=== PATIENT | female | born 1935 | race Caucasian/White ===

== ENCOUNTER → 2016-11-30 | Outpatient (CLI) | payer MEDICARE, OTHER ==
[2016-11-30 10:07] LABS: ALANINE AMINOTRANSFERASE 24 U/L (9-52); ALBUMIN 4.2 g/dL (3.5-5.0); ALKALINE PHOSPHATASE 102 U/L (38-126); ANION GAP 12 (5-19); ASPARTATE AMINO TRANSFERASE 20 U/L (14-36); BILIRUBIN,DIRECT 0.4 mg/dL (0.0-0.4); BILIRUBIN,TOTAL 0.9 mg/dL (0.2-1.3); BLOOD UREA NITROGEN 13 mg/dL (7-20); CALCIUM 9.8 mg/dL (8.4-10.2); CARBON DIOXIDE 31 mmol/L (22-30); CHLORIDE 94 mmol/L (98-107); CHOLESTEROL 214.42 mg/dL (0-200); CREATININE RESULT 0.86 mg/dL (0.52-1.25); Direct HDL 63 mg/dL (>40); GLUCOSE 87 mg/dL (75-110); POTASSIUM 4.2 mmol/L (3.6-5.0); SODIUM 136.5 mmol/L (137-145); TOTAL PROTEIN 7.2 g/dL (6.3-8.2); TRIGLYCERIDES 178 mg/dL (<150)
[2016-11-30 10:18] LABS: DIRECT LDL 90 mg/dL (<100)
[2016-11-30 11:07] LABS: FOLATE > 20.00 ng/mL (>2.76); VLDL CHOLESTEROL 35.6 mg/dL (10-31)
== END ==
LOC: OD 08:28
PROVIDERS: ATTEND Internal Medicine Geriatric Medicine
DX: I10 Essential (primary) hypertension (principal); R41.3 Other amnesia
CPT/HCPCS: 36415; 80053; 80061; 82607; 82746; 84443; 86592

== ENCOUNTER 2017-01-30 15:12 | Observation (INO) | payer MEDICARE, OTHER ==
[2017-01-30 16:33] LABS: ABSOLUTE BASOPHILS # (AUTO) 0.1 10^3/uL (0.0-0.2); ABSOLUTE EOSINOPHILS # (AUTO) 0.1 10^3/uL (0.0-0.6); ABSOLUTE LYMPHOCYTES (AUTO) 1.3 10^3/uL (0.5-4.7); ABSOLUTE MONOCYTES (AUTO) 0.6 10^3/uL (0.1-1.4); ABSOLUTE NEUT (AUTO) 3.4 10^3/uL (1.7-8.2); BASOPHILS % (AUTO) 1.1 % (0-2); EOSINOPHILS % (AUTO) 2.2 % (0-6); HEMATOCRIT 39.7 % (36.0-47.0); HEMOGLOBIN 13.4 g/dL (12.0-15.5); HGB HCT DIFFERENCE 0.5; LYMPHOCYTES % (AUTO) 23.6 % (13-45); MEAN CORPUSCULAR HEMOGLOBIN 27.7 pg (27.0-33.4); MEAN CORPUSCULAR HGB CONC 33.7 g/dL (32.0-36.0); MEAN CORPUSCULAR VOLUME 82 fl (80-97); RED BLOOD COUNT 4.83 10^6/uL (3.72-5.28); RED CELL DISTRIBUTION WIDTH 14.3 % (11.5-14.0); SEGMENTED NEUTROPHILS % (AUTO) 62.1 % (42-78); WHITE BLOOD COUNT 5.5 10^3/uL (4.0-10.5)
[2017-01-30 16:43] LABS: ALANINE AMINOTRANSFERASE 19 U/L (9-52); ALBUMIN 4.3 g/dL (3.5-5.0); ALKALINE PHOSPHATASE 99 U/L (38-126); ANION GAP 12 (5-19); ASPARTATE AMINO TRANSFERASE 18 U/L (14-36); BILIRUBIN,DIRECT 0.4 mg/dL (0.0-0.4); BILIRUBIN,TOTAL 0.7 mg/dL (0.2-1.3); BLOOD UREA NITROGEN 9 mg/dL (7-20); CALCIUM 9.6 mg/dL (8.4-10.2); CARBON DIOXIDE 30 mmol/L (22-30); CHLORIDE 90 mmol/L (98-107); CREATININE RESULT 0.91 mg/dL (0.52-1.25); GLUCOSE 88 mg/dL (75-110); POTASSIUM 3.7 mmol/L (3.6-5.0); SODIUM 132.1 mmol/L (137-145); TOTAL PROTEIN 7.5 g/dL (6.3-8.2)
[2017-01-30] MEDS ORDERED: ONDANSETRON HCL INJ/PF 4 MG/2 ML SDV IV PRN (16:45)
[2017-01-30] MEDS ORDERED: NORMAL SALINE 1000 ML 1,000 ML IV PRN ×2 (16:45→18:39)
[2017-01-30] MEDS ORDERED: ENOXAPARIN SODIUM INJ 40 MG/0.4 ML DISP.SYRIN SUBCUT ONE (17:00)
--- NOTE | 2017-01-30 17:18 | RADIOLOGY REPORT (SQ) ---
EXAM DESCRIPTION: CHEST PA/LAT COMPLETED DATE/TIME: 01/30/2017 4:59 pm REASON FOR STUDY: nausea and vomiting COMPARISON: Chest films 01/20/2014, 02/22/2015, 10/27/2015 EXAM PARAMETERS: NUMBER OF VIEWS: two views TECHNIQUE: Digital Frontal and Lateral radiographic views of the chest acquired. RADIATION DOSE: NA LIMITATIONS: none FINDINGS: LUNGS AND PLEURA: No opacities, masses or pneumothorax. No pleural effusion. MEDIASTINUM AND HILAR STRUCTURES: No masses or contour abnormalities. HEART AND VASCULAR STRUCTURES: Heart normal size. No evidence for failure. BONES: No acute findings. HARDWARE: Clips right upper quadrant post cholecystectomy. OTHER: No other significant finding. IMPRESSION: NO SIGNIFICANT RADIOGRAPHIC FINDING IN THE CHEST. TECHNICAL DOCUMENTATION: JOB ID: [id number] [employer]- All Rights Reserved
--- NOTE | 2017-01-30 17:19 | RADIOLOGY REPORT (SQ) ---
EXAM DESCRIPTION: KUB/ABDOMEN (SINGLE VIEW) COMPLETED DATE/TIME: 01/30/2017 4:59 pm REASON FOR STUDY: nausea and vomiting R11.10 VOMITING, UNSPECIFIED N39.0 URINARY TRACT INFECTION, SITE NOT SPECIFIED COMPARISON: 04/02/2015 NUMBER OF VIEWS: One view. TECHNIQUE: Supine radiographic image of the abdomen acquired. LIMITATIONS: None. FINDINGS: BOWEL GAS PATTERN: Normal bowel gas pattern. No dilated loops. Large amount of stool in t he ascending and transverse colon. CALCIFICATIONS: Calcified pelvic phleboliths. Midline 2.5 cm pelvic calcification likely a calcified fibroid. SOFT TISSUES: No gross mass or suggestion of organomegaly. HARDWARE: Clips right upper quadrant post cholecystectomy BONES: No acute fracture. No worrisome bone lesions. OTHER: No other significant finding. IMPRESSION: Large amount of stool in the ascending and transverse colon. TECHNICAL DOCUMENTATION: JOB ID: [id number] [employer]- All Rights Reserved
[2017-01-30] MEDS ORDERED: LACTULOSE SYRUP 20 GM/30 ML UDCUP PO ONE (18:38)
[2017-01-30] MEDS ORDERED: DOCUSATE SODIUM 100 MG CAPSULE PO ONE (18:39)
--- NOTE | 2017-01-30 18:57 | PDOC H&P ---
History of Present Illness Admission Date/PCP: 01/30/17 15:12 LISA OSKUSH Patient complains of: Nausea, vomiting, general feeling of unwell History of Present Illness: HUNG STOCKTON is a 81 year old female who presented to my office earlier today with listed complaints. Patient reported onset of nausea and vomiting since last night. Associated increase belching. No abdominal pain or diarrhea. Patient actually reported constipation with bowel movement about twice per week. She denied any chest pain, shortness of breath, dysuria, frequency, hematuria, or flank pain. No fever or chills. Patient reported increasing eye itching, right more than left with some amount of crusted mucous discharge. She denied any eye pain. Past Medical History Cardiac Medical History: Reports: Coronary Artery Disease - HIGH CHOLESTEROL, Hypertension, Heart Murmur Denies: Myocardial Infarction Pulmonary Medical History: Reports: Asthma, Bronchitis, Chronic Obstructive Pulmonary Disease (COPD), Pneumonia Denies: Tuberculosis Neurological Medical History: Denies: Seizures Endocrine Medical History: Reports: Hypothyroidism Musculoskeltal Medical History: Reports: Arthritis Hematology: Reports: Anemia Past Surgical History Past Surgical History: Reports: Appendectomy, Cholecystectomy, Hysterectomy, Tubal Ligation Denies: Pacemaker Social History Smoking Status: Never Smoker Frequency of Alcohol Use: None Hx Recreational Drug Use: No Drugs: None Hx Prescription Drug Abuse: No - Advance Directive Resuscitation Status: Full Code Family History Family History: Reviewed & Not Pertinent Parental Family History Reviewed: Yes Children Family History Reviewed: Yes Sibling(s) Family History Reviewed.: Yes Medication/Allergy Home Medications: Cyclosporine [Restasis Droperette] 1 drop OU Q12 01/30/17 Docusate Sodium [Colace 100 mg Capsule] 100 mg PO QHS 01/30/17 Folic Acid/Vitamin B Comp W-C [Folbee Plus Tablet] 1 tab PO DAILY 01/30/17 Furosemide [Lasix] 40 mg PO DAILY 01/30/17 Hydralazine HCl [Apresoline 50 mg Tablet] 50 mg PO Q12 01/30/17 Latanoprost [Xalatan 0.005% Oph Soln 2.5 ml] 1 drop OU QHS 01/30/17 Levothyroxine Sodium [Synthroid 0.075 mg Tablet] 75 mcg PO DAILY 01/30/17 Losartan Potassium [Cozaar 100 mg Tablet] 100 mg PO DAILY 01/30/17 Montelukast Sodium [Singulair 10 mg Tablet] 10 mg PO QHS 01/30/17 Omeprazole 40 mg PO DAILY 01/30/17 Potassium Chloride [Klor-Con 10 Meq Tablet.sa] 10 meq PO DAILY 01/30/17 Sertraline HCl [Zoloft 50 mg Tablet] 50 mg PO QHS 01/30/17 Tiotropium [place] [Spiriva Handihaler 18 mcg/dose (30 Dose)] 1 cap IH DAILY Tolterodine Tartrate [Tolterodine Tartrate ER] 4 mg PO DAILY 01/30/17 Verapamil HCl [Verapamil ER] 240 mg PO Q12 01/30/17 Allergies/Adverse Reactions: codeine [Codeine] Allergy (Intermediate, Verified 05/15/13) celecoxib [From Celebrex] Allergy (Unknown, Verified 05/15/13) Iodinated Contrast- Oral and IV Dye [IV Dye, Iodine Containing] Allergy ( Verified 05/15/13) iodine [Iodine] Allergy (Verified 05/15/13) povidone-iodine [From Betadine] Allergy (Verified 05/15/13) Soap [From Betadine] Allergy (Verified 05/15/13) Review of Systems Constitutional: ABSENT: chills, fever(s), headache(s), weight gain, weight loss Eyes: ABSENT: visual disturbances Ears: ABSENT: hearing changes Nose, Mouth, and Throat: ABSENT: as per HPI, headache(s), mouth pain, sore throat, vertigo, other Cardiovascular: ABSENT: chest pain, dyspnea on exertion, edema, orthropnea, palpitations Respiratory: ABSENT: cough, hemoptysis Gastrointestinal: PRESENT: constipation, nausea, vomiting. ABSENT: as per HPI, abdominal pain, bloating, coffee ground emesis, diarrhea, dysphagia, heartburn, hematemesis, hematochezia, melena, other Genitourinary: ABSENT: as per HPI, difficulty urinating, dysuria, hematuria, nocturia, other Musculoskeletal: ABSENT: as per HPI, back pain, deformity, joint swelling, muscle weakness, other Integumentary: PRESENT: pruritus - around right eye. ABSENT: as per HPI, diaphoresis, erythema, lesions, rash, wounds, other Neurological: ABSENT: abnormal gait, abnormal speech, confusion, dizziness, focal weakness, syncope Psychiatric: ABSENT: as per HPI, anxiety, depression, hallucinations, homidical ideation, suicidal ideation, other Endocrine: ABSENT: as per HPI, cold intolerance, flushing, heat intolerance, polydipsia, polyphagia, polyuria, other Hematologic/Lymphatic: ABSENT: easy bleeding, easy bruising, lymphadenopathy Allergic/Immunologic: PRESENT: seasonal rhinorrhea Physical Exam Vital Signs: Temp Pulse Resp BP Pulse Ox 97.4 F 87 18 167/80 H 98 01/30/17 15:35 01/30/17 15:35 01/30/17 15:35 01/30/17 15:35 01/30/17 15:35 Intake & Output 01/29/17 01/30/17 01/31/17 06:59 06:59 06:59 Weight 65.3 kg General appearance: PRESENT: no acute distress, well-developed, well-nourished Head exam: PRESENT: atraumatic, normocephalic Eye exam: PRESENT: conjunctiva pink, EOMI, PERRLA. ABSENT: scleral icterus Ear exam: PRESENT: normal external ear exam Mouth exam: PRESENT: moist, tongue midline Teeth exam: ABSENT: dental caries, dental tenderness, edentulous, poor dentation , other Throat exam: ABSENT: post pharyngeal erythema, tonsillar erythema, tonsillar exudate, tonsillogmegaly, other Neck exam: PRESENT: full ROM. ABSENT: carotid bruit, JVD, lymphadenopathy, thyromegaly Respiratory exam: PRESENT: clear to auscultation kalyan. ABSENT: chest wall tenderness, crackles, prolonged expiratory phas, rhonchi, wheezes Cardiovascular exam: PRESENT: RRR. ABSENT: diastolic murmur, rubs, systolic murmur Pulses: PRESENT: normal dorsalis pedis pul, +2 pedal pulses bilateral Vascular exam: PRESENT: normal capillary refill GI/Abdominal exam: PRESENT: normal bowel sounds, soft. ABSENT: distended, guarding, mass, organolmegaly, rebound, tenderness Rectal exam: PRESENT: deferred Extremities exam: ABSENT: pedal edema Musculoskeletal exam: PRESENT: deformity - related to multiple joints involvement with arthritis Neurological exam: PRESENT: alert, awake, oriented to person, oriented to place , oriented to time, oriented to situation, CN II-XII grossly intact. ABSENT: motor sensory deficit Psychiatric exam: PRESENT: appropriate affect, normal mood. ABSENT: homicidal ideation, suicidal ideation Skin exam: PRESENT: dry, intact, warm. ABSENT: cyanosis, rash Results Laboratory Results: 01/30/17 16:20 01/30/17 16:20 01/30/17 01/30/17 16:20 16:20 WBC 5.5 RBC 4.83 Hgb 13.4 Hct 39.7 MCV 82 MCH 27.7 MCHC 33.7 RDW 14.3 H Plt Count 272 Seg Neutrophils % 62.1 Lymphocytes % 23.6 Monocytes % 11.0 Eosinophils % 2.2 Basophils % 1.1 Absolute Neutrophils 3.4 Absolute Lymphocytes 1.3 Absolute Monocytes 0.6 Absolute Eosinophils 0.1 Absolute Basophils 0.1 Sodium 132.1 L Potassium 3.7 Chloride 90 L Carbon Dioxide 30 Anion Gap 12 BUN 9 Creatinine 0.91 Est GFR ( Amer) > 60 Est GFR (Non-Af Amer) 59 L Glucose 88 Calcium 9.6 Total Bilirubin 0.7 AST 18 ALT 19 Alkaline Phosphatase 99 Total Protein 7.5 Albumin 4.3 Impressions: Chest X-Ray 01/30/17 00:00 IMPRESSION: NO SIGNIFICANT RADIOGRAPHIC FINDING IN THE CHEST. KUB X-Ray 01/30/17 00:00 IMPRESSION: Large amount of stool in the ascending and transverse colon. Assessment & Plan - Diagnosis (1) Nausea & vomiting Is this a current diagnosis for this admission?: YesPlan: See admitting physician orders. (2) Hyponatremia Is this a current diagnosis for this admission?: YesPlan: See admitting physician orders. (3) Constipation Qualifiers: Constipation type: chronic idiopathic constipation Qualified Code(s) : K59.04 - Chronic idiopathic constipation Is this a current diagnosis for this admission?: YesPlan: See admitting physician orders. (4) Hypothyroidism Qualifiers: Hypothyroidism type: unspecified Qualified Code(s): E03.9 - Hypothyroidism, unspecified Is this a current diagnosis for this admission?: YesPlan: See admitting physician orders. (5) HTN (hypertension) Qualifiers: Hypertension type: essential hypertension Qualified Code(s): I10 - Essential (primary) hypertension Is this a current diagnosis for this admission?: YesPlan: See admitting physician orders. (6) COPD (chronic obstructive pulmonary disease) Qualifiers: COPD type: unspecified COPD Qualified Code(s): J44.9 - Chronic obstructive pulmonary disease, unspecified Is this a current diagnosis for this admission?: YesPlan: See admitting physician orders. (7) Osteoarthritis involving multiple joints on both sides of body Is this a current diagnosis for this admission?: YesPlan: See admitting physician orders. (8) Anemia Qualifiers: Anemia type: unspecified type Qualified Code(s): D64.9 - Anemia, unspecified Is this a current diagnosis for this admission?: YesPlan: See admitting physician orders. - Time Time Spent: Greater than 70 Minutes Medications reviewed and adjusted accordingly: Yes Anticipated discharge: Home Within: within 48 hours - Inpatient Certification Medical Necessity: Need Close Monitoring Due to Risk of Patient Decompensation, Need For IV Fluids, Risk of Complication if Not Cared For in Hospital Post Hospital Care: D/C [employer] Documentation - Plan Summary Plan Summary: See admitting physician orders.
[2017-01-30] MEDS: OLOPATADINE HCL 0.1% OPH SOLN 5 ML OU SCH (21:26)
[2017-01-30] MEDS: CYCLOSPORINE 0.05% OPH EMULSIO 0.4 ML DROPERETTE OU SCH (21:28)
[2017-01-30] MEDS: HYDRALAZINE HCL 50 MG TABLET PO SCH (21:30)
[2017-01-30] MEDS: VERAPAMIL HCL 240 MG TABLET.SA PO SCH (21:31)
[2017-01-30] MEDS: SERTRALINE HCL 50 MG TABLET PO SCH (21:31)
[2017-01-30] MEDS: MONTELUKAST SODIUM 10 MG TABLET PO SCH (21:31)
[2017-01-30] MEDS: LATANOPROST 0.005% OPH SOLN 2.5 ML OU SCH (21:34)
[2017-01-31 02:19] LABS: APPEARANCE,URINE CLEAR; BILIRUBIN,URINE NEGATIVE (NEGATIVE); GLUCOSE, URINE NEGATIVE (NEGATIVE); KETONES,URINE NEGATIVE (NEGATIVE); LEUKOCYTE ESTERASE,URINE MODERATE (NEGATIVE); NITRITE,URINE NEGATIVE (NEGATIVE); PROTEIN,URINE NEGATIVE (NEGATIVE); URINE SPECIFIC GRAVITY 1.003; UROBILINOGEN,URINE NEGATIVE mg/dL (<2.0)
[2017-01-31 05:51] LABS: ANION GAP 9 (5-19); BLOOD UREA NITROGEN 8 mg/dL (7-20); CALCIUM 9.1 mg/dL (8.4-10.2); CARBON DIOXIDE 27 mmol/L (22-30); CHLORIDE 96 mmol/L (98-107); CREATININE RESULT 0.87 mg/dL (0.52-1.25); GLUCOSE 82 mg/dL (75-110); POTASSIUM 3.5 mmol/L (3.6-5.0); SODIUM 131.8 mmol/L (137-145)
--- NOTE | 2017-01-31 09:00 | PDOC PROGRESS REPORT ---
Subjective Progress Note for:: 01/31/17 Subjective:: No bowel movement so far. Patient denied any significant nausea or vomiting since admission. No abdominal pain. No chest pain or difficulty with breathing. No dysuria. No fever or chills. Physical Exam Vital Signs: Temp Pulse Resp BP Pulse Ox 97.8 F 77 16 135/63 H 96 01/31/17 04:00 01/31/17 04:00 01/31/17 04:00 01/31/17 04:00 01/31/17 04:00 Intake & Output 01/30/17 01/31/17 02/01/17 06:59 06:59 06:59 Intake Total 420 Output Total 450 Balance -30 Weight 67.7 kg General appearance: PRESENT: no acute distress, well-developed, well-nourished Head exam: PRESENT: atraumatic, normocephalic Eye exam: PRESENT: conjunctiva pink, EOMI, PERRLA. ABSENT: scleral icterus Mouth exam: PRESENT: moist, tongue midline Respiratory exam: PRESENT: clear to auscultation kalyan Cardiovascular exam: PRESENT: RRR. ABSENT: diastolic murmur, rubs, systolic murmur GI/Abdominal exam: PRESENT: normal bowel sounds, soft. ABSENT: distended, guarding, mass, organolmegaly, rebound, tenderness Extremities exam: ABSENT: pedal edema Musculoskeletal exam: PRESENT: deformity - due to multiple joint involvement with arthritis. Neurological exam: PRESENT: alert, awake, oriented to person, oriented to place , oriented to time, oriented to situation, CN II-XII grossly intact. ABSENT: motor sensory deficit Psychiatric exam: PRESENT: appropriate affect, normal mood. ABSENT: homicidal ideation, suicidal ideation Skin exam: PRESENT: dry, intact, warm. ABSENT: cyanosis, rash Results Laboratory Results: 01/30/17 16:20 01/31/17 04:38 01/30/17 01/30/17 01/30/17 16:20 16:20 16:20 WBC 5.5 RBC 4.83 Hgb 13.4 Hct 39.7 MCV 82 MCH 27.7 MCHC 33.7 RDW 14.3 H Plt Count 272 Seg Neutrophils % 62.1 Lymphocytes % 23.6 Monocytes % 11.0 Eosinophils % 2.2 Basophils % 1.1 Absolute Neutrophils 3.4 Absolute Lymphocytes 1.3 Absolute Monocytes 0.6 Absolute Eosinophils 0.1 Absolute Basophils 0.1 Sodium 132.1 L Potassium 3.7 Chloride 90 L Carbon Dioxide 30 Anion Gap 12 BUN 9 Creatinine 0.91 Est GFR ( Amer) > 60 Est GFR (Non-Af Amer) 59 L Glucose 88 Serum Osmolality 267 L Calcium 9.6 Total Bilirubin 0.7 AST 18 ALT 19 Alkaline Phosphatase 99 Total Protein 7.5 Albumin 4.3 Urine Color Urine Appearance Urine pH Ur Specific [place] Urine Protein Urine Glucose (UA) Urine Ketones Urine Blood Urine Nitrite Ur Leukocyte Esterase Urine WBC (Auto) Urine RBC (Auto) Urine Osmolality 01/31/17 01/31/17 01/31/17 01:55 01:55 04:38 WBC RBC Hgb Hct MCV MCH MCHC RDW Plt Count Seg Neutrophils % Lymphocytes % Monocytes % Eosinophils % Basophils % Absolute Neutrophils Absolute Lymphocytes Absolute Monocytes Absolute Eosinophils Absolute Basophils Sodium 131.8 L Potassium 3.5 L Chloride 96 L Carbon Dioxide 27 Anion Gap 9 BUN 8 Creatinine 0.87 Est GFR ( Amer) > 60 Est GFR (Non-Af Amer) > 60 Glucose 82 Serum Osmolality Calcium 9.1 Total Bilirubin AST ALT Alkaline Phosphatase Total Protein Albumin Urine Color STRAW Urine Appearance CLEAR Urine pH 8.0 Ur Specific [place] 1.003 Urine Protein NEGATIVE Urine Glucose (UA) NEGATIVE Urine Ketones NEGATIVE Urine Blood NEGATIVE Urine Nitrite NEGATIVE Ur Leukocyte Esterase MODERATE H Urine WBC (Auto) 3 Urine RBC (Auto) 1 Urine Osmolality 163 L Impressions: Chest X-Ray 01/30/17 00:00 IMPRESSION: NO SIGNIFICANT RADIOGRAPHIC FINDING IN THE CHEST. KUB X-Ray 01/30/17 00:00 IMPRESSION: Large amount of stool in the ascending and transverse colon. Assessment & Plan - Diagnosis (1) Nausea & vomiting Is this a current diagnosis for this admission?: Yes (2) Hyponatremia Is this a current diagnosis for this admission?: YesPlan: Probably related to diuretic usage. She demonstrate hypokalemia which will be replaced and monitor response. Obtain serum magnesium level. Continue IV normal saline infusion. Repeat BMP this evening for need of further electrolyte correction. (3) Constipation Qualifiers: Constipation type: chronic idiopathic constipation Qualified Code(s) : K59.04 - Chronic idiopathic constipation Is this a current diagnosis for this admission?: YesPlan: Repeat lactulose 20 gm po q4hrs x 2 doses (4) Hypothyroidism Qualifiers: Hypothyroidism type: unspecified Qualified Code(s): E03.9 - Hypothyroidism, unspecified Is this a current diagnosis for this admission?: Yes (5) HTN (hypertension) Qualifiers: Hypertension type: essential hypertension Qualified Code(s): I10 - Essential (primary) hypertension Is this a current diagnosis for this admission?: Yes (6) COPD (chronic obstructive pulmonary disease) Qualifiers: COPD type: unspecified COPD Qualified Code(s): J44.9 - Chronic obstructive pulmonary disease, unspecified Is this a current diagnosis for this admission?: Yes (7) 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
[2017-01-31] MEDS: LOSARTAN POTASSIUM 50 MG TABLET PO SCH (09:07)
[2017-01-31] MEDS: TOLTERODINE TARTRATE 1 MG TABLET PO SCH (09:08)
[2017-01-31] MEDS: DOCUSATE SODIUM 100 MG CAPSULE PO SCH (09:08)
[2017-01-31] MEDS: POTASSIUM CHLORIDE 10 MEQ TABLET.SA PO SCH ×4 (09:09→17:22)
[2017-01-31] MEDS: HYDRALAZINE HCL 50 MG TABLET PO SCH ×2 (09:09→22:35)
[2017-01-31] MEDS: VERAPAMIL HCL 240 MG TABLET.SA PO SCH ×2 (09:09→22:34)
[2017-01-31] MEDS: CYANOCOBALAMIN/FA/PYRIDOXINE TABLET PO SCH (09:10)
[2017-01-31] MEDS: CYCLOSPORINE 0.05% OPH EMULSIO 0.4 ML DROPERETTE OU SCH ×2 (09:10→22:34)
[2017-01-31] MEDS: OLOPATADINE HCL 0.1% OPH SOLN 5 ML OU SCH ×2 (09:10→17:25)
[2017-01-31] MEDS: LANSOPRAZOLE 30 MG TAB.RAP.DR PO SCH (09:11)
[2017-01-31] MEDS: LACTULOSE SYRUP 20 GM/30 ML UDCUP PO SCH ×2 (09:11→14:24)
[2017-01-31] MEDS: LEVOTHYROXINE SODIUM 0.075 MG TABLET PO SCH (09:11)
[2017-01-31] MEDS: TIOTROPIUM BROMIDE DPI 5 CAP/KIT (18 MCG/CAP) IH SCH (09:11)
[2017-01-31] MEDS: ENOXAPARIN SODIUM INJ 40 MG/0.4 ML DISP.SYRIN SUBCUT SCH (09:12)
[2017-01-31] MEDS ORDERED: (PENDING PHARMACY ID) (Tolterodine Tartrate [Tolterodine Tartrate Er] 4 MG) PO SCH (10:00)
[2017-01-31] MEDS ORDERED: FOLIC ACID PO SCH (10:00)
[2017-01-31] MEDS ORDERED: FUROSEMIDE 40 MG TABLET PO SCH (10:00)
[2017-01-31] MEDS ORDERED: VITAMIN B COMP W C PO SCH (10:00)
[2017-01-31] MEDS ORDERED: MAGNESIUM SULFATE/D5W 100 ML IV ONE (18:04)
[2017-01-31 18:12] LABS: ANION GAP 12 (5-19); BLOOD UREA NITROGEN 7 mg/dL (7-20); CALCIUM 9.5 mg/dL (8.4-10.2); CARBON DIOXIDE 25 mmol/L (22-30); CHLORIDE 99 mmol/L (98-107); CREATININE RESULT 0.73 mg/dL (0.52-1.25); GLUCOSE 95 mg/dL (75-110); POTASSIUM 4.3 mmol/L (3.6-5.0); SODIUM 135.7 mmol/L (137-145)
[2017-01-31] MEDS: LATANOPROST 0.005% OPH SOLN 2.5 ML OU SCH (22:34)
[2017-01-31] MEDS: MONTELUKAST SODIUM 10 MG TABLET PO SCH (22:35)
[2017-01-31] MEDS: SERTRALINE HCL 50 MG TABLET PO SCH (22:35)
[2017-02-01 05:29] LABS: ANION GAP 10 (5-19); BLOOD UREA NITROGEN 6 mg/dL (7-20); CALCIUM 9.1 mg/dL (8.4-10.2); CARBON DIOXIDE 22 mmol/L (22-30); CHLORIDE 103 mmol/L (98-107); CREATININE RESULT 0.65 mg/dL (0.52-1.25); GLUCOSE 86 mg/dL (75-110); MAGNESIUM 1.9 mg/dL (1.6-2.3); POTASSIUM 4.8 mmol/L (3.6-5.0); SODIUM 134.5 mmol/L (137-145)
--- NOTE | 2017-02-01 08:46 | PDOC DISCHARGE SUMMARY ---
General - Admit/Disc Date/PCP Admission Date/Primary Care Provider: 01/30/17 18:40 LISA LUTZ Discharge Date: 02/01/17 - Discharge Diagnosis (1) Nausea & vomiting Is this a current diagnosis for this admission?: Yes (2) Hyponatremia Is this a current diagnosis for this admission?: Yes (3) Constipation Is this a current diagnosis for this admission?: Yes (4) Hypothyroidism Is this a current diagnosis for this admission?: Yes (5) HTN (hypertension) Is this a current diagnosis for this admission?: Yes (6) COPD (chronic obstructive pulmonary disease) Is this a current diagnosis for this admission?: Yes (7) Osteoarthritis involving multiple joints on both sides of body Is this a current diagnosis for this admission?: Yes (8) Anemia Is this a current diagnosis for this admission?: Yes - Additional Information Resuscitation Status: Full Code Home Medications: Cyclosporine [Restasis Droperette] 1 drop OU Q12 01/30/17 Folic Acid/Vitamin B Comp W-C [Folbee Plus Tablet] 1 tab PO DAILY 01/30/17 Hydralazine HCl [Apresoline 50 mg Tablet] 50 mg PO Q12 01/30/17 Latanoprost [Xalatan 0.005% Oph Soln 2.5 ml] 1 drop OU QHS 01/30/17 Levothyroxine Sodium [Synthroid 0.075 mg Tablet] 75 mcg PO DAILY 01/30/17 Losartan Potassium [Cozaar 100 mg Tablet] 100 mg PO DAILY 01/30/17 Montelukast Sodium [Singulair 10 mg Tablet] 10 mg PO QHS 01/30/17 Omeprazole 40 mg PO DAILY 01/30/17 Sertraline HCl [Zoloft 50 mg Tablet] 50 mg PO QHS 01/30/17 Tiotropium [place] [Spiriva Handihaler 18 mcg/dose (30 Dose)] 1 cap IH DAILY Tolterodine Tartrate [Tolterodine Tartrate ER] 4 mg PO DAILY 01/30/17 Verapamil HCl [Verapamil ER] 240 mg PO Q12 01/30/17 Docusate Sodium [Colace 100 mg Capsule] 200 mg PO QHS #60 capsule 02/01/17 Olopatadine HCl [Patanol 0.1% Oph Soln 5 ml] 1 drop OU BID #1 bottle 02/01/17 History of Present Illness History of Present Illness: HUNG STOCKTON is a 81 year old female who presented to my office earlier today with listed complaints. Patient reported onset of nausea and vomiting since last night. Associated increase belching. No abdominal pain or diarrhea. Patient actually reported constipation with bowel movement about twice per week. She denied any chest pain, shortness of breath, dysuria, frequency, hematuria, or flank pain. No fever or chills. Patient reported increasing eye itching, right more than left with some amount of crusted mucous discharge. She denied any eye pain. Hospital Course Hospital Course: Patient is doing well and tolerating oral feeding. No nausea, vomiting, or abdominal pain. She had satisfactory bowel movement. Her hyponatremia, most likely due to diuretic usage has improved. Her hypokalemia has improved. She is agreeable to discharge home today. She will follow up in the office as instructed upon discharge. Physical Exam Vital Signs: Temp Pulse Resp BP Pulse Ox 97.4 F 84 16 127/51 H 98 01/31/17 23:50 01/31/17 23:50 01/31/17 23:50 01/31/17 23:50 01/31/17 23:50 Intake & Output 01/31/17 02/01/17 02/02/17 06:59 06:59 06:59 Intake Total 420 600 Output Total 450 500 Balance -30 100 Weight 67.7 kg 67.4 kg Physical Exam: General appearance: PRESENT: no acute distress, well-developed, well-nourished Head exam: PRESENT: atraumatic, normocephalic Eye exam: PRESENT: conjunctiva pink, EOMI, PERRLA. ABSENT: scleral icterus Mouth exam: PRESENT: moist, tongue midline Respiratory exam: PRESENT: clear to auscultation kalyan Cardiovascular exam: PRESENT: RRR. ABSENT: diastolic murmur, rubs, systolic murmur GI/Abdominal exam: PRESENT: normal bowel sounds, soft. ABSENT: distended, guarding, mass, organomegaly, rebound, tenderness Extremities exam: ABSENT: pedal edema Musculoskeletal exam: PRESENT: deformity - due to multiple joint involvement with arthritis. Neurological exam: PRESENT: alert, awake, oriented to person, oriented to place , oriented to time, oriented to situation, CN II-XII grossly intact. ABSENT: motor sensory deficit Psychiatric exam: PRESENT: appropriate affect, normal mood. ABSENT: homicidal ideation, suicidal ideation Skin exam: PRESENT: dry, intact, warm. ABSENT: cyanosis, rash Results Laboratory Results: 01/30/17 16:20 02/01/17 04:43 01/31/17 01/31/17 02/01/17 04:38 17:44 04:43 Sodium 135.7 L 134.5 L Potassium 4.3 4.8 Chloride 99 103 Carbon Dioxide 25 22 Anion Gap 12 10 BUN 7 6 L Creatinine 0.73 0.65 Est GFR ( Amer) > 60 > 60 Est GFR (Non-Af Amer) > 60 > 60 Glucose 95 86 Calcium 9.5 9.1 Magnesium 1.6 1.9 Impressions: Chest X-Ray 01/30/17 00:00 IMPRESSION: NO SIGNIFICANT RADIOGRAPHIC FINDING IN THE CHEST. Status: Image reviewed by me - Her repeat KUB did revealed comparatively improved fecal burden. Qualifiers PATEINT BEING DISCHARGED WITH ANY OF THE FOLLOWING DIAGNOSIS?: No Plan Discharge Plan: D/C home today. Follow up in the office as instructed upon discharge.
--- NOTE | 2017-02-01 09:40 | RADIOLOGY REPORT (SQ) ---
EXAM DESCRIPTION: KUB/ABDOMEN (SINGLE VIEW) COMPLETED DATE/TIME: 02/01/2017 8:23 am REASON FOR STUDY: Constipation R11.10 VOMITING, UNSPECIFIED N39.0 URINARY TRACT INFECTION, SITE NO T SPECIFIED COMPARISON: None. NUMBER OF VIEWS: One view. TECHNIQUE: Supine radiographic image of the abdomen acquired. LIMITATIONS: None. FINDINGS: BOWEL GAS PATTERN: Moderate to large colonic stool burden. Nonspecific bowel gas pattern. CALCIFICATIONS: Calcification noted in the midline and pelvis could represent calcified fibroid. Pel jordi phleboliths noted. SOFT TISSUES: No gross mass or suggestion of organomegaly. HARDWARE: Prior cholecystectomy. BONES: Multilevel degenerative changes of the lumbar spine including degenerative disc disease and sp ondylosis. Levoconvex scoliosis of the spine. No acute osseous abnormality. No worrisome bony lesi ons. OTHER: No other significant finding. IMPRESSION: Moderate to large colonic stool burden. Nonspecific bowel gas pattern. Calcifications midline pelvis likely representing calcified uterine fibroid. TECHNICAL DOCUMENTATION: JOB ID: [id number] [employer]- All Rights Reserved
[2017-02-01] MEDS: CYANOCOBALAMIN/FA/PYRIDOXINE TABLET PO SCH (10:06)
[2017-02-01] MEDS: VERAPAMIL HCL 240 MG TABLET.SA PO SCH (10:06)
[2017-02-01] MEDS: LEVOTHYROXINE SODIUM 0.075 MG TABLET PO SCH (10:06)
[2017-02-01] MEDS: TOLTERODINE TARTRATE 1 MG TABLET PO SCH (10:06)
[2017-02-01] MEDS: TIOTROPIUM BROMIDE DPI 5 CAP/KIT (18 MCG/CAP) IH SCH (10:07)
[2017-02-01] MEDS: POTASSIUM CHLORIDE 10 MEQ TABLET.SA PO SCH (10:07)
[2017-02-01] MEDS: OLOPATADINE HCL 0.1% OPH SOLN 5 ML OU SCH (10:07)
[2017-02-01] MEDS: DOCUSATE SODIUM 100 MG CAPSULE PO SCH (10:07)
[2017-02-01] MEDS: LANSOPRAZOLE 30 MG TAB.RAP.DR PO SCH (10:07)
[2017-02-01] MEDS: CYCLOSPORINE 0.05% OPH EMULSIO 0.4 ML DROPERETTE OU SCH (10:08)
[2017-02-01] MEDS: LOSARTAN POTASSIUM 50 MG TABLET PO SCH (10:08)
[2017-02-01] MEDS: HYDRALAZINE HCL 50 MG TABLET PO SCH (10:08)
[2017-02-01] MEDS: ENOXAPARIN SODIUM INJ 40 MG/0.4 ML DISP.SYRIN SUBCUT SCH (10:18)
[2017-02-01 11:56] VITALS: BP 158/70
== END 2017-02-01 12:48 | disposition home or self-care (01) ==
LOC: EH 15:12 → UNDOADMOB 15:12 → 4N 15:12
PROVIDERS: ADMIT Internal Medicine Geriatric Medicine; ATTEND Internal Medicine Geriatric Medicine
DX: R11.2 Nausea with vomiting, unspecified (principal); E87.1 Hypo-osmolality and hyponatremia; K59.04 Chronic idiopathic constipation; E03.9 Hypothyroidism, unspecified; I10 Essential (primary) hypertension; J44.9 Chronic obstructive pulmonary disease, unspecified; M15.9 Polyosteoarthritis, unspecified; D64.9 Anemia, unspecified; I25.10 Atherosclerotic heart disease of native coronary artery without angina pectoris; L29.8 Other pruritus; J34.89 Other specified disorders of nose and nasal sinuses; G35 Multiple sclerosis; I83.93 Asymptomatic varicose veins of bilateral lower extremities; H57.9 Unspecified disorder of eye and adnexa; Z79.899 Other long term (current) drug therapy; Z90.49 Acquired absence of other specified parts of digestive tract; Z90.710 Acquired absence of both cervix and uterus; Z98.51 Tubal ligation status; Z80.9 Family history of malignant neoplasm, unspecified
CPT/HCPCS: 36415 ×3; 87086; 83735 ×2; 83930; 83935; 84300; 85025; 80048 ×2; 80053; 81001; 71020; 74000 ×2; G0378 ×3; G0379; A9270 ×27; J3490 ×2; J1650; J3475; J7030 ×2

== ENCOUNTER 2019-06-25 18:05 | Inpatient (IN) | payer MEDICARE, OTHER ==
[2019-06-25 18:41] LABS: ABSOLUTE BASOPHILS # (AUTO) 0.1 10^3/uL (0.0-0.2); ABSOLUTE EOSINOPHILS # (AUTO) 0.5 10^3/uL (0.0-0.6); ABSOLUTE LYMPHOCYTES (AUTO) 2.7 10^3/uL (0.5-4.7); ABSOLUTE NEUT (AUTO) 3.6 10^3/uL (1.7-8.2); BASOPHILS % (AUTO) 0.8 % (0-2); EOSINOPHILS % (AUTO) 6.5 % (0-6); HEMATOCRIT 37.7 % (36.0-47.0); HEMOGLOBIN 12.6 g/dL (12.0-15.5); MEAN CORPUSCULAR HEMOGLOBIN 28.1 pg (27.0-33.4); MEAN CORPUSCULAR HGB CONC 33.6 g/dL (32.0-36.0); MEAN CORPUSCULAR VOLUME 84 fl (80-97); MONOCYTES % (AUTO) 13.1 % (3-13); PLATELET COUNT 342 10^3/uL (150-450); RED BLOOD COUNT 4.51 10^6/uL (3.72-5.28); RED CELL DISTRIBUTION WIDTH 13.8 % (11.5-14.0); SEGMENTED NEUTROPHILS % (AUTO) 45.6 % (42-78); TOTAL CELLS COUNTED % (AUTO) 100 %; WHITE BLOOD COUNT 7.9 10^3/uL (4.0-10.5)
--- NOTE | 2019-06-25 18:48 | RADIOLOGY REPORT (SQ) ---
EXAM DESCRIPTION: CHEST SINGLE VIEW COMPLETED DATE/TIME: 06/25/2019 6:22 pm REASON FOR STUDY: bed 19 db COMPARISON: 01/30/2017 TECHNIQUE: Single frontal radiographic view of the chest acquired. NUMBER OF VIEWS: One view. LIMITATIONS: None. FINDINGS: LUNGS AND PLEURA: No pneumothorax. No consolidation or pleural effusion. MEDIASTINUM AND HILAR STRUCTURES: Stable. HEART AND VASCULAR STRUCTURES: Stable. BONES: No acute findings. HARDWARE: None in the chest. OTHER: No other significant finding. IMPRESSION: NO ACUTE FINDINGS. TECHNICAL DOCUMENTATION: JOB ID: [id number] [employer]- All Rights Reserved Reading location - IP/workstation name: [email or web address]
[2019-06-25 19:05] LABS: ALBUMIN 4.1 g/dL (3.5-5.0); ALKALINE PHOSPHATASE 90 U/L (38-126); ANION GAP 16 (5-19); ASPARTATE AMINO TRANSFERASE 25 U/L (14-36); BILIRUBIN,DIRECT 0.3 mg/dL (0.0-0.4); BILIRUBIN,TOTAL 0.8 mg/dL (0.2-1.3); BLOOD UREA NITROGEN 11 mg/dL (7-20); CALCIUM 9.5 mg/dL (8.4-10.2); CARBON DIOXIDE 23 mmol/L (22-30); CHLORIDE 97 mmol/L (98-107); CREATINE KINASE 113 U/L (30-135); GLUCOSE 110 mg/dL (75-110); POTASSIUM 3.7 mmol/L (3.6-5.0); TOTAL PROTEIN 6.8 g/dL (6.3-8.2)
[2019-06-25 19:19] LABS: CREATINE KINASE MB 1.08 ng/mL (<4.55)
[2019-06-25 19:23] LABS: TROPONIN I < 0.012 ng/mL
[2019-06-25] MEDS ORDERED: NORMAL SALINE 1000 ML 1,000 ML IV ONE (20:15)
--- NOTE | 2019-06-25 20:26 | EKG REPORT ---
SEVERITY:- ABNORMAL ECG - SINUS RHYTHM CONSIDER ANTEROSEPTAL INFARCT NONSPECIFIC T ABNORMALITIES, LATERAL LEADS : Confirmed by: Froylan Carlson MD 25-Jun-2019 20:25:52
[2019-06-25] MEDS ORDERED: IPRATROPIUM/ALBUTEROL 0.5-2.5 MG/3 ML AMPUL NEB ONE (20:47)
[2019-06-25] MEDS ORDERED: DOXYCYCLINE HYCLATE 100 MG TABLET PO ONE (21:42)
--- NOTE | 2019-06-25 21:43 | ER Document Report ---
Entered by ROSALIA BERG SCRIBE 06/25/191957 Acting as scribe for:EDWIGE CALDERON DO ED Respiratory Problem - General Chief Complaint: Shortness Of Breath Stated Complaint: SHORTNESS OF BREATH Time Seen by Provider: 06/25/19 18:21 Primary Care Provider: LISA LUTZ MD [Primary Care Provider] - Follow up as needed Mode of Arrival: Ambulatory Information source: Patient Notes: This 83-year-old female patient presents to the emergency department today with complaints of shortness of breath. Patient was given Solu-Medrol and magnesium by EMS prior to arrival here which she states seemed to help a lot. Patient is a former smoker, stating that she stopped smoking several years ago. Patient denies fevers. TRAVEL OUTSIDE OF THE [place] IN LAST 30 DAYS: No - Related Data Allergies/Adverse Reactions: codeine [Codeine] Allergy (Intermediate, Verified 05/15/13 00:26) celecoxib [From Celebrex] Allergy (Unknown, Verified 05/15/13 00:26) Iodinated Contrast Media [IV Dye, Iodine Containing] Allergy (Verified 05/15/13 00:26) iodine [Iodine] Allergy (Verified 05/15/13 00:26) povidone-iodine [From Betadine] Allergy (Verified 05/15/13:26) Soap [From Betadine] Allergy (Verified 05/15/13 00:26) Past Medical History - General Information source: Patient - Social History Smoking Status: Former Smoker Cigarette use (# per day): No Chew tobacco use (# tins/day): No Smoking Education Provided: No Frequency of alcohol use: None Drug Abuse: None Lives with: Family Family History: Reviewed & Not Pertinent Patient has suicidal ideation: No Patient has homicidal ideation: No - Past Medical History Cardiac Medical History: Reports: Hx Coronary Artery Disease - HIGH CHOLESTEROL, Hx Hypertension, Hx Heart Murmur Pulmonary Medical History: Reports: Hx Asthma, Hx Bronchitis, Hx COPD, Hx Pneumonia Endocrine Medical History: Reports: Hx Hypothyroidism Renal/ Medical History: Reports: Hx Kidney Stones, Hx Ovarian Cysts Musculoskeletal Medical History: Reports Hx Arthritis Traumatic Medical History: Reports: Hx Fractures - foot, tailbone, ribs Past Surgical History: Reports: Hx Appendectomy, Hx Cholecystectomy, Hx Hystere ctomy, Hx Tubal Ligation - Immunizations Hx Diphtheria, Pertussis, Tetanus Vaccination: No Hx Pneumococcal Vaccination: 05/06/11 Review of Systems - Review of Systems Constitutional: No symptoms reported EENT: No symptoms reported Cardiovascular: No symptoms reported Respiratory: See HPI, Short of breath Gastrointestinal: No symptoms reported Genitourinary: No symptoms reported Female Genitourinary: No symptoms reported Musculoskeletal: No symptoms reported Skin: No symptoms reported Hematologic/Lymphatic: No symptoms reported Neurological/Psychological: No symptoms reported -: Yes All other systems reviewed and negative Physical Exam - Vital signs Vitals: Pulse Ox 100 06/25/19 18:06 - Notes Notes: Physical Exam: General: Alert, appears short of breath. HEENT: Normocephalic. Atraumatic. PERRL. Extraocular movements intact. Oropharynx clear. Neck: Supple. Non-tender. Respiratory: Mild respiratory distress. Nasal cannula in place, wheezing bilaterally. Cardiovascular: Regular rate and rhythm. Abdominal: Normal Inspection. Non-tender. No distension. Normal Bowel Sounds. Back: No gross abnormalities. Extremities: Moves all four extremities. Upper extremities: Normal inspection. Normal ROM. Lower extremities: Normal inspection. No edema. Normal ROM. Neurological: Normal cognition. AAOx4. Normal speech. Psychological: Normal affect. Normal Mood. Skin: Warm. Dry. Normal color. Course - Re-evaluation Re-evalutation: 06/25/19 21:00 Patient is an 83-year-old female with a history of COPD who comes in with difficulty breathing. No productive cough or fever. Patient was using nebulizer treatments at home. Received Solu-Medrol magnesium from EMS. Patient still with some difficulty breathing and slight wheezing. Discussed with her primary care doctor who will admit her patient is agreeable to this plan. She has a new oxygen requirement today and will need to stay due to hypoxia. No evidence for pneumonia. Stable at the time of admission. Patient is agreeable to this plan. - Vital Signs Vital signs: Temp Pulse Resp BP Pulse Ox 99.2 F 19 125/64 99 06/25/19 18:37 06/25/19 20:01 06/25/19 20:01 06/25/19 20:01 - Laboratory Result Diagrams: 06/25/19 18:28 06/25/19 18:28 Laboratory results interpreted by me: 06/25/19 06/25/19 18:28 18:28 [place] % (Auto) 13.1 H Eos % (Auto) 6.5 H Sodium 135.5 L Chloride 97 L Discharge - Discharge Clinical Impression: COPD exacerbation, Respiratory distress Condition: Stable Disposition: ADMITTED INPATIENT Admitting Provider: Nanda Unit Admitted: Telemetry Referrals: LISA LUTZ MD [Primary Care Provider] - Follow up as needed I personally performed the services described in the documentation, reviewed and edited the documentation which was dictated to the scribe in my presence, and it accurately records my words and actions.
[2019-06-25 22:09] LABS: APPEARANCE,URINE CLEAR; BILIRUBIN,URINE NEGATIVE (NEGATIVE); COLOR,URINE STRAW; GLUCOSE, URINE NEGATIVE (NEGATIVE); KETONES,URINE NEGATIVE (NEGATIVE); LEUKOCYTE ESTERASE,URINE NEGATIVE (NEGATIVE); NITRITE,URINE NEGATIVE (NEGATIVE); PROTEIN,URINE NEGATIVE (NEGATIVE); URINE SPECIFIC GRAVITY 1.004; UROBILINOGEN,URINE NEGATIVE mg/dL (<2.0)
[2019-06-26] MEDS: METHYLPREDNISOLONE INJ 125 MG/2 ML SDV IV SCH ×3 (07:37→22:18)
[2019-06-26] MEDS: IPRATROPIUM/ALBUTEROL 0.5-2.5 MG/3 ML AMPUL NEB SCH ×4 (08:22→20:55)
[2019-06-26] MEDS: ENOXAPARIN SODIUM INJ 40 MG/0.4 ML DISP.SYRIN SUBCUT SCH (10:36)
[2019-06-26] MEDS: PANTOPRAZOLE SODIUM 40 MG TABLET.DR PO SCH (15:35)
[2019-06-26] MEDS ORDERED: TRAMADOL HCL 50 MG TABLET PO PRN (19:49)
[2019-06-26] MEDS ORDERED: FUROSEMIDE INJ/PF 40 MG/4 ML SDV IV ONE (19:49)
--- NOTE | 2019-06-26 21:01 | PDOC H&P ---
History of Present Illness Admission Date/PCP: 06/25/19 21:48 LISA NELDA Patient complains of: Difficulty with breathing History of Present Illness: HUNG STOCKTON is a 83 year old female patient known to my practice who presented to the ED with complain about worsening difficulty with breathing that start couple of hours prior to her arrival. She reported recent onset of coughing that worsen during the night. She admitted to nasal and sinus congestion for which she was recently treated for. She denied any associated ongoing fever or chills. She admitted to chest tightness but no definite chest pain. She reported significant sputum production with her coughing, mostly cloudy white in color but greenish in the morning. She activated the EMS service due to persistent of difficulty with breathing despite usage of her nebulizer therapy at home. En rou te to the ED EMS personnel did administer IV Solu Medrol ads well as IV Magnesium with some improvement. In the ED despite repeated nebulizer therapy and IV Solu Medrol she continue to demonstrate audible rhonchi and oxygen desaturation with effort. she was advised hospitalization for further evaluation and management. Her morbidities are listed below. She is a former cigarette smoker but quit several years ago. Past Medical History Cardiac Medical History: Reports: Coronary Artery Disease - HIGH CHOLESTEROL, Hypertension, Heart Murmur Denies: Myocardial Infarction Pulmonary Medical History: Reports: Asthma, Bronchitis, Chronic Obstructive Pulmonary Disease (COPD), Pneumonia Denies: Tuberculosis Neurological Medical History: Denies: Seizures Endocrine Medical History: Reports: Hypothyroidism GI Medical History: Reports: Gastroesophageal Reflux Disease Musculoskeltal Medical History: Reports: Arthritis, Other - Senile osteoporosis Psychiatric Medical History: Reports: Dementia, Depression Hematology: Reports: Anemia Past Surgical History Past Surgical History: Reports: Appendectomy, Cholecystectomy, Hysterectomy, Tubal Ligation Denies: Pacemaker Social History Lives with: Family Smoking Status: Former Smoker Number of Years Smokin Frequency of Alcohol Use: None Hx Recreational Drug Use: No Drugs: None Hx Prescription Drug Abuse: No - Advance Directive Resuscitation Status: Full Code Family History Family History: Reviewed & Not Pertinent Parental Family History Reviewed: Yes Children Family History Reviewed: Yes Sibling(s) Family History Reviewed.: Yes Medication/Allergy Home Medications: Benzonatate [Tessalon Perles 100 mg Capsule] 100 mg PO Q8 06/26/19 Furosemide [Lasix 40 mg Tablet] 40 mg PO DAILY 06/26/19 Hydralazine HCl 100 mg PO Q12 06/26/19 Ibandronate Sodium [Boniva] 150 mg PO .QMONTHLY 06/26/19 Ipratropium/Albuterol Sulfate [Combivent Respimat 4 gm Mdi] 1 puff IH Q6HP PRN 06/26/19 Latanoprost [Xalatan 0.005% Oph Soln 2.5 ml] 1 drop OU QHS 06/26/19 Levothyroxine Sodium [Synthroid 0.075 mg Tablet] 0.075 mg PO Q6AM 06/26/19 Losartan Potassium [Cozaar 100 mg Tablet] 100 mg PO DAILY 06/26/19 Montelukast Sodium [Singulair 10 mg Tablet] 10 mg PO QHS 06/26/19 Ranitidine HCl [Zantac] 300 mg PO DAILY 06/26/19 Verapamil HCl [Verapamil ER] 240 mg PO Q12 06/26/19 Allergies/Adverse Reactions: codeine [Codeine] Allergy (Intermediate, Verified 05/15/13:) celecoxib [From Celebrex] Allergy (Unknown, Verified 05/15/13:26) Iodinated Contrast Media [IV Dye, Iodine Containing] Allergy (Verified 05/15/13:) iodine [Iodine] Allergy (Verified 05/15/13:) povidone-iodine [From Betadine] Allergy (Verified 05/15/13:) Soap [From Betadine] Allergy (Verified 05/15/13:26) Review of Systems Constitutional: ABSENT: chills, fever(s), headache(s), weight gain, weight loss Eyes: PRESENT: visual disturbances Ears: PRESENT: hearing changes Nose, Mouth, and Throat: ABSENT: as per HPI, headache(s), mouth pain, sore throat, vertigo, other Cardiovascular: PRESENT: dyspnea on exertion Respiratory: PRESENT: cough, dyspnea, sputum Gastrointestinal: ABSENT: abdominal pain, constipation, diarrhea, hematemesis, hematochezia, nausea, vomiting Genitourinary: ABSENT: dysuria, hematuria Musculoskeletal: ABSENT: joint swelling Integumentary: ABSENT: rash, wounds Neurological: ABSENT: abnormal gait, abnormal speech, confusion, dizziness, focal weakness, syncope Psychiatric: ABSENT: anxiety, depression, homidical ideation, suicidal ideation Endocrine: ABSENT: cold intolerance, heat intolerance, polydipsia, polyuria Hematologic/Lymphatic: ABSENT: easy bleeding, easy bruising, lymphadenopathy Allergic/Immunologic: PRESENT: other - nasal, sinus and chest congestion. ABSENT: seasonal rhinorrhea Physical Exam Vital Signs: Temp Pulse Resp BP Pulse Ox 98.0 F 101 H 16 155/75 H 95 06/26/19 07:19 06/26/19 07:19 06/26/19 07:19 06/26/19 07:19 06/26/19 07:19 Intake & Output 06/25/19 06/26/19 06/27/19 06:59 06:59 06:59 Intake Total 1000 Balance 1000 Weight 64 kg General appearance: PRESENT: mild distress - remain on supplemental oxygen via nasal cannula Head exam: PRESENT: atraumatic, normocephalic Eye exam: PRESENT: conjunctiva pink, EOMI, PERRLA. ABSENT: scleral icterus Ear exam: PRESENT: normal external ear exam Mouth exam: PRESENT: moist Respiratory exam: PRESENT: decreased breath sounds, prolonged expiratory phas, rhonchi, wheezes Cardiovascular exam: PRESENT: RRR. ABSENT: diastolic murmur, rubs, systolic murmur Vascular exam: PRESENT: normal capillary refill. ABSENT: pallor GI/Abdominal exam: PRESENT: normal bowel sounds, soft. ABSENT: distended, guarding, mass, organolmegaly, rebound, tenderness Rectal exam: PRESENT: deferred Musculoskeletal exam: PRESENT: ambulatory Neurological exam: PRESENT: alert, awake, oriented to person, oriented to place, oriented to time, oriented to situation, CN II-XII grossly intact. ABSENT: mot or sensory deficit Psychiatric exam: PRESENT: appropriate affect, normal mood. ABSENT: homicidal ideation, suicidal ideation Skin exam: PRESENT: dry, warm Results Laboratory Results: 06/25/19 18:28 06/25/19 18:28 06/25/19 06/25/19 06/25/19 18:28 18:28 21:35 WBC 7.9 RBC 4.51 Hgb 12.6 Hct 37.7 MCV 84 MCH 28.1 MCHC 33.6 RDW 13.8 Plt Count 342 Seg Neutrophils % 45.6 Sodium 135.5 L Potassium 3.7 Chloride 97 L Carbon Dioxide 23 Anion Gap 16 BUN 11 Creatinine 0.88 Est GFR ( Amer) > 60 Glucose 110 Calcium 9.5 Total Bilirubin 0.8 AST 25 Alkaline Phosphatase 90 Total Protein 6.8 Albumin 4.1 Urine Color STRAW Urine Appearance CLEAR Urine pH 8.0 Ur Specific [place] 1.004 Urine Protein NEGATIVE Urine Glucose (UA) NEGATIVE Urine Ketones NEGATIVE Urine Blood NEGATIVE Urine Nitrite NEGATIVE Ur Leukocyte Esterase NEGATIVE Urine WBC (Auto) 1 Urine RBC (Auto) 1 06/25/19 06/25/19 18:28 18:28 Creatine Kinase 113 CK-MB (CK-2) 1.08 Troponin I < 0.012 Impressions: Chest X-Ray 06/25/19 18:11 IMPRESSION: NO ACUTE FINDINGS. Assessment & Plan - Diagnosis (1) Chronic obstructive pulmonary disease with hypoxia Is this a current diagnosis for this admission?: Yes Plan: See admitting attending physician orders for details about care plan. (2) URTI (infection of the upper respiratory tract) Qualifiers: URI type: unspecified URI Qualified Code(s): J06.9 - Acute upper respiratory infection, unspecified Is this a current diagnosis for this admission?: Yes Plan: See admitting attending physician orders for details about care plan. (3) HTN (hypertension) Qualifiers: Hypertension type: essential hypertension Qualified Code(s): I10 - Essential (primary) hypertension Is this a current diagnosis for this admission?: Yes Plan: See admitting attending physician orders for details about care plan. (5) Hypothyroidism Qualifiers: Hypothyroidism type: unspecified Qualified Code(s): E03.9 - Hypothyroidism, unspecified Is this a current diagnosis for this admission?: Yes Plan: See admitting attending physician orders for details about care plan. (6) GERD (gastroesophageal reflux disease) Qualifiers: Esophagitis presence: esophagitis presence not specified Qualified Code(s): K21.9 - Gastro-esophageal reflux disease without esophagitis Is this a current diagnosis for this admission?: Yes Plan: See admitting attending physician orders for details about care plan. (7) Osteoarthritis involving multiple joints on both sides of body Is this a current diagnosis for this admission?: Yes Plan: See admitting attending physician orders for details about care plan. (8) Depression Qualifiers: Depression Type: unspecified Qualified Code(s): F32.9 - Major depressive disorder, single episode, unspecified Is this a current diagnosis for this admission?: Yes Plan: See admitting attending physician orders for details about care plan. (9) Senile osteoporosis Is this a current diagnosis for this admission?: Yes Plan: See admitting attending physician orders for details about care plan. - Time Time Spent: 50 to 70 Minutes Medications reviewed and adjusted accordingly: Yes Anticipated discharge: Home with Homehealth Within: Other - Inpatient Certification Based on my medical assessment, after consideration of the patient's comorbidities, presenting symptoms, or acuity I expect that the services needed warrant INPATIENT care.: Yes I certify that my determination is in accordance with my understanding of Medicare's requirements for reasonable and necessary INPATIENT services [42 CFR 412.3e].: Yes Medical Necessity: Significant Comorbidiites Make Outpatient Treatment Too Risky, Need Close Monitoring Due to Risk of Patient Decompensation, Need For IV Fluids, Need For Continuous Telemetry Monitoring, Need for Nebulizer Therapy and Monitoring of Response, Need for IV Antibiotics, Risk of Complication if Not Cared For in Hospital, Risk of Diagnosis Which Will Require Inpatient Eval/Care/Monitoring 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
[2019-06-26] MEDS ORDERED: (PENDING PHARMACY ID) (Hydralazine Hcl [Hydralazine Hcl] 100 MG) PO SCH (22:00)
[2019-06-26] MEDS: MONTELUKAST SODIUM 10 MG TABLET PO SCH (22:18)
[2019-06-26] MEDS: HYDRALAZINE HCL 50 MG TABLET PO SCH (22:18)
[2019-06-26] MEDS: BENZONATATE 100 MG CAPSULE PO SCH (22:18)
[2019-06-26] MEDS: VERAPAMIL HCL 240 MG TABLET.SA PO SCH (22:19)
[2019-06-26] MEDS: DOXYCYCLINE HYCLATE 100 MG in DEXTROSE 5%-WATER 250 ML IV SCH (22:21)
[2019-06-27] MEDS: IPRATROPIUM/ALBUTEROL 0.5-2.5 MG/3 ML AMPUL NEB SCH ×6 (00:07→20:21)
[2019-06-27] MEDS: LATANOPROST 0.005% OPH SOLN 2.5 ML OU SCH ×2 (03:18→22:15)
[2019-06-27] MEDS: PANTOPRAZOLE SODIUM 40 MG TABLET.DR PO SCH (05:55)
[2019-06-27] MEDS: BENZONATATE 100 MG CAPSULE PO SCH ×3 (05:55→22:15)
[2019-06-27] MEDS: LEVOTHYROXINE SODIUM 0.075 MG TABLET PO SCH (05:55)
[2019-06-27] MEDS: METHYLPREDNISOLONE INJ 125 MG/2 ML SDV IV SCH ×3 (05:55→22:14)
[2019-06-27 06:02] LABS: HEMATOCRIT 37.5 % (36.0-47.0); HEMOGLOBIN 12.9 g/dL (12.0-15.5); MEAN CORPUSCULAR HEMOGLOBIN 28.5 pg (27.0-33.4); MEAN CORPUSCULAR HGB CONC 34.4 g/dL (32.0-36.0); MEAN CORPUSCULAR VOLUME 83 fl (80-97); PLATELET COUNT 306 10^3/uL (150-450); RED BLOOD COUNT 4.52 10^6/uL (3.72-5.28); RED CELL DISTRIBUTION WIDTH 13.8 % (11.5-14.0); WHITE BLOOD COUNT 12.8 10^3/uL (4.0-10.5)
[2019-06-27 06:18] LABS: ANION GAP 12 (5-19); BLOOD UREA NITROGEN 20 mg/dL (7-20); CALCIUM 9.8 mg/dL (8.4-10.2); CARBON DIOXIDE 25 mmol/L (22-30); CHLORIDE 97 mmol/L (98-107); GLUCOSE 155 mg/dL (75-110); POTASSIUM 3.4 mmol/L (3.6-5.0)
[2019-06-27 06:25] LABS: ABSOLUTE LYMPHOCYTES# (MANUAL) 0.5 10^3/uL (0.5-4.7); ABSOLUTE MONOCYTES # (MANUAL) 0.3 10^3/uL (0.1-1.4); BAND NEUTROPHILS % (MANUAL) 1 % (3-5); BASOPHILS % (MANUAL) 0 % (0-2); EOSINOPHILS % (MANUAL) 0 % (0-6); LYMPHOCYTES % (MANUAL) 4 % (13-45); MONOCYTES % (MANUAL) 2 % (3-13); SEGMENTED NEUTROPHILS % (MAN) 93 % (42-78); TOTAL CELLS COUNTED 100
[2019-06-27 06:27] LABS: BURR CELLS SLIGHT; OVALOCYTES SLIGHT; PLATELET COMMENT ADEQUATE; POIKILOCYTOSIS SLIGHT; TOXIC GRANULATION 1+
[2019-06-27] MEDS: LOSARTAN POTASSIUM 50 MG TABLET PO SCH (11:10)
[2019-06-27] MEDS: FUROSEMIDE 40 MG TABLET PO SCH (11:11)
[2019-06-27] MEDS: HYDRALAZINE HCL 50 MG TABLET PO SCH ×2 (11:11→22:12)
[2019-06-27] MEDS: VERAPAMIL HCL 240 MG TABLET.SA PO SCH ×2 (11:11→22:14)
[2019-06-27] MEDS: DOXYCYCLINE HYCLATE 100 MG in DEXTROSE 5%-WATER 250 ML IV SCH ×2 (11:12→22:15)
[2019-06-27] MEDS: ENOXAPARIN SODIUM INJ 40 MG/0.4 ML DISP.SYRIN SUBCUT SCH (11:13)
--- NOTE | 2019-06-27 19:28 | PDOC PROGRESS REPORT ---
Subjective Progress Note for:: 06/27/19 Subjective:: Patient continue to experience SOB with desaturation, particularly with exertion. No chest pain, palpitation, or leg swelling. No nausea, vomiting, or abdominal pain. Reason For Visit: EXACERBATED COPD WITH HYPOXE Physical Exam Vital Signs: Temp Pulse Resp BP Pulse Ox 98.3 F 85 17 121/49 L 95 06/27/19 16:00 06/27/19 16:00 06/27/19 16:00 06/27/19 16:00 06/27/19 16:00 Intake & Output 06/26/19 06/27/19 06/28/19 06:59 06:59 06:59 Intake Total 1000 1330 1970 Output Total 600 Balance 5069 464 1047 Weight 64 kg 64.7 kg General appearance: PRESENT: mild distress - remain on supplemental oxygen via nasal cannula. Head exam: PRESENT: atraumatic, normocephalic Eye exam: PRESENT: conjunctiva pink. ABSENT: scleral icterus Ear exam: PRESENT: normal external ear exam Mouth exam: PRESENT: moist Respiratory exam: PRESENT: decreased breath sounds, rhonchi - expiratory phase. Cardiovascular exam: PRESENT: RRR, +S1, +S2. ABSENT: diastolic murmur, rubs, systolic murmur Vascular exam: ABSENT: pallor GI/Abdominal exam: PRESENT: normal bowel sounds, soft. ABSENT: distended, guarding, mass, organolmegaly, rebound, tenderness Extremities exam: ABSENT: pedal edema Neurological exam: PRESENT: alert, awake, oriented to person, oriented to place, oriented to time Psychiatric exam: PRESENT: appropriate affect, normal mood. ABSENT: homicidal ideation, suicidal ideation Skin exam: PRESENT: dry, warm Results Laboratory Results: 06/27/19 05:23 06/27/19 05:23 06/27/19 06/27/19 05:23 05:23 WBC 12.8 H RBC 4.52 Hgb 12.9 Hct 37.5 MCV 83 MCH 28.5 MCHC 34.4 RDW 13.8 Plt Count 306 Seg Neutrophils % Not Reportable Sodium 134.1 L Potassium 3.4 L Chloride 97 L Carbon Dioxide 25 Anion Gap 12 BUN 20 Creatinine 1.02 Est GFR ( Amer) > 60 Glucose 155 H Calcium 9.8 06/25/19 06/25/19 18:28 18:28 Creatine Kinase 113 CK-MB (CK-2) 1.08 Troponin I < 0.012 Impressions: Chest X-Ray 06/25/19 18:11 IMPRESSION: NO ACUTE FINDINGS. Assessment & Plan - Diagnosis (1) Chronic obstructive pulmonary disease with hypoxia Is this a current diagnosis for this admission?: Yes (2) URTI (infection of the upper respiratory tract) Qualifiers: URI type: unspecified URI Qualified Code(s): J06.9 - Acute upper respiratory infection, unspecified Is this a current diagnosis for this admission?: Yes (3) HTN (hypertension) Qualifiers: Hypertension type: essential hypertension Qualified Code(s): I10 - Essential (primary) hypertension Is this a current diagnosis for this admission?: Yes (5) Hypothyroidism Qualifiers: Hypothyroidism type: unspecified Qualified Code(s): E03.9 - Hypothyroidism, unspecified Is this a current diagnosis for this admission?: Yes (6) GERD (gastroesophageal reflux disease) Qualifiers: Esophagitis presence: esophagitis presence not specified Qualified Code(s): K21.9 - Gastro-esophageal reflux disease without esophagitis Is this a current diagnosis for this admission?: Yes (7) Osteoarthritis involving multiple joints on both sides of body Is this a current diagnosis for this admission?: Yes (8) Depression Qualifiers: Depression Type: unspecified Qualified Code(s): F32.9 - Major depressive di sorder, single episode, unspecified Is this a current diagnosis for this admission?: Yes (9) Senile osteoporosis Is this a current diagnosis for this admission?: Yes (10) Hypokalemia Is this a current diagnosis for this admission?: Yes Plan: Start on potassium chloride 40 mEq p.o q 4 hours x 2 doses. Obtain serum Mag level. Continue other current medication management. - Time Time Spent with patient: 25-34 minutes Level of Care: IMCU Medications reviewed and adjusted accordingly: Yes Anticipated discharge: Home with Homehealth Within: Other - Inpatient Certification Based on my medical assessment, after consideration of the patient's comorbidities, presenting symptoms, or acuity I expect that the services needed warrant INPATIENT care.: Yes I certify that my determination is in accordance with my understanding of Medicare's requirements for reasonable and necessary INPATIENT services [42 CFR 412.3e].: Yes Medical Necessity: Significant Comorbidiites Make Outpatient Treatment Too Risky, Need Close Monitoring Due to Risk of Patient Decompensation, Need For Continuous Telemetry Monitoring, Need for Nebulizer Therapy and Monitoring of Response, Need for IV Antibiotics, Risk of Complication if Not Cared For in Hospital, Risk of Diagnosis Which Will Require Inpatient Eval/Care/Monitoring 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
[2019-06-27] MEDS ORDERED: ALPRAZOLAM 0.25 MG TABLET PO PRN (19:30)
[2019-06-27] MEDS: POTASSIUM CHLORIDE 20 MEQ PACKET PO SCH ×2 (19:47→22:14)
[2019-06-27] MEDS: MONTELUKAST SODIUM 10 MG TABLET PO SCH (22:14)
[2019-06-28] MEDS: IPRATROPIUM/ALBUTEROL 0.5-2.5 MG/3 ML AMPUL NEB SCH ×6 (00:02→19:47)
[2019-06-28 05:50] LABS: HEMATOCRIT 37.1 % (36.0-47.0); HEMOGLOBIN 12.8 g/dL (12.0-15.5); MEAN CORPUSCULAR HEMOGLOBIN 28.6 pg (27.0-33.4); MEAN CORPUSCULAR HGB CONC 34.6 g/dL (32.0-36.0); MEAN CORPUSCULAR VOLUME 83 fl (80-97); PLATELET COUNT 320 10^3/uL (150-450); RED BLOOD COUNT 4.49 10^6/uL (3.72-5.28); RED CELL DISTRIBUTION WIDTH 13.9 % (11.5-14.0); WHITE BLOOD COUNT 11.4 10^3/uL (4.0-10.5)
[2019-06-28] MEDS: BENZONATATE 100 MG CAPSULE PO SCH ×3 (06:01→21:31)
[2019-06-28] MEDS: METHYLPREDNISOLONE INJ 125 MG/2 ML SDV IV SCH ×3 (06:01→21:30)
[2019-06-28] MEDS: PANTOPRAZOLE SODIUM 40 MG TABLET.DR PO SCH (06:01)
[2019-06-28] MEDS: LEVOTHYROXINE SODIUM 0.075 MG TABLET PO SCH (06:01)
[2019-06-28 06:15] LABS: ABSOLUTE LYMPHOCYTES# (MANUAL) 0.7 10^3/uL (0.5-4.7); ABSOLUTE MONOCYTES # (MANUAL) 0.3 10^3/uL (0.1-1.4); BASOPHILS % (MANUAL) 0 % (0-2); EOSINOPHILS % (MANUAL) 0 % (0-6); LYMPHOCYTES % (MANUAL) 6 % (13-45); MONOCYTES % (MANUAL) 3 % (3-13); SEGMENTED NEUTROPHILS % (MAN) 91 % (42-78); TOTAL CELLS COUNTED 100
[2019-06-28 06:16] LABS: PLATELET COMMENT ADEQUATE; RBC MORPHOLOGY COMMENT NORMO-CYTIC/CHROMIC
[2019-06-28] MEDS: LOSARTAN POTASSIUM 50 MG TABLET PO SCH (09:38)
[2019-06-28] MEDS: HYDRALAZINE HCL 50 MG TABLET PO SCH ×2 (09:38→21:39)
[2019-06-28] MEDS: VERAPAMIL HCL 240 MG TABLET.SA PO SCH ×2 (09:38→21:31)
[2019-06-28] MEDS: FUROSEMIDE 40 MG TABLET PO SCH (09:38)
[2019-06-28] MEDS: ENOXAPARIN SODIUM INJ 40 MG/0.4 ML DISP.SYRIN SUBCUT SCH (09:39)
[2019-06-28] MEDS: DOXYCYCLINE HYCLATE 100 MG in DEXTROSE 5%-WATER 250 ML IV SCH ×2 (09:40→21:30)
--- NOTE | 2019-06-28 11:19 | PDOC PROGRESS REPORT ---
Subjective Progress Note for:: 06/28/19 Subjective:: Patient continue experience non productive cough, exertional dyspnea, and desaturation. No chest pain, palpitation, or leg swelling. Patient reported that she cough more when she lay in bed and she has been in bedside recliner most of the time. No nausea, vomiting, or abdominal pain. Reason For Visit: EXACERBATED COPD WITH HYPOXE Physical Exam Vital Signs: Temp Pulse Resp BP Pulse Ox 97.8 F 86 14 125/57 L 94 06/28/19 07:39 06/28/19 07:59 06/28/19 07:59 06/28/19 07:39 06/28/19 07:59 Intake & Output 06/27/19 06/28/19 06/29/19 06:59 06:59 06:59 Intake Total 1330 3060 Output Total 600 Balance 730 3060 Weight 64.7 kg 64.5 kg Physical Exam: General appearance: PRESENT: mild distress - remain on supplemental oxygen via nasal cannula. Head exam: PRESENT: atraumatic, normocephalic Eye exam: PRESENT: conjunctiva pink. ABSENT: pallor, scleral icterus Ear exam: PRESENT: normal external ear exam Mouth exam: PRESENT: moist Respiratory exam: PRESENT: decreased breath sounds, rhonchi - expiratory phase. Cardiovascular exam: PRESENT: RRR, +S1, +S2. ABSENT: diastolic murmur, rubs, systolic murmur GI/Abdominal exam: PRESENT: normal bowel sounds, soft. ABSENT: distended, guarding, mass, organomegaly, rebound, tenderness Extremities exam: ABSENT: pedal edema Neurological exam: PRESENT: alert, awake, oriented to person, oriented to place, oriented to time Psychiatric exam: PRESENT: appropriate affect, normal mood. ABSENT: homicidal ideation, suicidal ideation Skin exam: PRESENT: dry, warm Results Laboratory Results: 06/28/19 05:04 06/27/19 05:23 06/27/19 06/28/19 05:23 05:04 WBC 11.4 H RBC 4.49 Hgb 12.8 Hct 37.1 MCV 83 MCH 28.6 MCHC 34.6 RDW 13.9 Plt Count 320 Seg Neutrophils % Not Reportable Magnesium 2.1 06/25/19 06/25/19 18:28 18:28 Creatine Kinase 113 CK-MB (CK-2) 1.08 Troponin I < 0.012 Impressions: Chest X-Ray 06/25/19 18:11 IMPRESSION: NO ACUTE FINDINGS. Assessment & Plan - Diagnosis (1) Chronic obstructive pulmonary disease with hypoxia Is this a current diagnosis for this admission?: Yes (2) URTI (infection of the upper respiratory tract) Qualifiers: URI type: unspecified URI Qualified Code(s): J06.9 - Acute upper respiratory infection, unspecified Is this a current diagnosis for this admission?: Yes (3) HTN (hypertension) Qualifiers: Hypertension type: essential hypertension Qualified Code(s): I10 - Essential (primary) hypertension Is this a current diagnosis for this admission?: Yes (5) Hypothyroidism Qualifiers: Hypothyroidism type: unspecified Qualified Code(s): E03.9 - Hypothyroidism, unspecified Is this a current diagnosis for this admission?: Yes (6) GERD (gastroesophageal reflux disease) Qualifiers: Esophagitis presence: esophagitis presence not specified Qualified Code(s): K21.9 - Gastro-esophageal reflux disease without esophagitis Is this a current diagnosis for this admission?: Yes (7) Osteoarthritis involving multiple joints on both sides of body Is this a current diagnosis for this admission?: Yes (8) Depression Qualifiers: Depression Type: unspecified Qualified Code(s): F32.9 - Major depressive disorder, single episode, unspecified Is this a current diagnosis for this admission?: Yes (9) Senile osteoporosis Is this a current diagnosis for this admission?: Yes (10) Hypokalemia Is this a current diagnosis for this admission?: Yes - Time Time Spent with patient: 25-34 minutes Level of Care: IMCU Medications reviewed and adjusted accordingly: Yes Anticipated discharge: Home with Homehealth Within: Other - Inpatient Certification Based on my medical assessment, after consideration of the patient's comorbidities, presenting symptoms, or acuity I expect that the services needed warrant INPATIENT care.: Yes I certify that my determination is in accordance with my understanding of Medicare's requirements for reasonable and necessary INPATIENT services [42 CFR 412.3e].: Yes Medical Necessity: Significant Comorbidiites Make Outpatient Treatment Too Risky, Need Close Monitoring Due to Risk of Patient Decompensation, Need For Continuous Telemetry Monitoring, Need for Nebulizer Therapy and Monitoring of Response, Need for IV Antibiotics, Risk of Complication if Not Cared For in Hospital, Risk of Diagnosis Which Will Require Inpatient Eval/Care/Monitoring 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 Obtain stat echocardiogram for function and structural evaluation in view of her persistent symptoms and history of childhood rheumatic fever with unclear mitral valve disease.
[2019-06-28] MEDS: POTASSIUM CHLORIDE 20 MEQ PACKET PO SCH ×2 (12:41→15:19)
[2019-06-28] MEDS ORDERED: METHYLPREDNISOLONE INJ 40 MG/1 ML SDV IV SCH (14:00)
--- NOTE | 2019-06-28 15:43 | XCELERA REPORT ---
[address] [address] Transthoracic Echocardiogram Report Name: HUNG STOCKTON Age: 83 yrs Gender: Female : 1935 Patient Status: Inpatient Patient Location: [facility]^A Study Date: 06/28/2019 12:14 PM Height: 61 in Weight: 142 lb BSA: 1.6 m2 Procedure: A two-dimensional transthoracic echocardiogram with color flow and Doppler was performed. The study was technically difficult with many images being suboptimal in quality. Reason For Study: Dyspnea, hx rheumatic fever and mitral valve dx History: Other: Dyspnea, hx rheumatic fever and mitral valve dx. Ordering Physician: YAZ^^^MD Performed By: Stanford Acosta Interpretation Summary The left ventricle is normal in size. There is normal left ventricular wall thickness. LV EF is 65% Left ventricular systolic function is normal. Doppler measurements suggest impaired left ventricular relaxation, which is associated with grade I/IV or mild diastolic dysfunction The left ventricular wall motion is normal. There is no thrombus. Probably no ASD , VSD . or PFO seen. The right ventricle is normal in size and function. The right ventricle is not well visualized secondary to technical limitations The right atrium is normal. The left atrial size is normal. There is mild mitral annular calcification. There is no evidence of mitral valve prolapse. There is no vegetation seen on the mitral valve. There is no mitral valve stenosis. There is a moderate amount of mitral regurgitation There is no aortic valvular vegetation. There is aortic sclerosis without aortic stenosis. There is a mild to moderate amount of aortic regurgitation There is no tricuspid stenosis. There is a mild amount of tricuspid regurgitation There is mild pulmonary hypertension by echo RVSP is 36 to 41 mm of Hg , with RA mean of 5 to 10. There is no pulmonic valvular stenosis. There is no pulmonic valvular regurgitation. The aortic root is normal size. The inferior vena cava appeared normal and decreased > 50% with respiration (RAP 5-10 mmHg) There is no pericardial effusion. MMode/2D Measurements & Calculations RVDd: 3.5 cm LVIDd: 5.5 cm FS: 36.8 % Ao root diam: 3.5 cm IVSd: 0.81 cm LVIDs: 3.5 cm EDV(Teich): LVPWd: 0.79 cm 149.0 ml Ao root area: ESV(Teich): 9.8 cm2 50.6 ml LA dimension: EF(Teich): 66.1 % 3.7 cm LVLd ap4: 8.2 cm SV(MOD-sp4): EDV(MOD-sp4): 60.0 ml 110.0 ml LVLs ap4: 7.2 cm ESV(MOD-sp4): 50.0 ml EF(MOD-sp4): 54.5 % Doppler Measurements & Calculations MV E max yasmine: MV P1/2t max yasmine: Ao V2 max: AI max yasmine: 80.9 cm/sec 85.9 cm/sec 151.3 cm/sec 344.8 cm/sec MV A max yasmine: MV P1/2t: 65.7 msec Ao max PG: AI max P.5 mmHg 94.8 cm/sec MVA(P1/2t): 3.3 cm2 9.2 mmHg AI dec slope: MV E/A: 0.85 MV dec slope: 227.3 cm/sec2 AI P1/2t: 444.2 msec 382.9 cm/sec2 MV dec time: 0.24 sec LV V1 max PG: PA V2 max: TR max yasmine: AV P1/2t-pr_phl: 4.7 mmHg 96.3 cm/sec 279.6 cm/sec 444.2 msec LV V1 max: PA max P.7 mmHg TR max P.6 cm/sec 31.3 mmHg MV P1/2t-pr_phl: 65.7 msec Left Ventricle The left ventricle is normal in size. There is normal left ventricular wall thickness. LV EF is 65%. Left ventricular systolic function is normal. Doppler measurements suggest impaired left ventricular relaxation, which is associated with grade I/IV or mild diastolic dysfunction. The left ventricular wall motion is normal. There is no thrombus. Probably no ASD , VSD . or PFO seen. Right Ventricle The right ventricle is normal in size and function. The right ventricle is not well visualized secondary to technical limitations. Atria The right atrium is normal. The left atrial size is normal. Mitral Valve There is mild mitral annular calcification. There is no evidence of mitral valve prolapse. There is no vegetation seen on the mitral valve. There is no mitral valve stenosis. There is a moderate amount of mitral regurgitation. Aortic Valve There is no aortic valvular vegetation. There is aortic sclerosis without aortic stenosis. There is a mild to moderate amount of aortic regurgitation. Tricuspid Valve There is no tricuspid stenosis. There is a mild amount of tricuspid regurgitation. There is mild pulmonary hypertension by echo. RVSP is 36 to 41 mm of Hg , with RA mean of 5 to 10. Pulmonic Valve There is no pulmonic valvular stenosis. There is no pulmonic valvular regurgitation. Great Vessels The aortic root is normal size. The inferior vena cava appeared normal and decreased > 50% with respiration (RAP 5-10 mmHg). Effusions There is no pericardial effusion. : YAZ^^^Polly Baez
[2019-06-28] MEDS: MONTELUKAST SODIUM 10 MG TABLET PO SCH (21:30)
[2019-06-28] MEDS: LATANOPROST 0.005% OPH SOLN 2.5 ML OU SCH (21:31)
[2019-06-29] MEDS: IPRATROPIUM/ALBUTEROL 0.5-2.5 MG/3 ML AMPUL NEB SCH ×7 (00:07→23:59)
[2019-06-29] MEDS: METHYLPREDNISOLONE INJ 125 MG/2 ML SDV IV SCH ×3 (06:31→22:55)
[2019-06-29] MEDS: BENZONATATE 100 MG CAPSULE PO SCH ×3 (06:31→22:55)
[2019-06-29] MEDS: PANTOPRAZOLE SODIUM 40 MG TABLET.DR PO SCH (06:31)
[2019-06-29] MEDS: LEVOTHYROXINE SODIUM 0.075 MG TABLET PO SCH (06:31)
[2019-06-29] MEDS: HYDRALAZINE HCL 50 MG TABLET PO SCH ×2 (09:30→22:55)
[2019-06-29] MEDS: DOXYCYCLINE HYCLATE 100 MG in DEXTROSE 5%-WATER 250 ML IV SCH ×2 (09:30→22:54)
[2019-06-29] MEDS: VERAPAMIL HCL 240 MG TABLET.SA PO SCH ×2 (09:30→22:55)
[2019-06-29] MEDS: POTASSIUM CHLORIDE 10 MEQ TABLET.ER PO SCH (09:30)
[2019-06-29] MEDS: FUROSEMIDE 40 MG TABLET PO SCH (09:31)
[2019-06-29] MEDS: LOSARTAN POTASSIUM 50 MG TABLET PO SCH (09:31)
[2019-06-29] MEDS: ENOXAPARIN SODIUM INJ 40 MG/0.4 ML DISP.SYRIN SUBCUT SCH (09:32)
--- NOTE | 2019-06-29 14:00 | PDOC PROGRESS REPORT ---
Subjective Progress Note for:: 06/29/19 Subjective:: Patient continue experience exertional dyspnea and desaturation with minimal effort, such as walking to her room toilet. No chest pain, palpitation, or leg swelling. Patient reported continue difficulty with laying down on her bed. No nausea, vomiting, or abdominal pain. Reason For Visit: EXACERBATED COPD WITH HYPOXE Physical Exam Vital Signs: Temp Pulse Resp BP Pulse Ox 98.4 F 92 16 124/47 L 95 06/29/19 11:37 06/29/19 12:21 06/29/19 12:21 06/29/19 11:37 06/29/19 12:21 Intake & Output 06/28/19 06/29/19 06/30/19 06:59 06:59 06:59 Intake Total 3060 1220 250 Output Total 1700 Balance 3060 -480 250 Weight 64.5 kg Physical Exam: General appearance: PRESENT: mild distress - remain on supplemental oxygen via nasal cannula. Head exam: PRESENT: atraumatic, normocephalic Eye exam: PRESENT: conjunctiva pink. ABSENT: pallor, scleral icterus Ear exam: PRESENT: normal external ear exam Mouth exam: PRESENT: moist Respiratory exam: PRESENT: decreased breath sounds, minimal end-expiratory phase rhonchi. Cardiovascular exam: PRESENT: RRR, +S1, +S2. ABSENT: diastolic murmur, rubs, systolic murmur GI/Abdominal exam: PRESENT: normal bowel sounds, soft. ABSENT: distended, guarding, mass, organomegaly, rebound, tenderness Extremities exam: ABSENT: pedal edema Neurological exam: PRESENT: alert, awake, oriented to person, oriented to place, oriented to time Psychiatric exam: PRESENT: appropriate affect, normal mood. ABSENT: homicidal ideation, suicidal ideation Skin exam: PRESENT: dry, warm Results Laboratory Results: 06/28/19 05:04 06/27/19 05:23 06/25/19 06/25/19 18:28 18:28 Creatine Kinase 113 CK-MB (CK-2) 1.08 Troponin I < 0.012 Impressions: Chest X-Ray 06/25/19 18:11 IMPRESSION: NO ACUTE FINDINGS. Assessment & Plan - Diagnosis (1) Chronic obstructive pulmonary disease with hypoxia Is this a current diagnosis for this admission?: Yes (2) URTI (infection of the upper respiratory tract) Qualifiers: URI type: unspecified URI Qualified Code(s): J06.9 - Acute upper respiratory infection, unspecified Is this a current diagnosis for this admission?: Yes (3) HTN (hypertension) Qualifiers: Hypertension type: essential hypertension Qualified Code(s): I10 - Essential (primary) hypertension Is this a current diagnosis for this admission?: Yes (5) Hypothyroidism Qualifiers: Hypothyroidism type: unspecified Qualified Code(s): E03.9 - Hypothyroidism, unspecified Is this a current diagnosis for this admission?: Yes (6) GERD (gastroesophageal reflux disease) Qualifiers: Esophagitis presence: esophagitis presence not specified Qualified Code(s): K21.9 - Gastro-esophageal reflux disease without esophagitis Is this a current diagnosis for this admission?: Yes (7) Osteoarthritis involving multiple joints on both sides of body Is this a current diagnosis for this admission?: Yes (8) Depression Qualifiers: Depression Type: unspecified Qualified Code(s): F32.9 - Major depressive disorder, single episode, unspecified Is this a current diagnosis for this admission?: Yes (9) Senile osteoporosis Is this a current diagnosis for this admission?: Yes (10) Hypokalemia Is this a current diagnosis for this admission?: Yes (11) Valvular heart disease Is this a current diagnosis for this admission?: Yes Plan: Her echocardiogram completed on 06/28/2019 did revealed moderate mitral and aortic valves regurgitation. Her LVEF was satisfactory at 65% with grade I/IV mild diastolic dysfunction. I will request cardiology consultation with Dr. Edwards. - Time Time Spent with patient: 35 or more minutes Level of Care: IMCU Medications reviewed and adjusted accordingly: Yes Anticipated discharge: Home with Homehealth Within: Other - Inpatient Certification Based on my medical assessment, after consideration of the patient's comorbidities, presenting symptoms, or acuity I expect that the services needed warrant INPATIENT care.: Yes I certify that my determination is in accordance with my understanding of Medicare's requirements for reasonable and necessary INPATIENT services [42 CFR 412.3e].: Yes Medical Necessity: Significant Comorbidiites Make Outpatient Treatment Too Risky, Need Close Monitoring Due to Risk of Patient Decompensation, Need For Continuous Telemetry Monitoring, Need for Nebulizer Therapy and Monitoring of Response, Risk of Complication if Not Cared For in Hospital, Risk of Diagnosis Which Will Require Inpatient Eval/Care/Monitoring 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 She may benefit from beta sadi but in view of her COPD exacerbation I will seek flat sorting machine clerk input. Obtain BMP.
[2019-06-29 15:06] LABS: ANION GAP 14 (5-19); BLOOD UREA NITROGEN 25 mg/dL (7-20); CALCIUM 9.4 mg/dL (8.4-10.2); CARBON DIOXIDE 23 mmol/L (22-30); CHLORIDE 87 mmol/L (98-107); GLUCOSE 167 mg/dL (75-110); POTASSIUM 4.7 mmol/L (3.6-5.0)
[2019-06-29] MEDS ORDERED: NORMAL SALINE 1000 ML 1,000 ML IV PRN (15:34)
[2019-06-29] MEDS: MONTELUKAST SODIUM 10 MG TABLET PO SCH (22:55)
[2019-06-29] MEDS: LATANOPROST 0.005% OPH SOLN 2.5 ML OU SCH (22:58)
[2019-06-30] MEDS: ALBUTEROL SULFATE HFA (90 MCG/PUFF) 200 PUFF/8.5 GM MDI IH PRN ×2 (02:10→06:08)
[2019-06-30] MEDS: IPRATROPIUM/ALBUTEROL 0.5-2.5 MG/3 ML AMPUL NEB SCH ×5 (04:02→20:31)
[2019-06-30] MEDS: LEVOTHYROXINE SODIUM 0.075 MG TABLET PO SCH (06:07)
[2019-06-30] MEDS: METHYLPREDNISOLONE INJ 125 MG/2 ML SDV IV SCH ×2 (06:07→14:43)
[2019-06-30] MEDS: BENZONATATE 100 MG CAPSULE PO SCH ×3 (06:07→22:09)
[2019-06-30] MEDS: PANTOPRAZOLE SODIUM 40 MG TABLET.DR PO SCH (06:07)
[2019-06-30] MEDS: VERAPAMIL HCL 240 MG TABLET.SA PO SCH ×2 (10:05→22:09)
[2019-06-30] MEDS: FUROSEMIDE 40 MG TABLET PO SCH (10:06)
[2019-06-30] MEDS: DOXYCYCLINE HYCLATE 100 MG in DEXTROSE 5%-WATER 250 ML IV SCH (10:06)
[2019-06-30] MEDS: LOSARTAN POTASSIUM 50 MG TABLET PO SCH (10:06)
[2019-06-30] MEDS: POTASSIUM CHLORIDE 10 MEQ TABLET.ER PO SCH (10:06)
[2019-06-30] MEDS: HYDRALAZINE HCL 50 MG TABLET PO SCH ×2 (10:06→22:09)
[2019-06-30] MEDS: ENOXAPARIN SODIUM INJ 40 MG/0.4 ML DISP.SYRIN SUBCUT SCH (10:07)
[2019-06-30] MEDS ORDERED: NORMAL SALINE 1000 ML 1,000 ML IV PRN (11:25)
--- NOTE | 2019-06-30 18:26 | PDOC PROGRESS REPORT ---
Subjective Progress Note for:: 06/30/19 Subjective:: Patient continue to experience intermittent episodes of coughing. There is continue episodes of exertional difficulty with breathing. No chest pain, palpitation, or leg swelling. No nausea, vomiting, or abdominal pain. Reason For Visit: EXACERBATED COPD WITH HYPOXE Physical Exam Vital Signs: Temp Pulse Resp BP Pulse Ox 98.1 F 88 16 114/43 L 93 06/30/19 11:32 06/30/19 16:31 06/30/19 16:31 06/30/19 15:48 06/30/19 16:31 Intake & Output 06/29/19 06/30/19 07/01/19 06:59 06:59 06:59 Intake Total 1220 1040 1730 Output Total 1700 Balance -480 1040 1730 Physical Exam: General appearance: PRESENT: mild distress - remain on supplemental oxygen via nasal cannula. Head exam: PRESENT: atraumatic, normocephalic Eye exam: PRESENT: conjunctiva pink. ABSENT: pallor, scleral icterus Ear exam: PRESENT: normal external ear exam Mouth exam: PRESENT: moist Respiratory exam: PRESENT: decreased breath sounds, minimal end-expiratory phase rhonchi. Cardiovascular exam: PRESENT: RRR, +S1, +S2. ABSENT: diastolic murmur, rubs, systolic murmur GI/Abdominal exam: PRESENT: normal bowel sounds, soft. ABSENT: distended, guarding, mass, organomegaly, rebound, tenderness Extremities exam: ABSENT: pedal edema Neurological exam: PRESENT: alert, awake, oriented to person, oriented to place, oriented to time Psychiatric exam: PRESENT: appropriate affect, normal mood. ABSENT: homicidal ideation, suicidal ideation Skin exam: PRESENT: dry, warm Results Laboratory Results: 06/28/19 05:04 06/29/19 14:24 06/25/19 06/25/19 18:28 18:28 Creatine Kinase 113 CK-MB (CK-2) 1.08 Troponin I < 0.012 Impressions: Chest X-Ray 06/25/19 18:11 IMPRESSION: NO ACUTE FINDINGS. Assessment & Plan - Diagnosis (1) Chronic obstructive pulmonary disease with hypoxia Is this a current diagnosis for this admission?: Yes (2) URTI (infection of the upper respiratory tract) Qualifiers: URI type: unspecified URI Qualified Code(s): J06.9 - Acute upper respiratory infection, unspecified Is this a current diagnosis for this admission?: Yes (3) HTN (hypertension) Qualifiers: Hypertension type: essential hypertension Qualified Code(s): I10 - Essential (primary) hypertension Is this a current diagnosis for this admission?: Yes (5) Hypothyroidism Qualifiers: Hypothyroidism type: unspecified Qualified Code(s): E03.9 - Hypothyroidism, unspecified Is this a current diagnosis for this admission?: Yes (6) GERD (gastroesophageal reflux disease) Qualifiers: Esophagitis presence: esophagitis presence not specified Qualified Code(s): K21.9 - Gastro-esophageal reflux disease without esophagitis Is this a current diagnosis for this admission?: Yes (7) Osteoarthritis involving multiple joints on both sides of body Is this a current diagnosis for this admission?: Yes (8) Depression Qualifiers: Depression Type: unspecified Qualified Code(s): F32.9 - Major depressive disorder, single episode, unspecified Is this a current diagnosis for this admission?: Yes (9) Senile osteoporosis Is this a current diagnosis for this admission?: Yes (10) Hypokalemia Is this a current diagnosis for this admission?: Yes (11) Valvular heart disease Is this a current diagnosis for this admission?: Yes - Time Time Spent with patient: 25-34 minutes Level of Care: IMCU Medications reviewed and adjusted accordingly: Yes Anticipated discharge: Home Within: Other - Inpatient Certification Based on my medical assessment, after consideration of the patient's comorbidities, presenting symptoms, or acuity I expect that the services needed warrant INPATIENT care.: Yes I certify that my determination is in accordance with my understanding of Medicare's requirements for reasonable and necessary INPATIENT services [42 CFR 412.3e].: Yes Medical Necessity: Significant Comorbidiites Make Outpatient Treatment Too Risky, Need Close Monitoring Due to Risk of Patient Decompensation, Need For IV Fluids, Need For Continuous Telemetry Monitoring, Need for Nebulizer Therapy and Monitoring of Response, Need for IV Antibiotics, Risk of Complication if Not Cared For in Hospital, Risk of Diagnosis Which Will Require Inpatient Eval/Care/Monitoring - Plan Summary Plan Summary: Decrease IV Solu Medrol to 40 mg q 8 hours. Transition to oral Doxycycline thera py. Hold Lasix. Increase IV fluid rate to 100 mL/hour. Continue all other current medication management.
--- NOTE | 2019-06-30 21:39 | PDOC CONSULTATION ---
Consultation-Blank Consultation: CARDIOLOGY CONSULTATION by Dr. Polly Willis on 06/30/2019. Patient seen at 3 PM. 60 minutes spent on this patient more than 50% of time spent in direct patient care. REASON FOR CONSULTATION: Patient with history of rheumatic heart disease with significant valvular regurgitation. Patient also with shortness of breath, and possibly identified cardiac contribution to the patient's existing lung problems causing shortness of breath CONSULT REQUESTING PHYSICIAN: Dr. Vee. HISTORY PRESENT ILLNESS: Patient is a 83-year-old female with known history of significant COPD, hypertension coronary artery disease admitted with acute exacerbation of COPD also and also with cough productive of greenish sputum. She also has orthopnea but no PND or leg edema. She has a history of significant COPD and also her so history of asthma. She has chronic orthopnea which is increased the last few days. She denies any palpitations. She has generalized chest tightness along with wheezing but no clear-cut anginal symptoms. She has a remote history of coronary artery disease but no anginal symptoms in a long time. The patient's echocardiogram shows mild pulmonary hypertension, normal left ventricle ejection fraction, moderate mitral regurgitation, mild to moderate aortic regurgitation. And mild tricuspid regurgitation. The patient has no leg edema. There is no history of arrhythmias or congestive heart failure. There is no syncope. There is no history of TIA CVA symptoms. She has a history of rheumatic heart disease. Past Medical History Cardiac Medical History: Reports: Coronary Artery Disease - HIGH CHOLESTEROL, Hypertension, Heart Murmur Denies: Myocardial Infarction Pulmonary Medical History: Reports: Asthma, Bronchitis, Chronic Obstructive Pulmonary Disease (COPD), Pneumonia Denies: Tuberculosis Neurological Medical History: Denies: Seizures Endocrine Medical History: Reports: Hypothyroidism GI Medical History: Reports: Gastroesophageal Reflux Disease Musculoskeltal Medical History: Reports: Arthritis, Other - Senile osteoporosis Psychiatric Medical History: Reports: Dementia, Depression Hematology: Reports: Anemia Past Surgical History Past Surgical History: Reports: Appendectomy, Cholecystectomy, Hysterectomy, Tubal Ligation Denies: Pacemaker Social History Lives with: Family Smoking Status: Former Smoker Number of Years Smokin Frequency of Alcohol Use: None Hx Recreational Drug Use: No Drugs: None Hx Prescription Drug Abuse: No - Advance Directive Resuscitation Status: Full Code. The patient's daughter is her surrogate healthcare decision maker. Family History Family History: Positive for hypertension. There is no history of coronary artery disease or diabetes mellitus. Medication/Allergy Home Medications: Benzonatate [Tessalon Perles 100 mg Capsule] 100 mg PO Q8 06/26/19 Furosemide [Lasix 40 mg Tablet] 40 mg PO DAILY 06/26/19 Hydralazine HCl 100 mg PO Q12 06/26/19 Ibandronate Sodium [Boniva] 150 mg PO .QMONTHLY 06/26/19 Ipratropium/Albuterol Sulfate [Combivent Respimat 4 gm Mdi] 1 puff IH Q6HP PRN 06/26/19 Latanoprost [Xalatan 0.005% Oph Soln 2.5 ml] 1 drop OU QHS 06/26/19 Levothyroxine Sodium [Synthroid 0.075 mg Tablet] 0.075 mg PO Q6AM 06/26/19 Losartan Potassium [Cozaar 100 mg Tablet] 100 mg PO DAILY 06/26/19 Montelukast Sodium [Singulair 10 mg Tablet] 10 mg PO QHS 06/26/19 Ranitidine HCl [Zantac] 300 mg PO DAILY 06/26/19 Verapamil HCl [Verapamil ER] 240 mg PO Q12 06/26/19 Allergies/Adverse Reactions: codeine [Codeine] Allergy (Intermediate, Verified 05/15/13:26) celecoxib [From Celebrex] Allergy (Unknown, Verified 05/15/13:26) Iodinated Contrast Media [IV Dye, Iodine Containing] Allergy (Verified 05/15/13:26) iodine [Iodine] Allergy (Verified 05/15/13:26) povidone-iodine [From Betadine] Allergy (Verified 05/15/13:26) Soap [From Betadine] Allergy (Verified 05/15/13:26) Review of Systems Constitutional: ABSENT: chills, fever(s), headache(s), weight gain, weight loss Eyes: PRESENT: visual disturbances Ears: PRESENT: hearing changes Nose, Mouth, and Throat: ABSENT: as per HPI, headache(s), mouth pain, sore throat, vertigo, other Cardiovascular: PRESENT: dyspnea on exertion Respiratory: PRESENT: cough, dyspnea, sputum Gastrointestinal: ABSENT: abdominal pain, constipation, diarrhea, hematemesis, hematochezia, nausea, vomiting Genitourinary: ABSENT: dysuria, hematuria Musculoskeletal: ABSENT: joint swelling Integumentary: ABSENT: rash, wounds Neurological: ABSENT: abnormal gait, abnormal speech, confusion, dizziness, focal weakness, syncope Psychiatric: ABSENT: anxiety, depression, homidical ideation, suicidal ideation Endocrine: ABSENT: cold intolerance, heat intolerance, polydipsia, polyuria Hematologic/Lymphatic: ABSENT: easy bleeding, easy bruising, lymphadenopathy Allergic/Immunologic: PRESENT: other - nasal, sinus and chest congestion. ABSENT: seasonal rhinorrhea Current Medications Generic Name Dose Route Start Last Admin Trade Name Freq PRN Reason Stop Dose Admin Albuterol 2 puff 06/26/19 08:17 06/30/19 06:08 Proair Hfa Inhalation Aerosol 8.5 Gm Mdi IH 07/26/19 08:16 2 inhaler Q4HP PRN Administration FOR WHEEZING Albuterol/Ipratropium 3 ml 06/26/19 08:00 06/30/19 20:31 Duoneb 3 Ml Ampul NEB 07/26/19 07:59 3 ml RTQ4 PRIMO Administration Alprazolam 0.25 mg 06/27/19 19:30 06/29/19 22:55 Xanax 0.25 Mg Tablet PO 07/04/19 19:29 0.25 mg HSP PRN Administration ANXIETY Benzonatate 100 mg 06/26/19 22:00 06/30/19 22:09 Tessalon Perles 100 Mg Capsule PO 07/26/19 21:59 100 mg Q8 PRIMO Administration Doxycycline Hyclate 100 mg 06/30/19 22:00 06/30/19 22:10 Vibramycin 100 Mg Tablet PO 07/07/19 21:59 100 mg Q12 PRIMO Administration Enoxaparin Sodium 40 mg 06/26/19 10:00 06/30/19 10:07 Lovenox Inj 40 Mg/0.4 Ml Disp.Syrin SUBCUT 07/26/19 09:59 40 mg DAILY PRIMO Administration Hydralazine HCl 100 mg 06/26/19 22:00 06/30/19 22:09 Apresoline 50 Mg Tablet PO 07/26/19 21:59 100 mg Q12 PRIMO Administration Sodium Chloride 1,000 mls @ 100 mls/hr 06/30/19 11:25 06/30/19 14:00 Nacl 0.9% 1000 Ml Iv Soln IV 07/29/19 15:33 100 mls/hr CONTINUOUS PRN Administration THIS MED IS NOT "PRN" Latanoprost 1 drop 06/26/19 22:00 06/29/19 22:58 Xalatan 0.005% Oph Soln 2.5 Ml OU 07/26/19 21:59 1 drop QHS PRIMO Administration Levothyroxine Sodium 0.075 mg 06/27/19 06:00 06/30/19 06:07 Synthroid 0.075 Mg Tablet PO 07/27/19 05:59 0.075 mg Q6AM PRIMO Administration Losartan Potassium 100 mg 06/27/19 10:00 06/30/19 10:06 Cozaar 50 Mg Tablet PO 07/27/19 09:59 100 mg DAILY PRIMO Administration Methylprednisolone Sodium Succinate 40 mg 06/30/19 22:00 Solu-Medrol Inj/Pf 40 Mg/1 Ml Sdv IV 07/30/19 21:59 Q8 PRIMO Montelukast Sodium 10 mg 06/26/19 22:00 06/30/19 22:09 Singulair 10 Mg Tablet PO 07/26/19 21:59 10 mg QHS PRIMO Administration Pantoprazole Sodium 40 mg 06/26/19 09:30 06/30/19 06:[address] Tablet PO 07/26/19 09:29 40 mg Q6AM PRIMO Administration Patient Own Medication 150 mg 06/26/19 20:00 Ibandronate Sodium [Boniva] PO 07/26/19 19:59 .QMONTHLY [facility] Potassium Chloride 20 meq 06/29/19 10:00 06/30/19 10:06 Klor-Con 10 Meq Capsule Er PO 07/29/19 09:59 20 meq DAILY PRIMO Administration Tramadol HCl 50 mg 06/26/19 19:49 Ultram 50 Mg Tablet PO 07/03/19 19:48 Q8HP PRN FOR PAIN Verapamil HCl 240 mg 06/26/19 22:00 06/30/19 22:09 Calan Sr 240 Mg Tablet.Sa PO 07/26/19 21:59 240 mg Q12 PRIMO Administration Discontinued Medications Generic Name Dose Route Start Last Admin Trade Name Freq PRN Reason Stop Dose Admin Albuterol/Ipratropium 3 ml 06/25/19 20:47 06/25/19 20:53 Duoneb 3 Ml Ampul NEB 06/25/19 20:48 3 ml NOW ONE Administration Doxycycline Hyclate 100 mg 06/25/19 21:42 06/25/19 23:11 Vibramycin 100 Mg Tablet PO 06/25/19 21:43 100 mg NOW ONE Administration Furosemide 40 mg 06/27/19 10:00 06/30/19 10:06 Lasix 40 Mg Tablet PO 07/27/19 09:59 40 mg DAILY PRIMO Administration Furosemide 40 mg 06/26/19 19:49 06/26/19 20:10 Lasix Inj/Pf 40 Mg/4 Ml Sdv IV 06/26/19 19:50 40 mg NOW ONE Administration Sodium Chloride 1,000 mls @ 0 mls/hr 06/25/19 20:15 06/25/19 21:21 Nacl 0.9% 1000 Ml Iv Soln IV 06/25/19 20:16 Infused BOLUS ONE Infusion Wide Open Doxycycline Hyclate 100 mg/ 250 mls @ 125 mls/hr 06/26/19 22:00 06/30/19 12:15 Dextrose IV 07/03/19 21:59 Infused Q12 PRIMO Infusion Sodium Chloride 1,000 mls @ 50 mls/hr 06/29/19 15:34 06/30/19 14:00 Nacl 0.9% 1000 Ml Iv Soln IV 07/29/19 15:33 Infused CONTINUOUS PRN Infusion THIS MED IS NOT "PRN" Methylprednisolone Sodium Succinate 125 mg 06/26/19 07:00 06/28/19 06:01 Solu-Medrol Inj/Pf 125 Mg/2 Ml Sdv IV 07/26/19 14:00 125 mg Q8 PRIMO Administration Methylprednisolone Sodium Succinate 80 mg 06/28/19 14:00 06/30/19 14:43 Solu-Medrol Inj/Pf 125 Mg/2 Ml Sdv IV 07/28/19 13:59 80 mg Q8 PRIMO Administration Potassium Chloride 40 meq 06/27/19 19:30 06/27/19 22:14 Potassium Chloride 20 Meq Packet PO 06/27/19 22:01 40 meq Q4 PRIMO Administration Potassium Chloride 40 meq 06/28/19 11:30 06/28/19 15:19 Potassium Chloride 20 Meq Packet PO 06/28/19 15:31 40 meq Q4H PRIMO Administration PHYSICAL EXAMINATION: The patient is well-built and well-nourished in no acute distress. She is sitting up in the chair she is on nasal oxygen. Selected Entries 06/30/19 15:48 Temperature Oral Source Pulse Rate 86 Respiratory 17 Rate Blood Pressure 114/43 L Blood Pressure 66 Mean BP Location Right Arm BP Position Supine O2 Sat by Pulse 98 Oximetry Oxygen Flow 2.00 Rate Oxygen Delivery Nasal Cannula Method HEAD: Atraumatic normocephalic. EYES: Pupils equal round regular reactive to light and accommodation. Extraocular movements are normal. There is no conjunctival pallor. There is no scleral icterus. EARS: Tympanic membranes are intact. External auditory canals are clear. NOSE: There is no deviated nasal septum. There is no inflammation nasal mucous membrane. MOUTH: Mucous memories of mouth are moist tongue is moist there is no ulcers. THROAT: There is no redness of the oropharynx. There is no exudates. SKIN: There is no skin rashes. There is no petechia or ecchymosis. There is no skin lesions. NECK: Is supple. There is no JVD. There is no accessory muscle respiration use. There is no lymphadenopathy. There is no goiter. Trachea central. LUNGS: There is diminished air entry prolonged expiration throughout. On percussion there is hyperresonance. There is scattered rhonchi and a few end expiratory wheezing. There is no rales of CHF. There is no dry crackles of pneumonia. On percussion there is hyperresonance. On palpation there is no chest wall tenderness. HEART: S1-S2 is heard. There is no S3 gallop. There is no S4 gall op. There is systolic murmur left sternal border and the apex there is no rub there is murmur of moderate mitral regurgitation present heard and the apex to the radiate with radiation to the left axilla. There is also murmur of aortic regurgitation present. There is no peripheral signs of aortic regurgitation. There is no S3 gallop. There is no S4 gallop. There is no rub. ABDOMEN: Is soft. There is no hepatospleno megaly. Bowel sounds are well heard. There is no tender areas masses. EXTREMITIES: Femorals are slightly diminished. There is no femoral bruits. Leg pulses are diminished. There is no pedal edema. There is no DVT or cellulitis. There is no calf tenderness. 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 PSYCHIATRIC: The patient judgment insight are intact her affect is normal. SINUS RHYTHM: SINUS RHYTHM CONSIDER ANTEROSEPTAL INFARCT versus lead placement. NONSPECIFIC T ABNORMALITIES, LATERAL LEADS ECHOCARDIOGRAM: The left ventricle of normal size. There is no wall motion of normality. LV ejection fraction is normal. There is mild to moderate aortic regurgitation present. There is no aortic stenosis. There is moderate mitral regurgitation present. There is mild tricuspid regurgitation with mild pulmonary hypertension right ventricle systolic pressure is 36 to 41 mmHg without a mean of 5-10. Labs- Entire Visit 06/25/19 06/25/19 06/25/19 18:28 18:28 18:28 WBC 7.9 RBC 4.51 Hgb 12.6 Hct 37.7 MCV 84 MCH 28.1 MCHC 33.6 RDW 13.8 Plt Count 342 Lymph % (Auto) 34.0 [place] % (Auto) 13.1 H Eos % (Auto) 6.5 H Baso % (Auto) 0.8 Absolute Neuts (auto) 3.6 Absolute Lymphs (auto) 2.7 Absolute Monos (auto) 1.0 Absolute Eos (auto) 0.5 Absolute Basos (auto) 0.1 Total Counted Seg Neutrophils % 45.6 Seg Neuts % (Manual) Band Neutrophils % Lymphocytes % (Manual) Monocytes % (Manual) Eosinophils % (Manual) Basophils % (Manual) Abs Neuts (Manual) Abs Lymphs (Manual) Abs Monocytes (Manual) Absolute Eos (Manual) Abs Basophils (Manual) Toxic Granulation Platelet Comment Poikilocytosis Ovalocytes Sri Cells RBC Morph Comment Sodium 135.5 L Potassium 3.7 Chloride 97 L Carbon Dioxide 23 Anion Gap 16 BUN 11 Creatinine 0.88 Est GFR ( Amer) > 60 Est GFR (MDRD) Non-Af > 60 Glucose 110 Lactic Acid (Sepsis) Calcium 9.5 Magnesium Total Bilirubin 0.8 Direct Bilirubin 0.3 Neonat Total Bilirubin Not Reportable Neonat Direct Bilirubin Not Reportable Neonat Indirect Bili Not Reportable AST 25 ALT 12 Alkaline Phosphatase 90 Creatine Kinase 113 CK-MB (CK-2) 1.08 Troponin I < 0.012 Total Protein 6.8 Albumin 4.1 Urine Color Urine Appearance Urine pH Ur Specific [place] Urine Protein Urine Glucose (UA) Urine Ketones Urine Blood Urine Nitrite Urine Bilirubin Urine Urobilinogen Ur Leukocyte Esterase Urine WBC (Auto) Urine RBC (Auto) Urine Bacteria (Auto) Squamous Epi Cells Auto Urine Mucus (Auto) Urine Ascorbic Acid 06/25/19 06/25/19 06/25/19 18:52 21:35 22:47 WBC RBC Hgb Hct MCV MCH MCHC RDW Plt Count Lymph % (Auto) [place] % (Auto) Eos % (Auto) Baso % (Auto) Absolute Neuts (auto) Absolute Lymphs (auto) Absolute Monos (auto) Absolute Eos (auto) Absolute Basos (auto) Total Counted Seg Neutrophils % Seg Neuts % (Manual) Band Neutrophils % Lymphocytes % (Manual) Monocytes % (Manual) Eosinophils % (Manual) Basophils % (Manual) Abs Neuts (Manual) Abs Lymphs (Manual) Abs Monocytes (Manual) Absolute Eos (Manual) Abs Basophils (Manual) Toxic Granulation Platelet Comment Poikilocytosis Ovalocytes Sri Cells RBC Morph Comment Sodium Potassium Chloride Carbon Dioxide Anion Gap BUN Creatinine Est GFR ( Amer) Est GFR (MDRD) Non-Af Glucose Lactic Acid (Sepsis) 2.1 1.8 Calcium Magnesium Total Bilirubin Direct Bilirubin Neonat Total Bilirubin Neonat Direct Bilirubin Neonat Indirect Bili AST ALT Alkaline Phosphatase Creatine Kinase CK-MB (CK-2) Troponin I Total Protein Albumin Urine Color STRAW Urine Appearance CLEAR Urine pH 8.0 Ur Specific [place] 1.004 Urine Protein NEGATIVE Urine Glucose (UA) NEGATIVE Urine Ketones NEGATIVE Urine Blood NEGATIVE Urine Nitrite NEGATIVE Urine Bilirubin NEGATIVE Urine Urobilinogen NEGATIVE Ur Leukocyte Esterase NEGATIVE Urine WBC (Auto) 1 Urine RBC (Auto) 1 Urine Bacteria (Auto) TRACE Squamous Epi Cells Auto 1 Urine Mucus (Auto) RARE Urine Ascorbic Acid NEGATIVE 06/27/19 06/27/19 06/27/19 05:23 05:23 05:23 WBC 12.8 H RBC 4.52 Hgb 12.9 Hct 37.5 MCV 83 MCH 28.5 MCHC 34.4 RDW 13.8 Plt Count 306 Lymph % (Auto) Not Reportable [place] % (Auto) Not Reportable Eos % (Auto) Not Reportable Baso % (Auto) Not Reportable Absolute Neuts (auto) Not Reportable Absolute Lymphs (auto) Not Reportable Absolute Monos (auto) Not Reportable Absolute Eos (auto) Not Reportable Absolute Basos (auto) Not Reportable Total Counted 100 Seg Neutrophils % Not Reportable Seg Neuts % (Manual) 93 H Band Neutrophils % 1 L Lymphocytes % (Manual) 4 L Monocytes % (Manual) 2 L Eosinophils % (Manual) 0 Basophils % (Manual) 0 Abs Neuts (Manual) 12.0 H Abs Lymphs (Manual) 0.5 Abs Monocytes (Manual) 0.3 Absolute Eos (Manual) 0.0 Abs Basophils (Manual) 0.0 Toxic Granulation 1+ Platelet Comment ADEQUATE Poikilocytosis SLIGHT Ovalocytes SLIGHT Sri Cells SLIGHT RBC Morph Comment Sodium 134.1 L Potassium 3.4 L Chloride 97 L Carbon Dioxide 25 Anion Gap 12 BUN 20 Creatinine 1.02 Est GFR ( Amer) > 60 Est GFR (MDRD) Non-Af 52 L Glucose 155 H Lactic Acid (Sepsis) Calcium 9.8 Magnesium 2.1 Total Bilirubin Direct Bilirubin Neonat Total Bilirubin Neonat Direct Bilirubin Neonat Indirect Bili AST ALT Alkaline Phosphatase Creatine Kinase CK-MB (CK-2) Troponin I Total Protein Albumin Urine Color Urine Appearance Urine pH Ur Specific [place] Urine Protein Urine Glucose (UA) Urine Ketones Urine Blood Urine Nitrite Urine Bilirubin Urine Urobilinogen Ur Leukocyte Esterase Urine WBC (Auto) Urine RBC (Auto) Urine Bacteria (Auto) Squamous Epi Cells Auto Urine Mucus (Auto) Urine Ascorbic Acid 06/28/19 06/29/19 05:04 14:24 WBC 11.4 H RBC 4.49 Hgb 12.8 Hct 37.1 MCV 83 MCH 28.6 MCHC 34.6 RDW 13.9 Plt Count 320 Lymph % (Auto) Not Reportable [place] % (Auto) Not Reportable Eos % (Auto) Not Reportable Baso % (Auto) Not Reportable Absolute Neuts (auto) Not Reportable Absolute Lymphs (auto) Not Reportable Absolute Monos (auto) Not Reportable Absolute Eos (auto) Not Reportable Absolute Basos (auto) Not Reportable Total Counted 100 Seg Neutrophils % Not Reportable Seg Neuts % (Manual) 91 H Band Neutrophils % Lymphocytes % (Manual) 6 L Monocytes % (Manual) 3 Eosinophils % (Manual) 0 Basophils % (Manual) 0 Abs Neuts (Manual) 10.4 H Abs Lymphs (Manual) 0.7 Abs Monocytes (Manual) 0.3 Absolute Eos (Manual) 0.0 Abs Basophils (Manual) 0.0 Toxic Granulation Platelet Comment ADEQUATE Poikilocytosis Ovalocytes Sri Cells RBC Morph Comment NORMO-CYTIC/CHROMIC Sodium 123.8 L Potassium 4.7 Chloride 87 L Carbon Dioxide 23 Anion Gap 14 BUN 25 H Creatinine 1.26 H Est GFR ( Amer) 49 L Est GFR (MDRD) Non-Af 41 L Glucose 167 H Lactic Acid (Sepsis) Calcium 9.4 Magnesium Total Bilirubin Direct Bilirubin Neonat Total Bilirubin Neonat Direct Bilirubin Neonat Indirect Bili AST ALT Alkaline Phosphatase Creatine Kinase CK-MB (CK-2) Troponin I Total Protein Albumin Urine Color Urine Appearance Urine pH Ur Specific [place] Urine Protein Urine Glucose (UA) Urine Ketones Urine Blood Urine Nitrite Urine Bilirubin Urine Urobilinogen Ur Leukocyte Esterase Urine WBC (Auto) Urine RBC (Auto) Urine Bacteria (Auto) Squamous Epi Cells Auto Urine Mucus (Auto) Urine Ascorbic Acid Chest X-Ray 06/25/19 18:11 IMPRESSION: NO ACUTE FINDINGS. IMPRESSION/RECOMMENDATION: 1. Shortness of breath with orthopnea: This is secondary to acute exacerbation of COPD. There is no definite evidence of congestive heart failure in spite of the valvular disease that the patient has. 2. Acute exacerbation of COPD. Continue current treatment. Including oxygen. 3. Multi valvular regurgitant lesions most likely secondary to rheumatic heart disease. Note the lesions are present and not causing any congestive heart failure. We will continue to treat patient medically. The patient is on verapamil and MONICA inhibitor. Would recommend increasing hydralazine to 100 mg po Q8H for further afterload reduction. 4. History of asthma. Continue bronchodilators. 5. Hypertension: Blood pressure well controlled 6. Coronary artery disease: Appears to be stable. Patient has no anginal symptoms. Recommend adding some nitrates. Medications reviewed. Medication regimen and management plan discussed with Dr. Vee. Discussed with the patient and patient's daughter. Medical decision making is of high complexity. 60 minutes spent on this patient more than 50% of time spent in direct patient care. Will follow
[2019-06-30] MEDS: MONTELUKAST SODIUM 10 MG TABLET PO SCH (22:09)
[2019-06-30] MEDS: DOXYCYCLINE HYCLATE 100 MG TABLET PO SCH (22:10)
[2019-06-30] MEDS: LATANOPROST 0.005% OPH SOLN 2.5 ML OU SCH (23:36)
[2019-06-30] MEDS: METHYLPREDNISOLONE INJ 40 MG/1 ML SDV IV SCH (23:36)
[2019-07-01] MEDS: IPRATROPIUM/ALBUTEROL 0.5-2.5 MG/3 ML AMPUL NEB SCH ×6 (00:33→20:47)
[2019-07-01] MEDS: ALBUTEROL SULFATE HFA (90 MCG/PUFF) 200 PUFF/8.5 GM MDI IH PRN (01:35)
[2019-07-01] MEDS: NITROGLYCERIN 2% OINTMENT 1 GM PACKET TP SCH ×4 (06:13→17:33)
[2019-07-01] MEDS: LEVOTHYROXINE SODIUM 0.075 MG TABLET PO SCH (06:18)
[2019-07-01] MEDS: BENZONATATE 100 MG CAPSULE PO SCH ×3 (06:18→21:27)
[2019-07-01] MEDS: METHYLPREDNISOLONE INJ 40 MG/1 ML SDV IV SCH ×2 (06:18→21:34)
[2019-07-01] MEDS: HYDRALAZINE HCL 50 MG TABLET PO SCH ×3 (06:18→21:24)
[2019-07-01] MEDS: PANTOPRAZOLE SODIUM 40 MG TABLET.DR PO SCH (06:18)
[2019-07-01] MEDS: POTASSIUM CHLORIDE 10 MEQ TABLET.ER PO SCH (09:57)
[2019-07-01] MEDS: VERAPAMIL HCL 240 MG TABLET.SA PO SCH ×2 (09:58→21:25)
[2019-07-01] MEDS: DOXYCYCLINE HYCLATE 100 MG TABLET PO SCH ×2 (09:58→21:27)
[2019-07-01] MEDS: ENOXAPARIN SODIUM INJ 40 MG/0.4 ML DISP.SYRIN SUBCUT SCH (09:58)
[2019-07-01] MEDS: LOSARTAN POTASSIUM 50 MG TABLET PO SCH (09:58)
--- NOTE | 2019-07-01 18:48 | Progress Note ---
Provider Note Provider Note: CARDIOLOGY PROGRESS NOTE by Dr. Polly Willis on 07/01/2019. SUBJECTIVE: The patient remains in sinus rhythm. She has no chest pain or discomfort. She does have chronic orthopnea. But there is no PND. The orthopnea is back to baseline. She states that shortness which is much improved. She is on nasal cannula. There is no TIA CVA symptoms. There is no atrial or ventricular arrhythmia seen. There is no leg edema. PHYSICAL EXAMINATION: The patient is well-built. She is sitting up in a chair in no acute distress she is on nasal O2. Selected Entries 07/01/19 15:13 Temperature 98.1 F Temperature Oral Source Pulse Rate 83 Respiratory 18 Rate Blood Pressure 125/43 L Blood Pressure 70 Mean BP Location Right Arm BP Position Sitting O2 Sat by Pulse 97 Oximetry Oxygen Flow 2.00 Rate Oxygen Delivery Nasal Cannula Method HEAD: Atraumatic normocephalic. EYES: Pupils equal round regular reactive to light and accommodation. Extraocular movements are normal. There is no conjunctival pallor. There is no scleral icterus. EARS: Tympanic membranes are intact. External auditory canals are clear. NOSE: There is no deviated nasal septum. There is no inflammation nasal mucous membrane. MOUTH: Mucous memories of mouth are moist tongue is moist there is no ulcers. THROAT: There is no redness of the oropharynx. There is no exudates. SKIN: There is no skin rashes. There is no petechia or ecchymosis. There is no skin lesions. NECK: Is supple. There is no JVD. There is no accessory muscle respiration use. There is no lymphadenopathy. There is no goiter. Trachea central. LUNGS: There is diminished air entry prolonged expiration throughout. On percussion there is hyperresonance. There is very rare few rhonchi in end expiration, and there is no wheezing. There is no rales of CHF. There is no dry crackles of pneumonia. On percussion there is hyperresonance. On palpation there is no chest wall tenderness. HEART: S1-S2 is heard. There is no S3 gallop. There is no S4 gallop. There is systolic murmur left sternal border and the apex there is no rub there is murmur of moderate mitral regurgitation present heard and the apex to the radiate with radiation to the left axilla. There is also murmur of aortic regurgitation present. There is no peripheral signs of aortic regurgitation. There is no S3 gallop. There is no S4 gallop. There is no rub. ABDOMEN: Is soft. There is no hepatospleno megaly. Bowel sounds are well heard. There is no tender areas masses. EXTREMITIES: Femorals are slightly diminished. There is no femoral bruits. Leg pulses are diminished. There is no pedal edema. There is no DVT or cellulitis. There is no calf tenderness. 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 PSYCHIATRIC: The patient judgment insight are intact her affect is normal. Chest X-Ray 06/25/19 18:11 IMPRESSION: NO ACUTE FINDINGS. IMPRESSION/RECOMMENDATION: 1. Shortness of breath with orthopnea: This is secondary to acute exacerbation of COPD. There is no definite evidence of congestive heart failure in spite of the valvular disease that the patient has. This is much improved. 2. Acute exacerbation of COPD. Continue current treatment. Including oxygen. Seems to be back to baseline. 3. Multi valvular regurgitant lesions most likely secondary to rheumatic heart disease. Note the lesions are present and not causing any congestive heart failure. We will continue to treat patient medically. The patient is on verapamil and MONICA inhibitor. Patient is tolerating hydralazine 100 mg po Q8H . 4. History of asthma. Continue bronchodilators. 5. Hypertension: Blood pressure well controlled. 6. Coronary artery disease: Appears to be stable. Patient has no anginal symptoms. She is tolerating nitrates. We will change her to a topical long- acting once a day topical nitrate. Occasions reviewed. Medication adjusted. Management plan and medical regimen discussed with Dr. Vee. Medical decision making is of high complexity in view of the need to adjust her medications. 40 minutes spent on this patient more than 50% of time spent in direct patient care. Cardiac status is stable. Will sign off and follow the patient as an outpatient.
[2019-07-01] MEDS ORDERED: PREDNISONE 20 MG TABLET PO ONE (19:28)
--- NOTE | 2019-07-01 19:33 | PDOC PROGRESS REPORT ---
Subjective Progress Note for:: 07/01/19 Subjective:: No chest pain, palpitation, or leg swelling. Remain on supplemental oxygen via nasal cannula at 2L/min. Intermittent coughing persist. No nausea, vomiting, or abdominal pain. Reason For Visit: EXACERBATED COPD WITH HYPOXE Physical Exam Vital Signs: Temp Pulse Resp BP Pulse Ox 98.1 F 80 16 125/43 L 96 07/01/19 15:13 07/01/19 17:09 07/01/19 17:09 07/01/19 15:13 07/01/19 17:09 Intake & Output 06/30/19 07/01/19 07/02/19 06:59 06:59 06:59 Intake Total 1040 3420 560 Balance 1040 3420 560 Weight 69.3 kg Physical Exam: General appearance: PRESENT: mild distress - remain on supplemental oxygen via nasal cannula. Head exam: PRESENT: atraumatic, normocephalic Eye exam: PRESENT: conjunctiva pink. ABSENT: pallor, scleral icterus Ear exam: PRESENT: normal external ear exam Mouth exam: PRESENT: moist Respiratory exam: PRESENT: decreased breath sounds, minimal end-expiratory phase rhonchi. Cardiovascular exam: PRESENT: RRR, +S1, +S2. ABSENT: diastolic murmur, rubs, systolic murmur GI/Abdominal exam: PRESENT: normal bowel sounds, soft. ABSENT: distended, guarding, mass, organomegaly, rebound, tenderness Extremities exam: ABSENT: pedal edema Neurological exam: PRESENT: alert, awake, oriented to person, oriented to place, oriented to time Psychiatric exam: PRESENT: appropriate affect, normal mood. ABSENT: homicidal ideation, suicidal ideation Skin exam: PRESENT: dry, warm Results Laboratory Results: 06/28/19 05:04 06/29/19 14:24 06/25/19 06/25/19 18:28 18:28 Creatine Kinase 113 CK-MB (CK-2) 1.08 Troponin I < 0.012 Impressions: Chest X-Ray 06/25/19 18:11 IMPRESSION: NO ACUTE FINDINGS. Assessment & Plan - Diagnosis (1) Chronic obstructive pulmonary disease with hypoxia Is this a current diagnosis for this admission?: Yes (2) URTI (infection of the upper respiratory tract) Qualifiers: URI type: unspecified URI Qualified Code(s): J06.9 - Acute upper respiratory infection, unspecified Is this a current diagnosis for this admission?: Yes (3) HTN (hypertension) Qualifiers: Hypertension type: essential hypertension Qualified Code(s): I10 - Essent ial (primary) hypertension Is this a current diagnosis for this admission?: Yes (5) Hypothyroidism Qualifiers: Hypothyroidism type: unspecified Qualified Code(s): E03.9 - Hypothyroidism, unspecified Is this a current diagnosis for this admission?: Yes (6) GERD (gastroesophageal reflux disease) Qualifiers: Esophagitis presence: esophagitis presence not specified Qualified Code(s): K21.9 - Gastro-esophageal reflux disease without esophagitis Is this a current diagnosis for this admission?: Yes (7) Osteoarthritis involving multiple joints on both sides of body Is this a current diagnosis for this admission?: Yes (8) Depression Qualifiers: Depression Type: unspecified Qualified Code(s): F32.9 - Major depressive disorder, single episode, unspecified Is this a current diagnosis for this admission?: Yes (9) Senile osteoporosis Is this a current diagnosis for this admission?: Yes (10) Hypokalemia Is this a current diagnosis for this admission?: Yes (11) Valvular heart disease Is this a current diagnosis for this admission?: Yes - Time Time Spent with patient: 25-34 minutes Level of Care: IMCU Medications reviewed and adjusted accordingly: Yes Anticipated discharge: Home with Homehealth Within: Other - Inpatient Certification Based on my medical assessment, after consideration of the patient's comorbidities, presenting symptoms, or acuity I expect that the services needed warrant INPATIENT care.: Yes I certify that my determination is in accordance with my understanding of Medicare's requirements for reasonable and necessary INPATIENT services [42 CFR 412.3e].: Yes Medical Necessity: Significant Comorbidiites Make Outpatient Treatment Too Risky, Need Close Monitoring Due to Risk of Patient Decompensation, Need For Continuous Telemetry Monitoring, Need for Nebulizer Therapy and Monitoring of Response, Risk of Complication if Not Cared For in Hospital, Risk of Diagnosis Which Will Require Inpatient Eval/Care/Monitoring Post Hospital 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 Start on oral Prednisone 30 mg po x 1 dose tonight and 20 mg po daily from tomorrow. Maintain on all other current medication management.
[2019-07-01] MEDS: MONTELUKAST SODIUM 10 MG TABLET PO SCH (21:27)
[2019-07-01] MEDS: LATANOPROST 0.005% OPH SOLN 2.5 ML OU SCH (21:28)
[2019-07-02] MEDS: IPRATROPIUM/ALBUTEROL 0.5-2.5 MG/3 ML AMPUL NEB SCH ×5 (00:05→17:35)
[2019-07-02] MEDS: ALBUTEROL SULFATE HFA (90 MCG/PUFF) 200 PUFF/8.5 GM MDI IH PRN ×2 (02:52→13:30)
[2019-07-02] MEDS: HYDRALAZINE HCL 50 MG TABLET PO SCH ×2 (06:14→13:29)
[2019-07-02] MEDS: BENZONATATE 100 MG CAPSULE PO SCH ×2 (06:14→13:29)
[2019-07-02] MEDS: LEVOTHYROXINE SODIUM 0.075 MG TABLET PO SCH (06:14)
[2019-07-02] MEDS: PANTOPRAZOLE SODIUM 40 MG TABLET.DR PO SCH (06:14)
[2019-07-02] MEDS: ENOXAPARIN SODIUM INJ 40 MG/0.4 ML DISP.SYRIN SUBCUT SCH (09:44)
[2019-07-02] MEDS: DOXYCYCLINE HYCLATE 100 MG TABLET PO SCH (09:45)
[2019-07-02] MEDS: VERAPAMIL HCL 240 MG TABLET.SA PO SCH (09:45)
[2019-07-02] MEDS: LOSARTAN POTASSIUM 50 MG TABLET PO SCH (09:45)
[2019-07-02] MEDS: POTASSIUM CHLORIDE 10 MEQ TABLET.ER PO SCH (09:45)
[2019-07-02] MEDS ORDERED: NITROGLYCERIN 10 MG (0.4 MG/HR) PATCH.TD24 TD SCH (10:00)
[2019-07-02 18:08] VITALS: BP 123/52
[2019-07-03] MEDS ORDERED: PREDNISONE 20 MG TABLET PO SCH (10:00)
--- NOTE | 2019-08-26 19:37 | PDOC DISCHARGE SUMMARY ---
Impression - Admit/DC Date/PCP Admission Date/Primary Care Provider: 06/25/19 21:48 LISA LUTZ Discharge Date: 07/02/19 - Discharge Diagnosis (1) Chronic obstructive pulmonary disease with hypoxia Is this a current diagnosis for this admission?: Yes (2) URTI (infection of the upper respiratory tract) Is this a current diagnosis for this admission?: Yes (3) HTN (hypertension) Is this a current diagnosis for this admission?: Yes (5) Hypothyroidism Is this a current diagnosis for this admission?: Yes (6) GERD (gastroesophageal reflux disease) Is this a current diagnosis for this admission?: Yes (7) Osteoarthritis involving multiple joints on both sides of body Is this a current diagnosis for this admission?: Yes (8) Depression Is this a current diagnosis for this admission?: Yes (9) Senile osteoporosis Is this a current diagnosis for this admission?: Yes (10) Hypokalemia Is this a current diagnosis for this admission?: Yes (11) Valvular heart disease Is this a current diagnosis for this admission?: Yes - Assessment Summary: Patient was admitted for exacerbated COPD with URTI. She was managed with IV Doxycycline, IV Solu Medrol and bronchodilators. She was eventually transition oral Doxycycline and Prednisone. She will be discharge home on oral Doxycycline and Prednisone tapering regime. She will follow up in the office as instructed upon discharge. - Additional Information Resuscitation Status: Full Code Discharge Diet: Cardiac Discharge Activity: Activity As Tolerated, Slowly Increase Activity Referrals: LISA LUTZ MD [Primary Care Provider] - 07/09/19 10:00 am Prescriptions: Prednisone 5 mg PO ASDIR PRN #22 tab.ds.pk PRN Reason: Doxycycline Hyclate [Vibramycin 100 mg Tablet] 100 mg PO Q12 #14 tablet Alprazolam [Xanax 0.25 mg Tablet] 0.25 mg PO HSP PRN #30 tablet PRN Reason: Home Medications: Benzonatate [Tessalon Perles 100 mg Capsule] 100 mg PO Q8 06/26/19 Furosemide [Lasix 40 mg Tablet] 40 mg PO DAILY 06/26/19 Hydralazine HCl 100 mg PO Q12 06/26/19 Ibandronate Sodium [Boniva] 150 mg PO .QMONTHLY 06/26/19 Ipratropium/Albuterol Sulfate [Combivent Respimat 4 gm i] 1 puff IH Q6HP PRN 06/26/19 Latanoprost [Xalatan 0.005% Oph Soln 2.5 ml] 1 drop OU QHS 06/26/19 Levothyroxine Sodium [Synthroid 0.075 mg Tablet] 0.075 mg PO Q6AM 06/26/19 Losartan Potassium [Cozaar 100 mg Tablet] 100 mg PO DAILY 06/26/19 Montelukast Sodium [Singulair 10 mg Tablet] 10 mg PO QHS 06/26/19 Ranitidine HCl [Zantac] 300 mg PO DAILY 06/26/19 Verapamil HCl [Verapamil ER] 240 mg PO Q12 06/26/19 Alprazolam [Xanax 0.25 mg Tablet] 0.25 mg PO HSP PRN #30 tablet 07/02/19 Doxycycline Hyclate [Vibramycin 100 mg Tablet] 100 mg PO Q12 #14 tablet 07/02/19 Prednisone 5 mg PO ASDIR PRN #22 tab.ds.pk 07/02/19 History of Present Illiness History of Present Illness: HUNG STOCKTON is a 83 year old female patient known to my practice who presented to the ED with complain about worsening difficulty with breathing that start couple of hours prior to her arrival. She reported recent onset of coughing that worsen during the night. She admitted to nasal and sinus congestion for which she was recently treated for. She denied any associated ongoing fever or chills. She admitted to chest tightness but no definite chest pain. She reported significant sputum production with her coughing, mostly cloudy white in color but greenish in the morning. She activated the EMS service due to persistent of difficulty with breathing despite usage of her nebulizer therapy at home. En route to the ED EMS personnel did administer IV Solu Medrol ads well as IV Magnesium with some improvement. In the ED despite repeated nebulizer therapy and IV Solu Medrol she continue to demonstrate audible rhonchi and exertional oxygen desaturation. she was advised hospitalization for further evaluation and management. Her morbidities are listed below. She is a former cigarette smoker but quit several years ago. Hospital Course Hospital Course: Patient was admitted for exacerbated COPD with URTI. She was managed with IV Doxycycline, IV Solu Medrol and bronchodilators. She was eventually transition oral Doxycycline and Prednisone. She will be discharge home on oral Doxycycline and Prednisone tapering regime. She will follow up in the office as instructed upon discharge. Physical Exam Vital Signs: Temp Pulse Resp BP Pulse Ox 97.6 F 89 16 135/61 H 96 07/02/19 11:42 07/02/19 14:00 07/02/19 11:52 07/02/19 11:42 07/02/19 11:42 Intake & Output 07/01/19 07/02/19 07/03/19 06:59 06:59 06:59 Intake Total 3420 560 Balance 3420 560 Weight 69.3 kg General appearance: PRESENT: no acute distress Head exam: PRESENT: atraumatic, normocephalic Eye exam: PRESENT: conjunctiva pink. ABSENT: pallor, scleral icterus Ear exam: PRESENT: normal external ear exam Mouth exam: PRESENT: moist Respiratory exam: PRESENT: minimal end-expiratory phase rhonchi. Cardiovascular exam: PRESENT: RRR, +S1, +S2. ABSENT: diastolic murmur, rubs, systolic murmur GI/Abdominal exam: PRESENT: normal bowel sounds, soft. ABSENT: distended, gu arding, mass, organomegaly, rebound, tenderness Extremities exam: ABSENT: pedal edema Neurological exam: PRESENT: alert, awake, oriented to person, oriented to place, oriented to time Psychiatric exam: PRESENT: appropriate affect, normal mood. ABSENT: homicidal ideation, suicidal ideation Skin exam: PRESENT: dry, warm Results Laboratory Results: WBC 11.4 10^3/uL (4.0-10.5) H 06/28/19 05:04 RBC 4.49 10^6/uL (3.72-5.28) 06/28/19 05:04 Hgb 12.8 g/dL (12.0-15.5) 06/28/19 05:04 Hct 37.1 % (36.0-47.0) 06/28/19 05:04 MCV 83 fl (80-97) 06/28/19 05:04 MCH 28.6 pg (27.0-33.4) 06/28/19 05:04 MCHC 34.6 g/dL (32.0-36.0) 06/28/19 05:04 RDW 13.9 % (11.5-14.0) 06/28/19 05:04 Plt Count 320 10^3/uL (150-450) 06/28/19 05:04 Lymph % (Auto) Not Reportable 06/28/19 05:04 [place] % (Auto) Not Reportable 06/28/19 05:04 Eos % (Auto) Not Reportable 06/28/19 05:04 Baso % (Auto) Not Reportable 06/28/19 05:04 Absolute Neuts (auto) Not Reportable 06/28/19 05:04 Absolute Lymphs (auto) Not Reportable 06/28/19 05:04 Absolute Monos (auto) Not Reportable 06/28/19 05:04 Absolute Eos (auto) Not Reportable 06/28/19 05:04 Absolute Basos (auto) Not Reportable 06/28/19 05:04 Total Counted 100 06/28/19 05:04 Seg Neutrophils % Not Reportable 06/28/19 05:04 Seg Neuts % (Manual) 91 % (42-78) H 06/28/19 05:04 Band Neutrophils % 1 % (3-5) L 06/27/19 05:23 Lymphocytes % (Manual) 6 % (13-45) L 06/28/19 05:04 Monocytes % (Manual) 3 % (3-13) 06/28/19 05:04 Eosinophils % (Manual) 0 % (0-6) 06/28/19 05:04 Basophils % (Manual) 0 % (0-2) 06/28/19 05:04 Abs Neuts (Manual) 10.4 10^3/uL (1.7-8.2) H 06/28/19 05:04 Abs Lymphs (Manual) 0.7 10^3/uL (0.5-4.7) 06/28/19 05:04 Abs Monocytes (Manual) 0.3 10^3/uL (0.1-1.4) 06/28/19 05:04 Absolute Eos (Manual) 0.0 10^3/uL (0.0-0.6) 06/28/19 05:04 Abs Basophils (Manual) 0.0 10^3/uL (0.0-0.2) 06/28/19 05:04 Toxic Granulation 1+ 06/27/19 05:23 Platelet Comment ADEQUATE 06/28/19 05:04 Poikilocytosis SLIGHT 06/27/19 05:23 Ovalocytes SLIGHT 06/27/19 05:23 [place] Cells SLIGHT 06/27/19 05:23 RBC Morph Comment NORMO-CYTIC/CHROMIC 06/28/19 05:04 Sodium 123.8 mmol/L (137-145) L 06/29/19 14:24 Potassium 4.7 mmol/L (3.6-5.0) 06/29/19 14:24 Chloride 87 mmol/L (98-107) L 06/29/19 14:24 Carbon Dioxide 23 mmol/L (22-30) 06/29/19 14:24 Anion Gap 14 (5-19) 06/29/19 14:24 BUN 25 mg/dL (7-20) H 06/29/19 14:24 Creatinine 1.26 mg/dL (0.52-1.25) H 06/29/19 14:24 Est GFR ( Amer) 49 (>60) L 06/29/19 14:24 Est GFR (MDRD) Non-Af 41 (>60) L 06/29/19 14:24 Glucose 167 mg/dL (75-110) H 06/29/19 14:24 Lactic Acid (Sepsis) 1.8 mmol/L (0.7-2.1) 06/25/19 22:47 Calcium 9.4 mg/dL (8.4-10.2) 06/29/19 14:24 Magnesium 2.1 mg/dL (1.6-2.3) 06/27/19 05:23 Total Bilirubin 0.8 mg/dL (0.2-1.3) 06/25/19 18:28 Direct Bilirubin 0.3 mg/dL (0.0-0.4) 06/25/19 18:28 Neonat Total Bilirubin Not Reportable 06/25/19 18:28 Neonat Direct Bilirubin Not Reportable 06/25/19 18:28 Neonat Indirect Bili Not Reportable 06/25/19 18:28 AST 25 U/L (14-36) 06/25/19 18:28 ALT 12 U/L (<35) 06/25/19 18:28 Alkaline Phosphatase 90 U/L (38-126) 06/25/19 18:28 Creatine Kinase 113 U/L (30-135) 06/25/19 18:28 CK-MB (CK-2) 1.08 ng/mL (<4.55) 06/25/19 18:28 Troponin I < 0.012 ng/mL 06/25/19 18:28 Total Protein 6.8 g/dL (6.3-8.2) 06/25/19 18:28 Albumin 4.1 g/dL (3.5-5.0) 06/25/19 18:28 Urine Color STRAW 06/25/19 21:35 Urine Appearance CLEAR 06/25/19 21:35 Urine pH 8.0 (5.0-9.0) 06/25/19 21:35 Ur Specific [place] 1.004 06/25/19 21:35 Urine Protein NEGATIVE mg/dL (NEGATIVE) 06/25/19 21:35 Urine Glucose (UA) NEGATIVE mg/dL (NEGATIVE) 06/25/19 21:35 Urine Ketones NEGATIVE mg/dL (NEGATIVE) 06/25/19 21:35 Urine Blood NEGATIVE (NEGATIVE) 06/25/19 21:35 Urine Nitrite NEGATIVE (NEGATIVE) 06/25/19 21:35 Urine Bilirubin NEGATIVE (NEGATIVE) 06/25/19 21:35 Urine Urobilinogen NEGATIVE mg/dL (<2.0) 06/25/19 21:35 Ur Leukocyte Esterase NEGATIVE (NEGATIVE) 06/25/19 21:35 Urine WBC (Auto) 1 /HPF 06/25/19 21:35 Urine RBC (Auto) 1 /HPF 06/25/19 21:35 Urine Bacteria (Auto) TRACE /HPF 06/25/19 21:35 Squamous Epi Cells Auto 1 /HPF 06/25/19 21:35 Urine Mucus (Auto) RARE /LPF 06/25/19 21:35 Urine Ascorbic Acid NEGATIVE (NEGATIVE) 06/25/19 21:35 06/25/19 18:28 CK-MB (CK-2) 1.08 Troponin I < 0.012 Impressions: Chest X-Ray 06/25/19 18:11 IMPRESSION: NO ACUTE FINDINGS. Plan Health Concerns: High risk of readmission. Plan of Treatment: Maintain on maintenance medication and close follow up plan. Goals: Reduce readmission risk level. Time Spent: Greater than 30 Minutes - I had extensive discussion about her post acute care treatment and follow up plan Stroke Is this a Stroke Patient?: No Acute Heart Failure - Is this a Heart Failure Patient?: No
== END 2019-07-02 18:30 | disposition home health service (06) | DRG 192 ==
LOC: ER 18:05 → EH 21:48 → 3N 06-26 01:08 → 3S 06-29 17:40
PROVIDERS: ADMIT Internal Medicine Geriatric Medicine; ATTEND Internal Medicine Geriatric Medicine
DX: J44.1 Chronic obstructive pulmonary disease with (acute) exacerbation (principal); I10 Essential (primary) hypertension; I25.10 Atherosclerotic heart disease of native coronary artery without angina pectoris; E03.9 Hypothyroidism, unspecified; K21.9 Gastro-esophageal reflux disease without esophagitis; M81.0 Age-related osteoporosis without current pathological fracture; F32.9 Major depressive disorder, single episode, unspecified; F03.90 Unspecified dementia, unspecified severity, without behavioral disturbance, psychotic disturbance, mood disturbance, and anxiety; I08.0 Rheumatic disorders of both mitral and aortic valves; M15.3 Secondary multiple arthritis; E87.6 Hypokalemia; J06.9 Acute upper respiratory infection, unspecified; Z87.891 Personal history of nicotine dependence; Z79.899 Other long term (current) drug therapy; Z79.890 Hormone replacement therapy; Z88.8 Allergy status to other drugs, medicaments and biological substances; Z91.041 Radiographic dye allergy status; Z82.49 Family history of ischemic heart disease and other diseases of the circulatory system
CPT/HCPCS: 36415; 71045; 80048; 80053; 81001; 82550; 82553; 83605; 83735; 84484; 85025; 93005; 93010; 93306; 94640; 96360; 99285; J1650; J1940; J2920; J2930; J3490; J7030; J7060; J7512; J7620

== ENCOUNTER 2020-06-22 11:25 | Emergency (ER) | payer MEDICARE, OTHER ==
--- NOTE | 2020-06-22 12:03 | ER Document Report ---
ED Medical Screen (RME) - General Stated Complaint: DIFFICULTY BREATHING Time Seen by Provider: 06/22/20 11:53 Primary Care Provider: LISA LUTZ MD [Primary Care Provider] - Follow up as needed TRAVEL OUTSIDE OF THE [place] IN LAST 30 DAYS: No - HPI Notes: 06/22/20 12:08 84-year-old female with a history of asthma and COPD presents to the emergency room today for feeling like she is having shortness of breath that started around 10:00 this morning. Patient is supposed to be wearing oxygen but does not. Denies any chest pain. Patient is 99% on room air. She is unsure if she is having a anxiety attack or she is just feeling short of breath. Denies any recent flights, long periods of immobilization, surgery, not undergoing any treatment for cancer. Her daughter picked her up at 10:00 and noticed that she was having some shortness of breath. I have greeted and performed a rapid initial assessment of this patient. A comprehensive ED assessment and evaluation of the patient, analysis of test results and completion of the medical decision making process will be conducted by additional ED providers. PHYSICAL EXAMINATION: GENERAL: Well-appearing, well-nourished and in no acute distress. HEAD: Atraumatic, normocephalic. EYES: Pupils equal round extraocular movements intact, conjunctiva are normal. NECK: Normal range of motion CV: s1, s2 regular LUNGS: No respiratory distress - Related Data Allergies/Adverse Reactions: codeine [Codeine] Allergy (Intermediate, Verified 05/15/13:) celecoxib [From Celebrex] Allergy (Unknown, Verified 05/15/13) Iodinated Contrast Media [IV Dye, Iodine Containing] Allergy (Verified 05/15/13) iodine [Iodine] Allergy (Verified 05/15/13:) povidone-iodine [From Betadine] Allergy (Verified 05/15/13) Soap [From Betadine] Allergy (Verified 05/15/13) Past Medical History - Past Medical History Cardiac Medical History: Reports: Hx Coronary Artery Disease - HIGH CHOLESTEROL, Hx Hypertension, Hx Heart Murmur Denies: Hx Heart Attack Pulmonary Medical History: Reports: Hx Asthma, Hx Bronchitis, Hx COPD, Hx Pneumonia Denies: Hx Tuberculosis Neurological Medical History: Denies: Hx Cerebrovascular Accident, Hx Seizures Endocrine Medical History: Reports: Hx Hypothyroidism Renal/ Medical History: Reports: Hx Kidney Stones, Hx Ovarian Cysts GI Medical History: Reports: Hx Gastroesophageal Reflux Disease Musculoskeltal Medical History: Reports Hx Arthritis Psychiatric Medical History: Reports: Hx Dementia, Hx Depression Traumatic Medical History: Reports: Hx Fractures - foot, tailbone, ribs Past Surgical History: Reports: Hx Appendectomy, Hx Cholecystectomy, Hx Hysterectomy, Hx Tubal Ligation. Denies: Hx Pacemaker - Immunizations Hx Diphtheria, Pertussis, Tetanus Vaccination: No Physical Exam - Vital signs Vitals: Temp Pulse Resp BP Pulse Ox 98.4 F 108 H 22 H 117/97 H 100 06/22/20 12:06 06/22/20 12:06 06/22/20 12:06 06/22/20 12:06 06/22/20 12:06 Course - Vital Signs Vital signs: Temp Pulse Resp BP Pulse Ox 98.4 F 108 H 22 H 117/97 H 100 06/22/20 12:06 06/22/20 12:06 06/22/20 12:06 06/22/20 12:06 06/22/20 12:06 Doctor's Discharge - Discharge Referrals: LISA LUTZ MD [Primary Care Provider] - Follow up as needed
[2020-06-22 13:14] LABS: ABSOLUTE BASOPHILS # (AUTO) 0.1 10^3/uL (0.0-0.2); ABSOLUTE EOSINOPHILS # (AUTO) 0.1 10^3/uL (0.0-0.6); ABSOLUTE LYMPHOCYTES (AUTO) 1.6 10^3/uL (0.5-4.7); ABSOLUTE MONOCYTES (AUTO) 0.7 10^3/uL (0.1-1.4); ABSOLUTE NEUT (AUTO) 5.5 10^3/uL (1.7-8.2); EOSINOPHILS % (AUTO) 1.7 % (0-6); HEMATOCRIT 41.3 % (36.0-47.0); LYMPHOCYTES % (AUTO) 19.8 % (13-45); MEAN CORPUSCULAR HEMOGLOBIN 27.8 pg (27.0-33.4); MEAN CORPUSCULAR HGB CONC 33.9 g/dL (32.0-36.0); MEAN CORPUSCULAR VOLUME 82 fl (80-97); MONOCYTES % (AUTO) 9.1 % (3-13); PLATELET COUNT 317 10^3/uL (150-450); RED BLOOD COUNT 5.04 10^6/uL (3.72-5.28); RED CELL DISTRIBUTION WIDTH 14.5 % (11.5-14.0); SEGMENTED NEUTROPHILS % (AUTO) 68.4 % (42-78); TOTAL CELLS COUNTED % (AUTO) 100 %; WHITE BLOOD COUNT 8.1 10^3/uL (4.0-10.5)
[2020-06-22 13:20] LABS: APPEARANCE,URINE CLEAR; BILIRUBIN,URINE NEGATIVE (NEGATIVE); COLOR,URINE YELLOW; GLUCOSE, URINE NEGATIVE (NEGATIVE); KETONES,URINE TRACE mg/dL (NEGATIVE); LEUKOCYTE ESTERASE,URINE LARGE (NEGATIVE); NITRITE,URINE NEGATIVE (NEGATIVE); PROTEIN,URINE NEGATIVE (NEGATIVE); URINE SPECIFIC GRAVITY 1.003; UROBILINOGEN,URINE NEGATIVE mg/dL (<2.0)
[2020-06-22 13:34] LABS: ALBUMIN 4.4 g/dL (3.5-5.0); ALKALINE PHOSPHATASE 94 U/L (38-126); ANION GAP 15 (5-19); ASPARTATE AMINO TRANSFERASE 20 U/L (14-36); BILIRUBIN,DIRECT 0.1 mg/dL (0.0-0.4); BILIRUBIN,TOTAL 0.7 mg/dL (0.2-1.3); BLOOD UREA NITROGEN 11 mg/dL (7-20); CALCIUM 9.7 mg/dL (8.4-10.2); CARBON DIOXIDE 22 mmol/L (22-30); CHLORIDE 95 mmol/L (98-107); GLUCOSE 98 mg/dL (75-110); POTASSIUM 4.2 mmol/L (3.6-5.0)
--- NOTE | 2020-06-22 17:32 | RADIOLOGY REPORT (SQ) ---
EXAM DESCRIPTION: CHEST SINGLE VIEW IMAGES COMPLETED DATE/TIME: 06/22/2020 1:47 pm REASON FOR STUDY: sob COMPARISON: 06/25/2019 and 01/30/2017. NUMBER OF VIEWS: One view. TECHNIQUE: Single frontal radiographic view of the chest acquired. LIMITATIONS: None. FINDINGS: LUNGS AND PLEURA: No opacities, masses or pneumothorax. No pleural effusion. Attenuated bl ood vessels and flattened bev-diaphragms. MEDIASTINUM AND HILAR STRUCTURES: Chronic prominence of the pulmonary arteries. HEART AND VASCULAR STRUCTURES: Heart normal in size. Normal vasculature. BONES: No acute findings. HARDWARE: None in the chest. OTHER: No other significant finding. IMPRESSION: COPD. NO ACUTE RADIOGRAPHIC FINDING IN THE CHEST. TECHNICAL DOCUMENTATION: JOB ID: [id number] [employer]- All Rights Reserved Reading location - IP/workstation name: [email or web address]
--- NOTE | 2020-06-22 17:46 | ER Document Report ---
ED Respiratory Problem - General Chief Complaint: Shortness Of Breath Stated Complaint: DIFFICULTY BREATHING Time Seen by Provider: 06/22/20 11:53 Primary Care Provider: LISA LUTZ MD [Primary Care Provider] - Follow up as needed Information source: Patient Notes: 06/22/20 12:10 - Nursing Note by TASNEEM BROWN Accanushka Num: [id number] : 1935 Patient Age: 84 Pt arrives with her daughter at her side. Pt is confused, asking multiple times where she is and what is causing her s/s. Pt states that she is having difficulty breathing, she states that she believes this is caused by copd. Daughter states that she is picked her mother up at 1000 am to take her to the eye doctor, and her mother kept stating she was sob, daughter states she doesn't appear to be but does report that her mother has had tremors which is new. Daughter also states mother has had nausea for a month, but she believe that she is taking her medications on an empty stomach. Pt has e/u respirations. Initialized on 06/22/20 12:10 - END OF NOTE ED Medical Screen ([place]) - General Stated Complaint: DIFFICULTY BREATHING Time Seen by Provider: 06/22/20 11:53 Primary Care Provider: LISA LUTZ MD [Primary Care Provider] - Follow up as needed TRAVEL OUTSIDE OF THE [place] IN LAST 30 DAYS: No - HPI Notes: 06/22/20 12:08 84-year-old female with a history of asthma and COPD presents to the emergency room today for feeling like she is having shortness of breath that started around 10:00 this morning. Patient is supposed to be wearing oxygen but does not. Denies any chest pain. Patient is 99% on room air. She is unsure if she is having a anxiety attack or she is just feeling short of breath. Denies any recent flights, long periods of immobilization, surgery, not undergoing any treatment for cancer. Her daughter picked her up at 10:00 and noticed that she was having some shortness of breath. I have greeted and performed a rapid initial assessment of this patient. A comprehensive ED assessment and evaluation of the patient, analysis of test results and completion of the medical decision making process will be conducted by additional ED providers. PHYSICAL EXAMINATION: GENERAL: Well-appearing, well-nourished and in no acute distress. HEAD: Atraumatic, normocephalic. EYES: Pupils equal round extraocular movements intact, conjunctiva are normal. NECK: Normal range of motion CV: s1, s2 regular LUNGS: No respiratory distress MY NOTES 84-year-old female arrives with her daughter with chief complaint of having shortness of breath that started around 10 AM. Patient has history of RAD and COPD. Her chest x-ray today is within normal limits as are her labs except for her urinalysis which shows a UTI. Patient is quite anxious in room 21 with her daughter. Her daughter reports she picked her up from her house where the patient has a history of vascular dementia and was quite anxious complaining of right upper back pain and shortness of breath. She is satting 99% on room air but reports she just cannot breathe very well. Patient went to her new eye doctor appointment and then traveled to her [facility] Dr. Michelle. She then came to the ER. TRAVEL OUTSIDE OF THE [place] IN LAST 30 DAYS: No - Related Data Allergies/Adverse Reactions: codeine [Codeine] Allergy (Intermediate, Verified 05/15/13:26) celecoxib [From Celebrex] Allergy (Unknown, Verified 05/15/13:26) Iodinated Contrast Media [IV Dye, Iodine Containing] Allergy (Verified 05/15/13) iodine [Iodine] Allergy (Verified 05/15/13:26) povidone-iodine [From Betadine] Allergy (Verified 05/15/13:) Soap [From Betadine] Allergy (Verified 05/15/13:26) Past Medical History - General Information source: Patient, Relative - daughter order Cannot obtain history due to: Dementia - Social History Smoking Status: Unknown if Ever Smoked Cigarette use (# per day): No Chew tobacco use (# tins/day): No Smoking Education Provided: No Frequency of alcohol use: None Drug Abuse: None Lives with: Family Family History: Reviewed & Not Pertinent Patient has suicidal ideation: No Patient has homicidal ideation: No - Past Medical History Cardiac Medical History: Reports: Hx Coronary Artery Disease - HIGH CHOLESTEROL, Hx Hypertension, Hx Heart Murmur Denies: Hx Heart Attack Pulmonary Medical History: Reports: Hx Asthma, Hx Bronchitis, Hx COPD, Hx Pneumonia Denies: Hx Tuberculosis Neurological Medical History: Denies: Hx Cerebrovascular Accident, Hx Seizures Endocrine Medical History: Reports: Hx Hypothyroidism Renal/ Medical History: Reports: Hx Kidney Stones, Hx Ovarian Cysts GI Medical History: Reports: Hx Gastroesophageal Reflux Disease Musculoskeletal Medical History: Reports Hx Arthritis Psychiatric Medical History: Reports: Hx Dementia, Hx Depression Traumatic Medical History: Reports: Hx Fractures - foot, tailbone, ribs Past Surgical History: Reports: Hx Appendectomy, Hx Cholecystectomy, Hx Hysterectomy, Hx Tubal Ligation. Denies: Hx Pacemaker - Immunizations Hx Diphtheria, Pertussis, Tetanus Vaccination: No Hx Pneumococcal Vaccination: 05/06/11 Review of Systems - Review of Systems Constitutional: No symptoms reported EENT: No symptoms reported Cardiovascular: No symptoms reported Respiratory: See HPI, Hurts to breathe, Short of breath Gastrointestinal: No symptoms reported Genitourinary: No symptoms reported Female Genitourinary: No symptoms reported Musculoskeletal: No symptoms reported Skin: No symptoms reported Hematologic/Lymphatic: No symptoms reported Neurological/Psychological: No symptoms reported Physical Exam - Vital signs Vitals: Temp Pulse Resp BP Pulse Ox 98.4 F 108 H 22 H 117/97 H 100 06/22/20 12:06 06/22/20 12:06 06/22/20 12:06 06/22/20 12:06 06/22/20 12:06 Interpretation: Normal - General General appearance: Appears well, Alert - HEENT Head: Normocephalic, Atraumatic Eyes: Normal Pupils: PERRL - Respiratory Respiratory status: No respiratory distress Chest status: Nontender Breath sounds: Normal Chest palpation: Normal - Cardiovascular Rhythm: Regular Heart sounds: Normal auscultation Murmur: No - Abdominal Inspection: Normal Distension: No distension Bowel sounds: Normal Tenderness: Nontender Organomegaly: No organomegaly - Rectal Hemorrhoids: Other - deferred - Genitourinary Bimanuel exam: Other - deferred - Back Back: Normal, Nontender - Extremities General upper extremity: Normal inspection, Nontender, Normal color, Normal ROM, Normal temperature General lower extremity: Normal inspection, Nontender, Normal color, Normal ROM, Normal temperature, Normal weight bearing. No: Alexis's sign - Neurological Neuro grossly intact: Yes Cognition: Normal Orientation: AAOx4 [place] Coma Scale Eye Opening: Spontaneous [place] Coma Scale Verbal: Oriented [place] Coma Scale Motor: Obeys Commands [place] Coma Scale Total: 15 Speech: Normal Motor strength normal: LUE, RUE, LLE, RLE Sensory: Normal - Psychological Associated symptoms: Normal affect, Normal mood - Skin Skin Temperature: Warm Skin Moisture: Dry Skin Color: Normal Course - Vital Signs Vital signs: Temp Pulse Resp BP Pulse Ox 98.0 F 108 H 21 H 146/78 H 96 06/22/20 19:55 06/22/20 12:06 06/22/20 19:55 06/22/20 19:55 06/22/20 19:55 - Laboratory Result Diagrams: 06/22/20 12:27 06/22/20 12:27 Laboratory results interpreted by me: 06/22/20 06/22/20 06/22/20 12:27 12:27 12:27 RDW 14.5 H Sodium 131.9 L Chloride 95 L Urine Ketones TRACE H Ur Leukocyte Esterase LARGE H Discharge - Discharge Clinical Impression: UTI (urinary tract infection) Qualifiers: Urinary tract infection type: acute cystitis Hematuria presence: with hematuria Qualified Code(s): N30.01 - Acute cystitis with hematuria Right-sided thoracic back pain Qualifiers: Chronicity: acute Qualified Code(s): M54.6 - Pain in thoracic spine COPD (chronic obstructive pulmonary disease) Qualifiers: COPD type: COPD with acute exacerbation Qualified Code(s): J44.1 - Chronic obstructive pulmonary disease with (acute) exacerbation Condition: Good Disposition: HOME, SELF-CARE Instructions: Urinary Tract Infection ([facility]) Additional Instructions: Follow-up with personal doctor; return to ER as needed; take medicines as directed; encourage fluids; Prescriptions: Ciprofloxacin HCl [Cipro 500 mg Tablet] 500 mg PO BID #20 tablet Referrals: LISA LUTZ MD [Primary Care Provider] - Follow up as needed
[2020-06-22] MEDS ORDERED: KETAMINE HCL INJ 500 MG/10 ML VIAL IV ONE (17:56)
[2020-06-22] MEDS ORDERED: LORAZEPAM INJ 2 MG/1 ML VIAL IV ONE (17:56)
[2020-06-22] MEDS ORDERED: IPRATROPIUM/ALBUTEROL 0.5-2.5 MG/3 ML AMPUL NEB ONE (18:13)
[2020-06-22] MEDS ORDERED: CEFTRIAXONE INJ 1000 MG VIAL IV ONE (18:21)
[2020-06-22] MEDS ORDERED: AZITHROMYCIN INJ 500 MG VIAL IV ONE (18:22)
--- NOTE | 2020-06-22 18:32 | RADIOLOGY REPORT (SQ) ---
EXAM DESCRIPTION: CT CHEST WITHOUT IMAGES COMPLETED DATE/TIME: 06/22/2020 6:14 pm REASON FOR STUDY: right upper back pain sob COMPARISON: 01/19/2010 TECHNIQUE: CT scan performed of the chest without intravenous contrast. Images reviewed with lung, soft tissue and bone windows. Reconstructed coronal and sagittal MPR images reviewed. All images st ored on PACS. All CT scanners at this facility use dose modulation, iterative reconstruction, and/or weight based d osing when appropriate to reduce radiation dose to as low as reasonably achievable (ALARA). [facility]: Dose Right [facility]: CareDose [facility]: Dose Right [facility]: Teradose 4D [facility]: [employer] RADIATION DOSE: CT Rad equipment meets quality standard of care and radiation dose reduction techniq ues were employed. CTDIvol: 5.3 mGy. DLP: 207 mGy-cm. mGy. LIMITATIONS: No technical limitations. FINDINGS: LUNGS AND PLEURA: Stable pulmonary exam. No focal consolidation, pleural effusion, or pne umothorax. HILAR AND MEDIASTINAL STRUCTURES: No identified masses or abnormal nodes. No obvious aneurysm. HEART AND VASCULAR STRUCTURES: Cardiomegaly. Coronary artery disease. Ectatic appearing ascending a juan. UPPER ABDOMEN: Status post cholecystectomy. Left adrenal mass is not appear to be significantly suarez ged from 2010 imaging. Few subcentimeter left periaortic lymph nodes are demonstrated. THYROID AND OTHER SOFT TISSUES: No masses. No adenopathy. BONES: No significant finding. HARDWARE: None in the chest. OTHER: No other significant findings. IMPRESSION: Stable CT appearance of the chest. No evidence of acute cardiopulmonary abnormality. C hronic and incidental findings as detailed above. TECHNICAL DOCUMENTATION: JOB ID: [id number] Quality ID # [id number]: Final reports with documentation of one or more dose reduction techniques (e.g., Au tomated exposure control, adjustment of the mA and/or kV according to patient size, use of iterative reconstruction technique) 2010 [employer]- All Rights Reserved Reading location - IP/workstation name: [email or web address]
[2020-06-22 20:19] LABS: ARTERIAL BLOOD BASE EXCESS 3.1 mmol/L; ARTERIAL BLOOD FIO2 ROOM AIR; ARTERIAL BLOOD H2CO3 0.96 mmol/L (1.05-1.35); ARTERIAL BLOOD HCO3 25.4 mmol/L (20-24); ARTERIAL BLOOD O2 SATURATION 97.6 % (94-98); ARTERIAL BLOOD PCO2 31.8 mmHg (35-45); ARTERIAL BLOOD PH 7.52 (7.35-7.45); ARTERIAL BLOOD PO2 88.3 mmHg (80-100); ARTERIAL BLOOD TOTAL CO2 26.4 mmol/L (21-25)
[2020-06-22] MEDS ORDERED: ONDANSETRON 4 MG TAB.RAPDIS PO ONE (20:36)
[2020-06-22] MEDS ORDERED: LABETALOL HCL INJ 20 MG/4 ML DISP.SYRIN IV ONE (20:50)
[2020-06-22 23:31] VITALS: BP 137/70
== END 2020-06-22 23:31 | disposition home or self-care (01) ==
LOC: ER 11:25
DX: J44.1 Chronic obstructive pulmonary disease with (acute) exacerbation (principal); T41.5X6A Underdosing of therapeutic gases, initial encounter; Z91.14 Patient's other noncompliance with medication regimen; N30.01 Acute cystitis with hematuria; M54.6 Pain in thoracic spine; R00.0 Tachycardia, unspecified; R11.0 Nausea; R07.1 Chest pain on breathing; R06.02 Shortness of breath; F01.50 Vascular dementia, unspecified severity, without behavioral disturbance, psychotic disturbance, mood disturbance, and anxiety; I10 Essential (primary) hypertension; Z87.01 Personal history of pneumonia (recurrent); Z88.6 Allergy status to analgesic agent; Z88.5 Allergy status to narcotic agent; Z88.8 Allergy status to other drugs, medicaments and biological substances; Z91.041 Radiographic dye allergy status; Z88.3 Allergy status to other anti-infective agents; I25.10 Atherosclerotic heart disease of native coronary artery without angina pectoris
CPT/HCPCS: 94640; 99285; 96375; 96365; 36415; 87040; 87086; 82803; 83735; 85025; 87088; 80053; 81001; 84484; 87186; 71045; 71250; A9270; J3490 ×2; J0696; J0456; S0119

== ENCOUNTER 2020-07-19 13:50 | Inpatient (IN) | payer MEDICARE, OTHER ==
[2020-07-19] MEDS ORDERED: NORMAL SALINE 500 ML IV ONE (14:33)
--- NOTE | 2020-07-19 14:35 | ER Document Report ---
ED Medical Screen (RME) - General Chief Complaint: Urinary Problem Stated Complaint: URINARY PROBLEM Time Seen by Provider: 07/19/20 14:23 Primary Care Provider: LISA LUTZ MD [Primary Care Provider] - Follow up as needed TRAVEL OUTSIDE OF THE [place] IN LAST 30 DAYS: No - HPI Notes: Patient is an 84-year-old female who presents with back pain that began a couple days ago. She denies any fall or recent injury. She also reports frequent urinary frequency but denies dysuria, abdominal pain, hematuria, and fever. She also denies saddle numbness, urinary and bowel incontinence, chest pain or shortness of breath. Patient has a history of hypertension and rheumatic heart. Patient is a poor historian and cannot recall much of her history. When reviewing prior prescriptions it appears patient was prescribed ciprofloxacin 3 days ago. - Related Data Allergies/Adverse Reactions: codeine [Codeine] Allergy (Intermediate, Verified 05/15/13 00:26) celecoxib [From Celebrex] Allergy (Unknown, Verified 05/15/13:26) Iodinated Contrast Media [IV Dye, Iodine Containing] Allergy (Verified 05/15/13:26) iodine [Iodine] Allergy (Verified 05/15/13 00:26) povidone-iodine [From Betadine] Allergy (Verified 05/15/13:26) Soap [From Betadine] Allergy (Verified 05/15/13 00:26) Past Medical History - Past Medical History Cardiac Medical History: Reports: Hx Coronary Artery Disease - HIGH CHOLESTEROL, Hx Hypertension, Hx Heart Murmur Denies: Hx Heart Attack Pulmonary Medical History: Reports: Hx Asthma, Hx Bronchitis, Hx COPD, Hx Pneumonia Denies: Hx Tuberculosis Neurological Medical History: Denies: Hx Cerebrovascular Accident, Hx Seizures Endocrine Medical History: Reports: Hx Hypothyroidism Renal/ Medical History: Reports: Hx Kidney Stones, Hx Ovarian Cysts GI Medical History: Reports: Hx Gastroesophageal Reflux Disease Musculoskeltal Medical History: Reports Hx Arthritis Psychiatric Medical History: Reports: Hx Dementia, Hx Depression Traumatic Medical History: Reports: Hx Fractures - foot, tailbone, ribs Past Surgical History: Reports: Hx Appendectomy, Hx Cholecystectomy, Hx Hysterectomy, Hx Tubal Ligation. Denies: Hx Pacemaker - Immunizations Hx Diphtheria, Pertussis, Tetanus Vaccination: No Physical Exam - Vital signs Vitals: Temp Pulse Resp BP Pulse Ox 98.1 F 79 18 122/59 L 97 07/19/20 14:12 07/19/20 14:12 07/19/20 14:12 07/19/20 14:12 07/19/20 14:12 - Back Back: Tender - mid thoracic. No: Deformity/step-off, CVA tenderness, Vertebra tenderness Course - Re-evaluation Re-evalutation: I have greeted and performed a rapid initial assessment of this patient. A comprehensive ED assessment and evaluation of the patient, analysis of test results and completion of medical decision making process will be conducted by an additional ED providers. - Vital Signs Vital signs: Temp Pulse Resp BP Pulse Ox 98.1 F 79 18 122/59 L 97 07/19/20 14:12 07/19/20 14:12 07/19/20 14:12 07/19/20 14:12 07/19/20 14:12 Doctor's Discharge - Discharge Referrals: LISA LUTZ MD [Primary Care Provider] - Follow up as needed
[2020-07-19 15:03] LABS: ABSOLUTE LYMPHOCYTES (AUTO) 0.7 10^3/uL (0.5-4.7); ABSOLUTE MONOCYTES (AUTO) 0.6 10^3/uL (0.1-1.4); ABSOLUTE NEUT (AUTO) 2.7 10^3/uL (1.7-8.2); EOSINOPHILS % (AUTO) 0.8 % (0-6); HEMATOCRIT 36.3 % (36.0-47.0); HEMOGLOBIN 12.3 g/dL (12.0-15.5); LYMPHOCYTES % (AUTO) 17.5 % (13-45); MEAN CORPUSCULAR HEMOGLOBIN 27.2 pg (27.0-33.4); MEAN CORPUSCULAR HGB CONC 33.9 g/dL (32.0-36.0); MEAN CORPUSCULAR VOLUME 80 fl (80-97); PLATELET COUNT 272 10^3/uL (150-450); RED BLOOD COUNT 4.53 10^6/uL (3.72-5.28); RED CELL DISTRIBUTION WIDTH 13.9 % (11.5-14.0); SEGMENTED NEUTROPHILS % (AUTO) 66.7 % (42-78); TOTAL CELLS COUNTED % (AUTO) 100 %; WHITE BLOOD COUNT 4.1 10^3/uL (4.0-10.5)
[2020-07-19 15:24] LABS: ALBUMIN 4.3 g/dL (3.5-5.0); ALKALINE PHOSPHATASE 79 U/L (38-126); ANION GAP 10 (5-19); ASPARTATE AMINO TRANSFERASE 21 U/L (14-36); BILIRUBIN,DIRECT 0.2 mg/dL (0.0-0.4); BLOOD UREA NITROGEN 10 mg/dL (7-20); CALCIUM 9.6 mg/dL (8.4-10.2); CARBON DIOXIDE 29 mmol/L (22-30); CHLORIDE 85 mmol/L (98-107); GLUCOSE 104 mg/dL (75-110); POTASSIUM 4.2 mmol/L (3.6-5.0); TOTAL PROTEIN 6.7 g/dL (6.3-8.2)
--- NOTE | 2020-07-19 18:09 | ER Document Report ---
ED General - General Chief Complaint: Urinary Problem Stated Complaint: URINARY PROBLEM Time Seen by Provider: 07/19/20 14:23 Primary Care Provider: LISA LUTZ MD [Primary Care Provider] - Follow up as needed TRAVEL OUTSIDE OF THE [place] IN LAST 30 DAYS: No - HPI Notes: 84-year-old female presents with urinary frequency. Information is primarily obtained from patient's daughter. Patient's daughter states that patient has recently moved in with her and her disabled 4 weeks ago. They have noticed a significant decline in her mental status. She has a history of vascular dementia and her mental status seems to be worsening. Patient has not been eating or drinking much, they essentially had to force feed her for the first 2 weeks that she lived with them. She was diagnosed with a UTI recently, she completed 5 days of Cipro which had improved her symptoms. However her symptoms have seemed to be returning, since Sunday she is gone to the bathroom 107 times. They took a urine sample to the PCP and was started on another course of Cipro, urine culture has not yet resulted per the daughter, she reports that she really has not seen any improvement in her symptoms. Patient main complaint is having to go to the bathroom. There is Xanax listed in the med list which patient daughter states that she has not taken for the past 4 weeks since she has lived with them. - Related Data Allergies/Adverse Reactions: codeine [Codeine] Allergy (Intermediate, Verified 05/15/13 00:26) celecoxib [From Celebrex] Allergy (Unknown, Verified 05/15/13:) Iodinated Contrast Media [IV Dye, Iodine Containing] Allergy (Verified 05/15/13) iodine [Iodine] Allergy (Verified 05/15/13:) povidone-iodine [From Betadine] Allergy (Verified 05/15/13:) Soap [From Betadine] Allergy (Verified 05/15/13:) Past Medical History - General Information source: Relative - Social History Smoking Status: Unknown if Ever Smoked Family History: Reviewed & Not Pertinent - Past Medical History Cardiac Medical History: Reports: Hx Coronary Artery Disease - HIGH CHOLESTEROL, Hx Hypertension, Hx Heart Murmur Denies: Hx Heart Attack Pulmonary Medical History: Reports: Hx Asthma, Hx Bronchitis, Hx COPD, Hx Pneu monia Denies: Hx Tuberculosis Neurological Medical History: Denies: Hx Cerebrovascular Accident, Hx Seizures Endocrine Medical History: Reports: Hx Hypothyroidism Renal/ Medical History: Reports: Hx Kidney Stones, Hx Ovarian Cysts GI Medical History: Reports: Hx Gastroesophageal Reflux Disease Musculoskeletal Medical History: Reports Hx Arthritis Psychiatric Medical History: Reports: Hx Dementia, Hx Depression Traumatic Medical History: Reports: Hx Fractures - foot, tailbone, ribs Past Surgical History: Reports: Hx Appendectomy, Hx Cholecystectomy, Hx Hysterectomy, Hx Tubal Ligation. Denies: Hx Pacemaker - Immunizations Hx Diphtheria, Pertussis, Tetanus Vaccination: No Hx Pneumococcal Vaccination: 05/06/11 Review of Systems - Review of Systems Constitutional: denies: Fever EENT: No symptoms reported Cardiovascular: No symptoms reported Respiratory: No symptoms reported Gastrointestinal: denies: Abdominal pain, Diarrhea, Vomiting Genitourinary: See HPI Female Genitourinary: No symptoms reported Musculoskeletal: denies: Back pain Skin: No symptoms reported Hematologic/Lymphatic: No symptoms reported Neurological/Psychological: Other - Dementia Physical Exam - Vital signs Vitals: Temp Pulse Resp BP Pulse Ox 98.1 F 79 18 122/59 L 97 07/19/20 14:12 07/19/20 14:12 07/19/20 14:12 07/19/20 14:12 07/19/20 14:12 - General General appearance: Appears well, Alert In distress: None - HEENT Head: Normocephalic, Atraumatic Extraocular movements intact: Yes Pupils: PERRL - Respiratory Breath sounds: Normal - Cardiovascular Rhythm: Regular Heart sounds: Normal auscultation - Abdominal Distension: No distension Tenderness: Nontender - Extremities General upper extremity: Normal color, Normal temperature General lower extremity: Normal color, Normal temperature. No: Edema - Neurological Neuro grossly intact: Yes Cognition: Confused Santhosh Coma Scale Eye Opening: Spontaneous [place] Coma Scale Verbal: Oriented [place] Coma Scale Motor: Obeys Commands [place] Coma Scale Total: 15 - Psychological Associated symptoms: Confused - Skin Skin Temperature: Warm Course - Re-evaluation Re-evalutation: 84-year-old female here with urinary frequency and worsening dementia. Has recently had 2 urinary tract infections, currently on course of Cipro. On exam she is alert, confused and repeating the phrase I have to go, she is redirectable, she is oriented to her daughter. She has no gross focal neuro deficits. Hemodynamically stable, afebrile. Abdomen is soft and without focal area of tenderness. Concern that UTI is causing delirium which is accounting for the family's report of worsening dementia. Metabolic normality possible as well as they reports she has not been eating or drinking much. Less likely ac sylvester intra-abdominal pathology. No obvious head trauma or trauma to extremities. Labs and urine ordered through the triage process. There is no leukocytosis or left shift, no acute anemia. She is hyponatremic to 124 and hypochloremic as well. Her creatinine is within normal limits. I suspect this likely to be due to her poor nutritional intake. Have added on serum and and urine osmolality, will additionally check urine sodium has well. She is receiving a slow bolus of 500 cc normal saline. Her urine has leukoesterase and pyuria, sent for culture, will cover with Rocephin as her urine culture from June does have E. coli with good sensitivities. The hospital seamless tube mill operator was contacted and Dr. Lutz was paged for admission. 07/19/20 20:50 Have been able to talk with Dr. Lutz, patient will be admitted to the medical floor. Thyroid studies are within normal limits. Urine and serum osmolality are both low, suspect her hyponatremia is due to poor intake - Vital Signs Vital signs: Temp Pulse Resp BP Pulse Ox 98.1 F 79 18 122/59 L 97 07/19/20 14:12 07/19/20 14:12 07/19/20 14:12 07/19/20 14:12 07/19/20 14:12 - Laboratory Results Result Diagrams: 07/19/20 14:40 07/19/20 14:40 Laboratory Results Interpreted: 07/19/20 07/19/20 07/19/20 14:40 14:40 14:40 [place] % (Auto) 14.0 H Sodium 124.2 L Chloride 85 L Serum Osmolality 257 L Urine Ketones Ur Leukocyte Esterase Urine Osmolality 07/19/20 07/19/20 17:30 17:30 [place] % (Auto) Sodium Chloride Serum Osmolality Urine Ketones TRACE H Ur Leukocyte Esterase MODERATE H Urine Osmolality 294 L Critical Laboratory Results Reviewed: No Critical Results - Radiology Results Critical Radiology Results Reviewed: No Critical Results Discharge - Discharge Clinical Impression: Hyponatremia, Pyuria Disposition: ADMITTED INPATIENT Admitting Provider: Nanda Unit Admitted: Medical Floor Referrals: LISA LUTZ MD [Primary Care Provider] - Follow up as needed
[2020-07-19 18:14] LABS: APPEARANCE,URINE CLEAR; BILIRUBIN,URINE NEGATIVE (NEGATIVE); COLOR,URINE YELLOW; GLUCOSE, URINE NEGATIVE (NEGATIVE); KETONES,URINE TRACE mg/dL (NEGATIVE); LEUKOCYTE ESTERASE,URINE MODERATE (NEGATIVE); NITRITE,URINE NEGATIVE (NEGATIVE); PROTEIN,URINE NEGATIVE (NEGATIVE); URINE SPECIFIC GRAVITY 1.012; UROBILINOGEN,URINE NEGATIVE mg/dL (<2.0)
[2020-07-19] MEDS ORDERED: CEFTRIAXONE 1 GM/D5W RTU 1 GM/50 ML RTUPB IV ONE (18:27)
[2020-07-19 19:15] LABS: FREE T4 (FREE THYROXINE) 1.91 ng/dL (0.78-2.19)
[2020-07-19 19:29] LABS: THYROID STIMULATING HORMONE 1.12 uIU/mL (0.47-4.68)
[2020-07-19 19:53] LABS: URINE SODIUM 35 mmol/L (30-90)
[2020-07-19 20:01] LABS: OSMOLALITY,URINE 294 mOsm/kg (300-900)
[2020-07-19] MEDS ORDERED: ACETAMINOPHEN 325 MG TABLET PO PRN (23:25)
[2020-07-19] MEDS: NORMAL SALINE 1000 ML 1,000 ML IV PRN (23:32)
[2020-07-20 05:54] LABS: ANION GAP 7 (5-19); BLOOD UREA NITROGEN 9 mg/dL (7-20); CARBON DIOXIDE 28 mmol/L (22-30); CHLORIDE 92 mmol/L (98-107); GLUCOSE 89 mg/dL (75-110); POTASSIUM 3.9 mmol/L (3.6-5.0)
[2020-07-20] MEDS: ENOXAPARIN SODIUM INJ 40 MG/0.4 ML DISP.SYRIN SUBCUT SCH (09:49)
[2020-07-20] MEDS: HYDRALAZINE HCL 50 MG TABLET PO SCH ×2 (09:49→21:35)
[2020-07-20] MEDS ORDERED: (PENDING PHARMACY ID) (Hydralazine Hcl [Hydralazine Hcl] 100 MG Tablet) PO SCH (10:00)
[2020-07-20] MEDS ORDERED: SENNOSIDES 8.6 MG PO SCH (10:00)
[2020-07-20] MEDS ORDERED: TELMISARTAN 80 MG PO SCH (10:00)
[2020-07-20] MEDS: NORMAL SALINE 1000 ML 1,000 ML IV PRN (13:07)
[2020-07-20] MEDS: BENZONATATE 100 MG CAPSULE PO SCH ×2 (13:08→21:35)
[2020-07-20] MEDS: CEFTRIAXONE 1 GM/D5W RTU 1 GM/50 ML RTUPB IV SCH (13:08)
[2020-07-20] MEDS: PANTOPRAZOLE SODIUM 40 MG TABLET.DR PO SCH (13:08)
[2020-07-20] MEDS: ALBUTEROL SULFATE HFA (90 MCG/PUFF) 8 GM MDI IH SCH ×3 (14:55→21:37)
[2020-07-20] MEDS: VERAPAMIL HCL 240 MG TABLET.SA PO SCH ×2 (14:55→21:35)
[2020-07-20] MEDS: LOSARTAN POTASSIUM 50 MG TABLET PO SCH (14:56)
[2020-07-20] MEDS: LATANOPROST 0.005% OPH SOLN 2.5 ML OU SCH (21:34)
[2020-07-20] MEDS: MONTELUKAST SODIUM 10 MG TABLET PO SCH (21:35)
--- NOTE | 2020-07-20 22:21 | PDOC PROGRESS REPORT ---
Subjective Date:: 07/20/20 Subjective:: Patient seen by the bedside, she was admitted for hyponatremia, nurses report no new complaints Reason For Visit: SYMPTOMATIC HYPONATREMIA;UTI WITH FAILURE OF Physical Exam Vital Signs: Temp Pulse Resp BP Pulse Ox 98.3 F 76 16 134/49 H 97 07/20/20 20:40 07/20/20 20:40 07/20/20 20:40 07/20/20 20:40 07/20/20 20:40 Intake & Output 07/19/20 07/20/20 07/21/20 06:59 06:59 06:59 Intake Total 250 1768 Balance 250 1768 Weight 58.1 kg General appearance: PRESENT: no acute distress Eye exam: PRESENT: PERRLA Respiratory exam: PRESENT: clear to auscultation kalyan Cardiovascular exam: PRESENT: +S1, +S2 Neurological exam: PRESENT: alert Results Laboratory Results: 07/19/20 14:40 07/20/20 04:35 07/20/20 04:35 Sodium 127.4 L Potassium 3.9 Chloride 92 L Carbon Dioxide 28 Anion Gap 7 BUN 9 Creatinine 0.65 Est GFR ( Amer) > 60 Glucose 89 Calcium 9.0 Assessment & Plan - Diagnosis (1) Hyponatremia Is this a current diagnosis for this admission?: Yes Plan: She has hyponatremia of SIADH type, continue present treatment (2) Dementia Qualifiers: Dementia type: Alzheimer's disease Alzheimer's disease onset: other onset Dementia behavioral disturbance: without behavioral disturbance Qualified Code(s): G30.8 - Other Alzheimer's disease; F02.80 - Dementia in other diseases classified elsewhere without behavioral disturbance Is this a current diagnosis for this admission?: Yes - Time Time Spent with patient: 15-24 minutes Level of Care: IMCU Medications reviewed and adjusted accordingly: Yes Anticipated discharge: Home Anticipated DC Timeframe: Other - Inpatient Certification Based on my medical assessment, after consideration of the patient's comorbidities, presenting symptoms, or acuity I expect that the services needed warrant INPATIENT care.: Yes I certify that my determination is in accordance with my understanding of Medicare's requirements for reasonable and necessary INPATIENT services [42 CFR 412.3e].: Yes
[2020-07-21] MEDS: ALBUTEROL SULFATE HFA (90 MCG/PUFF) 8 GM MDI IH SCH ×6 (02:18→22:58)
[2020-07-21] MEDS: PANTOPRAZOLE SODIUM 40 MG TABLET.DR PO SCH (05:32)
[2020-07-21] MEDS: BENZONATATE 100 MG CAPSULE PO SCH ×3 (05:32→22:58)
[2020-07-21] MEDS: LEVOTHYROXINE SODIUM 0.075 MG TABLET PO SCH (05:34)
[2020-07-21 05:35] LABS: ABSOLUTE BASOPHILS # (AUTO) 0.1 10^3/uL (0.0-0.2); ABSOLUTE EOSINOPHILS # (AUTO) 0.1 10^3/uL (0.0-0.6); ABSOLUTE LYMPHOCYTES (AUTO) 0.9 10^3/uL (0.5-4.7); ABSOLUTE MONOCYTES (AUTO) 0.6 10^3/uL (0.1-1.4); ABSOLUTE NEUT (AUTO) 2.3 10^3/uL (1.7-8.2); HEMATOCRIT 31.2 % (36.0-47.0); HEMOGLOBIN 10.9 g/dL (12.0-15.5); LYMPHOCYTES % (AUTO) 22.1 % (13-45); MEAN CORPUSCULAR HEMOGLOBIN 27.8 pg (27.0-33.4); MEAN CORPUSCULAR HGB CONC 34.9 g/dL (32.0-36.0); MEAN CORPUSCULAR VOLUME 80 fl (80-97); MONOCYTES % (AUTO) 15.8 % (3-13); PLATELET COUNT 217 10^3/uL (150-450); RED BLOOD COUNT 3.92 10^6/uL (3.72-5.28); RED CELL DISTRIBUTION WIDTH 13.7 % (11.5-14.0); SEGMENTED NEUTROPHILS % (AUTO) 58.1 % (42-78); TOTAL CELLS COUNTED % (AUTO) 100 %; WHITE BLOOD COUNT 3.9 10^3/uL (4.0-10.5)
[2020-07-21 06:01] LABS: ALBUMIN 3.3 g/dL (3.5-5.0); ALKALINE PHOSPHATASE 67 U/L (38-126); ANION GAP 8 (5-19); ASPARTATE AMINO TRANSFERASE 18 U/L (14-36); BILIRUBIN,DIRECT 0.1 mg/dL (0.0-0.4); BILIRUBIN,TOTAL 0.6 mg/dL (0.2-1.3); BLOOD UREA NITROGEN 5 mg/dL (7-20); CALCIUM 8.8 mg/dL (8.4-10.2); CARBON DIOXIDE 23 mmol/L (22-30); CHLORIDE 95 mmol/L (98-107); GLUCOSE 88 mg/dL (75-110); POTASSIUM 3.6 mmol/L (3.6-5.0); TOTAL PROTEIN 5.6 g/dL (6.3-8.2)
[2020-07-21] MEDS: CEFTRIAXONE 1 GM/D5W RTU 1 GM/50 ML RTUPB IV SCH (09:33)
[2020-07-21] MEDS: ENOXAPARIN SODIUM INJ 40 MG/0.4 ML DISP.SYRIN SUBCUT SCH (09:33)
[2020-07-21] MEDS: HYDRALAZINE HCL 50 MG TABLET PO SCH ×2 (09:33→22:58)
[2020-07-21] MEDS: LOSARTAN POTASSIUM 50 MG TABLET PO SCH (09:33)
[2020-07-21] MEDS: SENNOSIDES/DOCUSATE 8.6-50 MG 1 EACH TABLET PO SCH (09:33)
[2020-07-21] MEDS: VERAPAMIL HCL 240 MG TABLET.SA PO SCH ×2 (09:34→22:58)
[2020-07-21] MEDS: NORMAL SALINE 1000 ML 1,000 ML IV PRN (09:39)
--- NOTE | 2020-07-21 20:51 | PDOC H&P ---
History of Present Illness Admission Date/PCP: 07/19/20 20:53 LISA CLEMENTSMALLORIEPIPPA Patient complains of: Urinary Frequency History of Present Illness: HUNG STOCKTON is a 84 year old female patient known to my practice who presented to the ED with daughter due to reported worsening urinary frequency, poor oral intake, and failed outpatient attempt at treating her for urinary tract infection. Patient's daughter reported associated worsening mental status. Her morbidities include vascular dementia and daughter reported that she noticed worsening self care ability since patient moved to live with her and her disabled son-in-law over the last four weeks. Patient denied any associated nausea, vomiting, abdominal pain, flank pain, hematuria, or malodor to her urine . Her initial evaluation in the ED was significant for severe hyponatremia and abnormal urinalysis. She was advised hospitalization for further evaluation and management. Her morbidities are as listed below. Past Medical History Cardiac Medical History: Reports: Coronary Artery Disease - HIGH CHOLESTEROL, Hypertension, Heart Murmur Denies: Myocardial Infarction Pulmonary Medical History: Reports: Asthma, Bronchitis, Chronic Obstructive Pulmonary Disease (COPD), Pneumonia Denies: Tuberculosis Neurological Medical History: Denies: Seizures Endocrine Medical History: Reports: Hypothyroidism GI Medical History: Reports: Gastroesophageal Reflux Disease Musculoskeltal Medical History: Reports: Arthritis Psychiatric Medical History: Reports: Dementia, Depression Hematology: Reports: Anemia Past Surgical History Past Surgical History: Reports: Appendectomy, Cholecystectomy, Hysterectomy, Tubal Ligation Denies: Pacemaker Social History Smoking Status: Unknown if Ever Smoked Electronic Cigarette use?: No Frequency of Alcohol Use: None Hx Recreational Drug Use: No Drugs: None Hx Prescription Drug Abuse: No - Advance Directive Resuscitation Status: Full Code Family History Family History: Reviewed & Not Pertinent Parental Family History Reviewed: Yes Children Family History Reviewed: Yes Sibling(s) Family History Reviewed.: Yes Medication/Allergy Home Medications: Benzonatate [Tessalon Perles 100 mg Capsule] 100 mg PO Q8 06/26/19 Furosemide [Lasix 40 mg Tablet] 40 mg PO DAILY 06/26/19 Hydralazine HCl 100 mg PO Q12 06/26/19 Latanoprost [Xalatan 0.005% Oph Soln 2.5 ml] 1 drop OU QHS 06/26/19 Levothyroxine Sodium [Synthroid 0.075 mg Tablet] 0.075 mg PO Q6AM 11/21/19 Montelukast Sodium [Singulair 10 mg Tablet] 10 mg PO QHS 06/26/19 Verapamil HCl [Verapamil ER] 240 mg PO Q12 06/26/19 Albuterol Sulfate [Albuterol Sulfate Hfa] 2 puff IH Q4 07/19/20 Alprazolam [Xanax 0.25 mg Tablet] 0.25 mg PO HSP PRN 07/19/20 Sennosides [Senna] 17.2 mg PO DAILY 07/19/20 Telmisartan 80 mg PO DAILY 07/19/20 Allergies/Adverse Reactions: codeine [Codeine] Allergy (Intermediate, Verified 05/15/13 00:26) celecoxib [From Celebrex] Allergy (Unknown, Verified 05/15/13 00:26) Iodinated Contrast Media [IV Dye, Iodine Containing] Allergy (Verified 05/15/13:26) iodine [Iodine] Allergy (Verified 05/15/13 00:26) povidone-iodine [From Betadine] Allergy (Verified 05/15/13:26) Soap [From Betadine] Allergy (Verified 05/15/13 00:26) Review of Systems Constitutional: ABSENT: chills, fever(s), headache(s) Eyes: ABSENT: visual disturbances Ears: ABSENT: hearing changes Cardiovascular: ABSENT: chest pain, dyspnea on exertion, edema, orthropnea, palpitations Respiratory: ABSENT: cough, hemoptysis Gastrointestinal: ABSENT: abdominal pain, constipation, diarrhea, hematemesis, hematochezia, nausea, vomiting Genitourinary: PRESENT: other - urinary frequency. ABSENT: dysuria, hematuria Musculoskeletal: ABSENT: joint swelling Integumentary: ABSENT: rash, wounds Neurological: PRESENT: memory loss - due to baseline vascular dementia, weakness - generalized. ABSENT: abnormal gait, abnormal speech, dizziness, focal weakness, syncope Psychiatric: ABSENT: anxiety, depression, homidical ideation, suicidal ideation Endocrine: ABSENT: cold intolerance, heat intolerance, polydipsia, polyuria Hematologic/Lymphatic: ABSENT: easy bleeding, easy bruising, lymphadenopathy Allergic/Immunologic: ABSENT: seasonal rhinorrhea Physical Exam Vital Signs: Temp Pulse Resp BP Pulse Ox 98.0 F 77 18 147/55 H 95 07/21/20 16:40 07/21/20 16:40 07/21/20 16:40 07/21/20 16:40 07/21/20 16:40 Intake & Output 07/20/20 07/21/20 07/22/20 06:59 06:59 06:59 Intake Total 250 3068 356 Balance 250 3068 356 Weight 58.1 kg 58.1 kg General appearance: PRESENT: no acute distress Head exam: PRESENT: atraumatic, normocephalic Eye exam: PRESENT: conjunctiva pink, EOMI, PERRLA. ABSENT: scleral icterus Ear exam: PRESENT: normal external ear exam Mouth exam: PRESENT: moist, tongue midline Neck exam: PRESENT: full ROM. ABSENT: carotid bruit, JVD, lymphadenopathy, thyromegaly Respiratory exam: PRESENT: clear to auscultation kalyan Cardiovascular exam: PRESENT: RRR, +S1, +S2, systolic murmur. ABSENT: diastolic murmur, rubs Murmur grade: 3 Vascular exam: ABSENT: pallor GI/Abdominal exam: PRESENT: normal bowel sounds, soft. ABSENT: distended, guarding, mass, organolmegaly, rebound, tenderness Rectal exam: PRESENT: deferred Extremities exam: ABSENT: pedal edema Musculoskeletal exam: PRESENT: deformity - with multiple joints invollvement with arthritis Neurological exam: PRESENT: alert, awake, oriented to person, oriented to place, oriented to situation, CN II-XII grossly intact. ABSENT: oriented to time, motor sensory deficit Psychiatric exam: PRESENT: appropriate affect, normal mood. ABSENT: homicidal ideation, suicidal ideation Skin exam: PRESENT: dry, intact, warm. ABSENT: cyanosis, rash Results Laboratory Results: 07/21/20 04:28 07/21/20 04:28 07/21/20 07/21/20 04:28 04:28 WBC 3.9 L RBC 3.92 Hgb 10.9 L Hct 31.2 L MCV 80 MCH 27.8 MCHC 34.9 RDW 13.7 Plt Count 217 Seg Neutrophils % 58.1 Sodium 125.7 L Potassium 3.6 Chloride 95 L Carbon Dioxide 23 Anion Gap 8 BUN 5 L Creatinine 0.65 Est GFR ( Amer) > 60 Glucose 88 Calcium 8.8 Total Bilirubin 0.6 AST 18 Alkaline Phosphatase 67 Total Protein 5.6 L Albumin 3.3 L 07/19/20 17:30 Clean Catch Midstream Urine Culture - Final Staph Coagulase Negative Assessment & Plan - Diagnosis (1) Abnormal urinalysis Is this a current diagnosis for this admission?: Yes Plan: See admitting attending physician for details about care plan. (2) Increased urinary frequency Is this a current diagnosis for this admission?: Yes Plan: See admitting attending physician for details about care plan. (3) Hyponatremia Is this a current diagnosis for this admission?: Yes Plan: See admitting attending physician for details about care plan. (4) Hypothyroidism Qualifiers: Hypothyroidism type: unspecified Qualified Code(s): E03.9 - Hypothyroidism, unspecified Is this a current diagnosis for this admission?: Yes Plan: See admitting attending physician for details about care plan. (5) HTN (hypertension) Qualifiers: Hypertension type: essential hypertension Qualified Code(s): I10 - Essential (primary) hypertension (6) COPD (chronic obstructive pulmonary disease) Qualifiers: COPD type: COPD with acute exacerbation Qualified Code(s): J44.1 - Chronic obstructive pulmonary disease with (acute) exacerbation Is this a current diagnosis for this admission?: Yes Plan: See admitting attending physician for details about care plan. (7) GERD (gastroesophageal reflux disease) Qualifiers: Esophagitis presence: esophagitis presence not specified Qualified Code(s): K21.9 - Gastro-esophageal reflux disease without esophagitis Is this a current diagnosis for this admission?: Yes Plan: See admitting attending physician for details about care plan. (8) Depression Qualifiers: Depression Type: unspecified Qualified Code(s): F32.9 - Major depressive disorder, single episode, unspecified Is this a current diagnosis for this admission?: Yes Plan: See admitting attending physician for details about care plan. (9) Osteoarthritis involving multiple joints on both sides of body Is this a current diagnosis for this admission?: Yes Plan: See admitting attending physician for details about care plan. - Time Time Spent: 50 to 70 Minutes Medications reviewed and adjusted accordingly: Yes Anticipated Discharge Disposition: Home with Home Health Anticipated Discharge Timeframe: within 72 hours - Inpatient Certification Based on my medical assessment, after consideration of the patient's matilde rbidities, presenting symptoms, or acuity I expect that the services needed warrant INPATIENT care.: Yes I certify that my determination is in accordance with my understanding of Medicare's requirements for reasonable and necessary INPATIENT services [42 CFR 412.3e].: Yes Medical Necessity: Significant Comorbidiites Make Outpatient Treatment Too Risky, Need Close Monitoring Due to Risk of Patient Decompensation, Need For IV Fluids, Need For Continuous Telemetry Monitoring, Need for IV Antibiotics, Risk of Complication if Not Cared For in Hospital, Risk of Diagnosis Which Will Require Inpatient Eval/Care/Monitoring Post Hospital Care: D/C Scanning Tech Documentation - Plan Summary Plan Summary: See admitting attending physician for details about care plan.
--- NOTE | 2020-07-21 21:06 | PDOC PROGRESS REPORT ---
Subjective Date:: 07/21/20 Subjective:: Patient denied any chest pain or difficulty with breathing. No nausea, vomiting, or abdominal pain. Reported satisfactory oral intake today. No reported fever or chills. Reason For Visit: SYMPTOMATIC HYPONATREMIA;UTI WITH FAILURE OF Physical Exam Vital Signs: Temp Pulse Resp BP Pulse Ox 98.0 F 77 18 147/55 H 95 07/21/20 16:40 07/21/20 16:40 07/21/20 16:40 07/21/20 16:40 07/21/20 16:40 Intake & Output 07/20/20 07/21/20 07/22/20 06:59 06:59 06:59 Intake Total 250 3068 524 Balance 250 3068 524 Weight 58.1 kg 58.1 kg General appearance: PRESENT: no acute distress Head exam: PRESENT: atraumatic, normocephalic Mouth exam: PRESENT: moist Respiratory exam: PRESENT: clear to auscultation kalyan Cardiovascular exam: PRESENT: RRR, +S1, +S2 Murmur grade: 3 Vascular exam: ABSENT: pallor GI/Abdominal exam: PRESENT: normal bowel sounds, soft. ABSENT: tenderness Extremities exam: ABSENT: pedal edema Neurological exam: PRESENT: alert, awake, oriented to person, oriented to place Skin exam: PRESENT: dry, warm Results Laboratory Results: 07/21/20 04:28 07/21/20 04:28 07/21/20 07/21/20 04:28 04:28 WBC 3.9 L RBC 3.92 Hgb 10.9 L Hct 31.2 L MCV 80 MCH 27.8 MCHC 34.9 RDW 13.7 Plt Count 217 Seg Neutrophils % 58.1 Sodium 125.7 L Potassium 3.6 Chloride 95 L Carbon Dioxide 23 Anion Gap 8 BUN 5 L Creatinine 0.65 Est GFR ( Amer) > 60 Glucose 88 Calcium 8.8 Total Bilirubin 0.6 AST 18 Alkaline Phosphatase 67 Total Protein 5.6 L Albumin 3.3 L 07/19/20 17:30 Clean Catch Midstream Urine Culture - Final Staph Coagulase Negative Assessment & Plan - Diagnosis (1) Increased urinary frequency Is this a current diagnosis for this admission?: Yes Plan: Continue current medication management. (2) Abnormal urinalysis Is this a current diagnosis for this admission?: Yes (3) Hyponatremia Is this a current diagnosis for this admission?: Yes (4) Hypothyroidism Qualifiers: Hypothyroidism type: unspecified Qualified Code(s): E03.9 - Hypothyroidism, unspecified Is this a current diagnosis for this admission?: Yes (5) HTN (hypertension) Qualifiers: Hypertension type: essential hypertension Qualified Code(s): I10 - Essential (primary) hypertension Is this a current diagnosis for this admission?: Yes Plan: Continue current medication management. (6) COPD (chronic obstructive pulmonary disease) Qualifiers: COPD type: COPD with acute exacerbation Qualified Code(s): J44.1 - Chronic obstructive pulmonary disease with (acute) exacerbation Is this a current diagnosis for this admission?: Yes (7) GERD (gastroesophageal reflux disease) Qualifiers: Esophagitis presence: esophagitis presence not specified Qualified Code(s): K21.9 - Gastro-esophageal reflux disease without esophagitis Is this a current diagnosis for this admission?: Yes (8) Depression Qualifiers: Depression Type: unspecified Qualified Code(s): F32.9 - Major depressive disorder, single episode, unspecified Is this a current diagnosis for this admission?: Yes (9) Osteoarthritis involving multiple joints on both sides of body Is this a current diagnosis for this admission?: Yes - Time Time Spent with patient: 25-34 minutes Level of Care: MEDICAL Medications reviewed and adjusted accordingly: Yes Anticipated discharge: Home with Homehealth Anticipated DC Timeframe: within 72 hours - Inpatient Certification Based on my medical assessment, after consideration of the patient's comorbidities, presenting symptoms, or acuity I expect that the services needed warrant INPATIENT care.: Yes I certify that my determination is in accordance with my understanding of Medicare's requirements for reasonable and necessary INPATIENT services [42 CFR 412.3e].: Yes Medical Necessity: Significant Comorbidiites Make Outpatient Treatment Too Risk y, Need Close Monitoring Due to Risk of Patient Decompensation, Need For IV Fluids, Need for IV Antibiotics, Risk of Complication if Not Cared For in Hospital, Risk of Diagnosis Which Will Require Inpatient Eval/Care/Monitoring Post Hospital Care: D/C Commercial Intern Documentation - Plan Summary Plan Summary: Continue all current medication management. Follow up on culture findings. Obtain BMP and CBC with diff in AM.
[2020-07-21] MEDS: MONTELUKAST SODIUM 10 MG TABLET PO SCH (22:58)
[2020-07-21] MEDS: LATANOPROST 0.005% OPH SOLN 2.5 ML OU SCH (22:59)
[2020-07-22] MEDS: ALBUTEROL SULFATE HFA (90 MCG/PUFF) 8 GM MDI IH SCH ×6 (03:50→21:27)
[2020-07-22] MEDS: LEVOTHYROXINE SODIUM 0.075 MG TABLET PO SCH (05:48)
[2020-07-22] MEDS: BENZONATATE 100 MG CAPSULE PO SCH ×3 (05:48→21:19)
[2020-07-22] MEDS: PANTOPRAZOLE SODIUM 40 MG TABLET.DR PO SCH (05:48)
[2020-07-22] MEDS: NORMAL SALINE 1000 ML 1,000 ML IV PRN ×2 (05:48→21:22)
[2020-07-22] MEDS: LOSARTAN POTASSIUM 50 MG TABLET PO SCH (09:01)
[2020-07-22] MEDS: ENOXAPARIN SODIUM INJ 40 MG/0.4 ML DISP.SYRIN SUBCUT SCH (09:01)
[2020-07-22] MEDS: VERAPAMIL HCL 240 MG TABLET.SA PO SCH ×2 (09:01→21:18)
[2020-07-22] MEDS: HYDRALAZINE HCL 50 MG TABLET PO SCH ×2 (09:01→21:19)
[2020-07-22] MEDS: SENNOSIDES/DOCUSATE 8.6-50 MG 1 EACH TABLET PO SCH (09:01)
[2020-07-22] MEDS: CEFTRIAXONE 1 GM/D5W RTU 1 GM/50 ML RTUPB IV SCH (09:02)
--- NOTE | 2020-07-22 18:39 | PDOC PROGRESS REPORT ---
Subjective Date:: 07/22/20 Subjective:: Patient denied any chest pain or difficulty with breathing. No nausea, vomiting, or abdominal pain. No reported fever or chills. Reason For Visit: SYMPTOMATIC HYPONATREMIA;UTI WITH FAILURE OF Physical Exam Vital Signs: Temp Pulse Resp BP Pulse Ox 98.9 F 74 17 121/89 H 96 07/22/20 11:16 07/22/20 11:16 07/22/20 11:16 07/22/20 11:16 07/22/20 11:16 Intake & Output 07/21/20 07/22/20 07/23/20 06:59 06:59 06:59 Intake Total 3068 1524 528 Balance 3068 1524 528 Weight 58.1 kg 58.1 kg Physical Exam: General appearance: PRESENT: no acute distress Head exam: PRESENT: atraumatic, normocephalic Eyes: PRESENT: Conjunctiva pink, ABSENT: pallor, sclera icterus Mouth exam: PRESENT: moist Respiratory exam: PRESENT: clear to auscultation kalyan Cardiovascular exam: PRESENT: RRR, +S1, +S2 Murmur grade: 3 GI/Abdominal exam: PRESENT: normal bowel sounds, soft. ABSENT: tenderness Extremities exam: ABSENT: pedal edema Neurological exam: PRESENT: alert, awake, oriented to person, oriented to place Skin exam: PRESENT: dry, warm Murmur grade: 3 Results Laboratory Results: 07/21/20 04:28 07/21/20 04:28 07/19/20 17:30 Clean Catch Midstream Urine Culture - Final Staph Coagulase Negative Assessment & Plan - Diagnosis (1) Increased urinary frequency Is this a current diagnosis for this admission?: Yes (2) Abnormal urinalysis Is this a current diagnosis for this admission?: Yes (3) Hyponatremia Is this a current diagnosis for this admission?: Yes (4) Hypothyroidism Qualifiers: Hypothyroidism type: unspecified Qualified Code(s): E03.9 - Hypothyroidism, unspecified Is this a current diagnosis for this admission?: Yes (5) HTN (hypertension) Qualifiers: Hypertension type: essential hypertension Qualified Code(s): I10 - Ess ential (primary) hypertension Is this a current diagnosis for this admission?: Yes (6) COPD (chronic obstructive pulmonary disease) Qualifiers: COPD type: COPD with acute exacerbation Qualified Code(s): J44.1 - Chronic obstructive pulmonary disease with (acute) exacerbation Is this a current diagnosis for this admission?: Yes (7) GERD (gastroesophageal reflux disease) Qualifiers: Esophagitis presence: esophagitis presence not specified Qualified Code(s): K21.9 - Gastro-esophageal reflux disease without esophagitis Is this a current diagnosis for this admission?: Yes (8) Depression Qualifiers: Depression Type: unspecified Qualified Code(s): F32.9 - Major depressive disorder, single episode, unspecified Is this a current diagnosis for this admission?: Yes (9) Osteoarthritis involving multiple joints on both sides of body Is this a current diagnosis for this admission?: Yes - Time Time Spent with patient: 15-24 minutes Level of Care: MEDICAL Medications reviewed and adjusted accordingly: Yes Anticipated discharge: SNF Anticipated DC Timeframe: within 72 hours - Inpatient Certification Based on my medical assessment, after consideration of the patient's comorbidities, presenting symptoms, or acuity I expect that the services needed warrant INPATIENT care.: Yes I certify that my determination is in accordance with my understanding of Medicare's requirements for reasonable and necessary INPATIENT services [42 CFR 412.3e].: Yes Medical Necessity: Significant Comorbidiites Make Outpatient Treatment Too Risky, Need Close Monitoring Due to Risk of Patient Decompensation, Need For IV Fluids, Need for IV Antibiotics, Risk of Complication if Not Cared For in Hospital, Risk of Diagnosis Which Will Require Inpatient Eval/Care/Monitoring Post Hospital Care: D/C or Transfer Summary - Plan Summary Plan Summary: Continue current medication management. Follow up on culture findings. Family is looking at SNF placement upon discharge.
[2020-07-22] MEDS: MONTELUKAST SODIUM 10 MG TABLET PO SCH (21:19)
[2020-07-22] MEDS: LATANOPROST 0.005% OPH SOLN 2.5 ML OU SCH (21:22)
[2020-07-23] MEDS: ALBUTEROL SULFATE HFA (90 MCG/PUFF) 8 GM MDI IH SCH ×5 (05:11→21:42)
[2020-07-23] MEDS: BENZONATATE 100 MG CAPSULE PO SCH ×3 (05:12→21:42)
[2020-07-23] MEDS: LEVOTHYROXINE SODIUM 0.075 MG TABLET PO SCH (05:12)
[2020-07-23] MEDS: PANTOPRAZOLE SODIUM 40 MG TABLET.DR PO SCH (05:12)
[2020-07-23] MEDS: HYDRALAZINE HCL 50 MG TABLET PO SCH ×2 (09:30→21:42)
[2020-07-23] MEDS: CEFTRIAXONE 1 GM/D5W RTU 1 GM/50 ML RTUPB IV SCH (09:30)
[2020-07-23] MEDS: SENNOSIDES/DOCUSATE 8.6-50 MG 1 EACH TABLET PO SCH (09:30)
[2020-07-23] MEDS: VERAPAMIL HCL 240 MG TABLET.SA PO SCH ×2 (09:30→21:42)
[2020-07-23] MEDS: LOSARTAN POTASSIUM 50 MG TABLET PO SCH (09:30)
[2020-07-23] MEDS: ENOXAPARIN SODIUM INJ 40 MG/0.4 ML DISP.SYRIN SUBCUT SCH (09:30)
[2020-07-23 10:19] LABS: ANION GAP 9 (5-19); BLOOD UREA NITROGEN 3 mg/dL (7-20); CALCIUM 9.1 mg/dL (8.4-10.2); CARBON DIOXIDE 22 mmol/L (22-30); CHLORIDE 98 mmol/L (98-107); GLUCOSE 114 mg/dL (75-110); POTASSIUM 3.6 mmol/L (3.6-5.0)
[2020-07-23] MEDS: ASCORBIC ACID 500 MG TABLET PO SCH (15:17)
[2020-07-23] MEDS: VITAMIN B COMPLEX TABLET PO SCH (15:18)
[2020-07-23] MEDS: IVERMECTIN 3 MG TABLET PO SCH (15:18)
[2020-07-23] MEDS: ZINC SULFATE 220 MG CAPSULE PO SCH (15:19)
--- NOTE | 2020-07-23 15:54 | PDOC PROGRESS REPORT ---
Subjective Date:: 07/23/20 Subjective:: Patient tested positive for COVID-19 per report today. Patient denied any chest pain or difficulty with breathing. No nausea, vomiting, or abdominal pain. No reported fever or chills. Reason For Visit: SYMPTOMATIC HYPONATREMIA;UTI WITH FAILURE OF Physical Exam Vital Signs: Temp Pulse Resp BP Pulse Ox 98.7 F 94 18 150/76 H 100 07/23/20 12:00 07/23/20 12:00 07/23/20 12:00 07/23/20 12:00 07/23/20 12:00 Intake & Output 07/22/20 07/23/20 07/24/20 06:59 06:59 06:59 Intake Total 1524 2818 120 Balance 1524 2818 120 Weight 58.1 kg 58 kg Physical Exam: General appearance: PRESENT: no acute distress Head exam: PRESENT: atraumatic, normocephalic Eyes: PRESENT: Conjunctiva pink, ABSENT: pallor, sclera icterus Mouth exam: PRESENT: moist Respiratory exam: PRESENT: clear to auscultation kalyan Cardiovascular exam: PRESENT: RRR, +S1, +S2 Murmur grade: 3 GI/Abdominal exam: PRESENT: normal bowel sounds, soft. ABSENT: tenderness Extremities exam: ABSENT: pedal edema Neurological exam: PRESENT: alert, awake, oriented to person, oriented to place Skin exam: PRESENT: dry, warm Murmur grade: 3 Results Laboratory Results: 07/21/20 04:28 07/23/20 09:22 07/23/20 09:22 Sodium 129.0 L Potassium 3.6 Chloride 98 Carbon Dioxide 22 Anion Gap 9 BUN 3 L Creatinine 0.63 Est GFR ( Amer) > 60 Glucose 114 H Calcium 9.1 Assessment & Plan - Diagnosis (1) Increased urinary frequency Is this a current diagnosis for this admission?: Yes (2) Abnormal urinalysis Is this a current diagnosis for this admission?: Yes (3) Hyponatremia Is this a current diagnosis for this admission?: Yes (4) Hypothyroidism Qualifiers: Hypothyroidism type: unspecified Qualified Code(s): E03.9 - Hypothyroidism, unspecified Is this a current diagnosis for this admission?: Yes (5) HTN (hypertension) Qualifiers: Hypertension type: essential hypertension Qualified Code(s): I10 - Essential (primary) hypertension Is this a current diagnosis for this admission?: Yes (6) COPD (chronic obstructive pulmonary disease) Qualifiers: COPD type: COPD with acute exacerbation Qualified Code(s): J44.1 - Chronic obstructive pulmonary disease with (acute) exacerbation Is this a current diagnosis for this admission?: Yes (7) GERD (gastroesophageal reflux disease) Qualifiers: Esophagitis presence: esophagitis presence not specified Qualified Code(s): K21.9 - Gastro-esophageal reflux disease without esophagitis Is this a current diagnosis for this admission?: Yes (8) Depression Qualifiers: Depression Type: unspecified Qualified Code(s): F32.9 - Major depressive disorder, single episode, unspecified Is this a current diagnosis for this admission?: Yes (9) Osteoarthritis involving multiple joints on both sides of body Is this a current diagnosis for this admission?: Yes - Time Time Spent with patient: 25-34 minutes Level of Care: MEDICAL Medications reviewed and adjusted accordingly: Yes Anticipated discharge: SNF Anticipated DC Timeframe: within 72 hours - Inpatient Certification Based on my medical assessment, after consideration of the patient's comorbidities, presenting symptoms, or acuity I expect that the services needed warrant INPATIENT care.: Yes I certify that my determination is in accordance with my understanding of Medicare's requirements for reasonable and necessary INPATIENT services [42 CFR 412.3e].: Yes Medical Necessity: Significant Comorbidiites Make Outpatient Treatment Too Risky, Need Close Monitoring Due to Risk of Patient Decompensation, Need For IV Fluids, Need for IV Antibiotics, Risk of Complication if Not Cared For in Hospital, Risk of Diagnosis Which Will Require Inpatient Eval/Care/Monitoring Post Hospital Care: D/C or Transfer Summary - Plan Summary Plan Summary: Start on COVID-19 protocol and supportive management. Maintain on all other current medication management.
[2020-07-23] MEDS: CHOLECALCIFEROL (D3) 1,000 UNIT (25 MCG) TABLET PO SCH (18:31)
[2020-07-23] MEDS: MONTELUKAST SODIUM 10 MG TABLET PO SCH (21:42)
[2020-07-23] MEDS: LATANOPROST 0.005% OPH SOLN 2.5 ML OU SCH (21:43)
[2020-07-24] MEDS: PANTOPRAZOLE SODIUM 40 MG TABLET.DR PO SCH (05:22)
[2020-07-24] MEDS: BENZONATATE 100 MG CAPSULE PO SCH ×3 (05:22→21:06)
[2020-07-24] MEDS: LEVOTHYROXINE SODIUM 0.075 MG TABLET PO SCH (05:22)
[2020-07-24] MEDS: ALBUTEROL SULFATE HFA (90 MCG/PUFF) 8 GM MDI IH SCH ×5 (05:23→21:06)
[2020-07-24] MEDS: VERAPAMIL HCL 240 MG TABLET.SA PO SCH ×2 (10:41→21:06)
[2020-07-24] MEDS: SENNOSIDES/DOCUSATE 8.6-50 MG 1 EACH TABLET PO SCH (10:41)
[2020-07-24] MEDS: CHOLECALCIFEROL (D3) 1,000 UNIT (25 MCG) TABLET PO SCH (10:49)
[2020-07-24] MEDS: CEFTRIAXONE 1 GM/D5W RTU 1 GM/50 ML RTUPB IV SCH (10:49)
[2020-07-24] MEDS: VITAMIN B COMPLEX TABLET PO SCH (10:49)
[2020-07-24] MEDS: ASCORBIC ACID 500 MG TABLET PO SCH (10:50)
[2020-07-24] MEDS: HYDRALAZINE HCL 50 MG TABLET PO SCH ×2 (10:50→21:06)
[2020-07-24] MEDS: ZINC SULFATE 220 MG CAPSULE PO SCH (10:50)
[2020-07-24] MEDS: LOSARTAN POTASSIUM 50 MG TABLET PO SCH (10:51)
[2020-07-24] MEDS: ENOXAPARIN SODIUM INJ 40 MG/0.4 ML DISP.SYRIN SUBCUT SCH (10:52)
[2020-07-24] MEDS: IVERMECTIN 3 MG TABLET PO SCH (11:00)
--- NOTE | 2020-07-24 20:00 | PDOC PROGRESS REPORT ---
Subjective Date:: 07/24/20 Subjective:: Patient seen by the bedside no new complaints Reason For Visit: SYMPTOMATIC HYPONATREMIA;UTI WITH FAILURE OF Physical Exam Vital Signs: Temp Pulse Resp BP Pulse Ox 98.6 F 85 17 131/51 H 98 07/24/20 15:33 07/24/20 15:33 07/24/20 15:33 07/24/20 15:33 07/24/20 15:33 Intake & Output 07/23/20 07/24/20 07/25/20 06:59 06:59 06:59 Intake Total 2818 290 1170 Output Total 350 Balance 2818 290 820 Weight 58 kg 58.4 kg General appearance: PRESENT: no acute distress Eye exam: PRESENT: PERRLA Respiratory exam: PRESENT: clear to auscultation kalyan Cardiovascular exam: PRESENT: +S1, +S2 Murmur grade: 3 GI/Abdominal exam: PRESENT: soft Neurological exam: PRESENT: alert Results Laboratory Results: 07/21/20 04:28 07/23/20 09:22 Assessment & Plan - Diagnosis (1) Hyponatremia Is this a current diagnosis for this admission?: Yes (2) Dementia Qualifiers: Dementia type: Alzheimer's disease Alzheimer's disease onset: other onset Dementia behavioral disturbance: without behavioral disturbance Qualified Code(s): G30.8 - Other Alzheimer's disease; F02.80 - Dementia in other diseases classified elsewhere without behavioral disturbance Is this a current diagnosis for this admission?: Yes - Time Time Spent with patient: Less than 15 minutes Level of Care: IMCU Medications reviewed and adjusted accordingly: Yes Anticipated discharge: SNF Anticipated DC Timeframe: when bed available
[2020-07-24] MEDS: NORMAL SALINE 1000 ML 1,000 ML IV PRN (20:15)
[2020-07-24] MEDS: MONTELUKAST SODIUM 10 MG TABLET PO SCH (21:06)
[2020-07-24] MEDS: LATANOPROST 0.005% OPH SOLN 2.5 ML OU SCH (21:21)
[2020-07-25] MEDS: LEVOTHYROXINE SODIUM 0.075 MG TABLET PO SCH (05:12)
[2020-07-25] MEDS: PANTOPRAZOLE SODIUM 40 MG TABLET.DR PO SCH (05:12)
[2020-07-25] MEDS: BENZONATATE 100 MG CAPSULE PO SCH ×3 (05:12→21:08)
[2020-07-25] MEDS: ALBUTEROL SULFATE HFA (90 MCG/PUFF) 8 GM MDI IH SCH ×5 (05:12→21:08)
[2020-07-25] MEDS: SENNOSIDES/DOCUSATE 8.6-50 MG 1 EACH TABLET PO SCH (09:22)
[2020-07-25] MEDS: LOSARTAN POTASSIUM 50 MG TABLET PO SCH (09:22)
[2020-07-25] MEDS: ZINC SULFATE 220 MG CAPSULE PO SCH (09:22)
[2020-07-25] MEDS: ASCORBIC ACID 500 MG TABLET PO SCH (09:23)
[2020-07-25] MEDS: CHOLECALCIFEROL (D3) 1,000 UNIT (25 MCG) TABLET PO SCH (09:23)
[2020-07-25] MEDS: HYDRALAZINE HCL 50 MG TABLET PO SCH ×2 (09:23→21:07)
[2020-07-25] MEDS: VERAPAMIL HCL 240 MG TABLET.SA PO SCH ×2 (09:25→21:08)
[2020-07-25] MEDS: CEFTRIAXONE 1 GM/D5W RTU 1 GM/50 ML RTUPB IV SCH (09:25)
[2020-07-25] MEDS: ENOXAPARIN SODIUM INJ 40 MG/0.4 ML DISP.SYRIN SUBCUT SCH (09:26)
[2020-07-25] MEDS: VITAMIN B COMPLEX TABLET PO SCH (09:26)
[2020-07-25] MEDS: NORMAL SALINE 1000 ML 1,000 ML IV PRN (15:31)
--- NOTE | 2020-07-25 19:06 | PDOC PROGRESS REPORT ---
Subjective Date:: 07/25/20 Subjective:: She said she wants to go home Reason For Visit: SYMPTOMATIC HYPONATREMIA;UTI WITH FAILURE OF Physical Exam Vital Signs: Temp Pulse Resp BP Pulse Ox 98.1 F 73 16 139/48 H 98 07/25/20 15:37 07/25/20 15:37 07/25/20 15:37 07/25/20 15:37 07/25/20 15:37 Intake & Output 07/24/20 07/25/20 07/26/20 06:59 06:59 06:59 Intake Total 1290 1380 1790 Output Total 850 1200 Balance 1290 530 590 Weight 58.4 kg General appearance: PRESENT: no acute distress Eye exam: PRESENT: PERRLA Respiratory exam: PRESENT: clear to auscultation kalyan Cardiovascular exam: PRESENT: +S1, +S2 Murmur grade: 3 GI/Abdominal exam: PRESENT: soft Neurological exam: PRESENT: alert Results Laboratory Results: 07/21/20 04:28 07/23/20 09:22 Assessment & Plan - Diagnosis (1) Hyponatremia Is this a current diagnosis for this admission?: Yes (2) Dementia Qualifiers: Dementia type: Alzheimer's disease Alzheimer's disease onset: other onset Dementia behavioral disturbance: without behavioral disturbance Qualified Code(s): G30.8 - Other Alzheimer's disease; F02.80 - Dementia in other diseases classified elsewhere without behavioral disturbance Is this a current diagnosis for this admission?: Yes - Time Time Spent with patient: Less than 15 minutes Level of Care: IMCU Medications reviewed and adjusted accordingly: Yes Anticipated discharge: Home Anticipated DC Timeframe: Other
[2020-07-25] MEDS: LATANOPROST 0.005% OPH SOLN 2.5 ML OU SCH (21:08)
[2020-07-25] MEDS: MONTELUKAST SODIUM 10 MG TABLET PO SCH (21:08)
[2020-07-26] MEDS: ALBUTEROL SULFATE HFA (90 MCG/PUFF) 8 GM MDI IH SCH ×6 (03:41→22:31)
[2020-07-26] MEDS: PANTOPRAZOLE SODIUM 40 MG TABLET.DR PO SCH (06:19)
[2020-07-26] MEDS: BENZONATATE 100 MG CAPSULE PO SCH ×3 (06:19→21:39)
[2020-07-26] MEDS: LEVOTHYROXINE SODIUM 0.075 MG TABLET PO SCH (06:19)
[2020-07-26] MEDS: HYDRALAZINE HCL 50 MG TABLET PO SCH ×2 (09:43→21:38)
[2020-07-26] MEDS: ZINC SULFATE 220 MG CAPSULE PO SCH (09:43)
[2020-07-26] MEDS: SENNOSIDES/DOCUSATE 8.6-50 MG 1 EACH TABLET PO SCH (09:43)
[2020-07-26] MEDS: ASCORBIC ACID 500 MG TABLET PO SCH (09:43)
[2020-07-26] MEDS: LOSARTAN POTASSIUM 50 MG TABLET PO SCH (09:43)
[2020-07-26] MEDS: CHOLECALCIFEROL (D3) 1,000 UNIT (25 MCG) TABLET PO SCH (09:43)
[2020-07-26] MEDS: CEFTRIAXONE 1 GM/D5W RTU 1 GM/50 ML RTUPB IV SCH (09:44)
[2020-07-26] MEDS: VITAMIN B COMPLEX TABLET PO SCH (09:44)
[2020-07-26] MEDS: VERAPAMIL HCL 240 MG TABLET.SA PO SCH ×2 (09:44→21:38)
[2020-07-26] MEDS: ENOXAPARIN SODIUM INJ 40 MG/0.4 ML DISP.SYRIN SUBCUT SCH (09:45)
[2020-07-26] MEDS: NORMAL SALINE 1000 ML 1,000 ML IV PRN (14:16)
--- NOTE | 2020-07-26 21:01 | PDOC PROGRESS REPORT ---
Subjective Date:: 07/26/20 Subjective:: Patient's positive COVID-19 test result has hampered her SNF placement. Patient denied any chest pain or difficulty with breathing. No nausea, vomiting, or abdominal pain. No reported fever or chills. Reason For Visit: SYMPTOMATIC HYPONATREMIA;UTI WITH FAILURE OF Physical Exam Vital Signs: Temp Pulse Resp BP Pulse Ox 98.1 F 80 19 90/59 L 96 07/26/20 15:13 07/26/20 15:13 07/26/20 15:13 07/26/20 15:13 07/26/20 15:13 Intake & Output 07/25/20 07/26/20 07/27/20 06:59 06:59 06:59 Intake Total 1380 2790 170 Output Total 850 2450 925 Balance 530 340 -755 Physical Exam: General appearance: PRESENT: no acute distress Head exam: PRESENT: atraumatic, normocephalic Eyes: PRESENT: Conjunctiva pink, ABSENT: pallor, sclera icterus Mouth exam: PRESENT: moist Respiratory exam: PRESENT: clear to auscultation kalyan Cardiovascular exam: PRESENT: RRR, +S1, +S2 Murmur grade: 3 GI/Abdominal exam: PRESENT: normal bowel sounds, soft. ABSENT: tenderness Extremities exam: ABSENT: pedal edema Neurological exam: PRESENT: alert, awake, oriented to person, oriented to place Skin exam: PRESENT: dry, warm Murmur grade: 3 Results Laboratory Results: 07/21/20 04:28 07/23/20 09:22 Assessment & Plan - Diagnosis (1) Increased urinary frequency Is this a current diagnosis for this admission?: Yes (2) Abnormal urinalysis Is this a current diagnosis for this admission?: Yes (3) Hyponatremia Is this a current diagnosis for this admission?: Yes (4) Hypothyroidism Qualifiers: Hypothyroidism type: unspecified Qualified Code(s): E03.9 - Hypothyroidism, unspecified Is this a current diagnosis for this admission?: Yes (5) HTN (hypertension) Qualifiers: Hypertension type: essential hypertension Qualified Code(s): I10 - Essential (primary) hypertension Is this a current diagnosis for this admission?: Yes (6) COPD (chronic obstructive pulmonary disease) Qualifiers: COPD type: COPD with acute exacerbation Qualified Code(s): J44.1 - Chronic obstructive pulmonary disease with (acute) exacerbation Is this a current diagnosis for this admission?: Yes (7) GERD (gastroesophageal reflux disease) Qualifiers: Esophagitis presence: esophagitis presence not specified Qualified Code(s): K21.9 - Gastro-esophageal reflux disease without esophagitis Is this a current diagnosis for this admission?: Yes (8) Depression Qualifiers: Depression Type: unspecified Qualified Code(s): F32.9 - Major depressive disorder, single episode, unspecified Is this a current diagnosis for this admission?: Yes (9) Osteoarthritis involving multiple joints on both sides of body Is this a current diagnosis for this admission?: Yes - Time Time Spent with patient: 25-34 minutes Level of Care: IMCU Medications reviewed and adjusted accordingly: Yes Anticipated discharge: SNF Anticipated DC Timeframe: within 72 hours - Inpatient Certification Based on my medical assessment, after consideration of the patient's comorbidities, presenting symptoms, or acuity I expect that the services needed warrant INPATIENT care.: Yes I certify that my determination is in accordance with my understanding of Medicare's requirements for reasonable and necessary INPATIENT services [42 CFR 412.3e].: Yes Medical Necessity: Significant Comorbidiites Make Outpatient Treatment Too Risky, Need Close Monitoring Due to Risk of Patient Decompensation, Risk of Complication if Not Cared For in Hospital, Risk of Diagnosis Which Will Require Inpatient Eval/Care/Monitoring Post Hospital Care: D/C or Transfer Summary - Plan Summary Plan Summary: Continue current medication management. Follow up with d/c airport planner regarding SNF placement that will accept COVID-19 positive patient.
[2020-07-26] MEDS: MONTELUKAST SODIUM 10 MG TABLET PO SCH (21:38)
[2020-07-26] MEDS: LATANOPROST 0.005% OPH SOLN 2.5 ML OU SCH (22:32)
[2020-07-27] MEDS: ALBUTEROL SULFATE HFA (90 MCG/PUFF) 8 GM MDI IH SCH ×6 (02:59→21:29)
[2020-07-27] MEDS: NORMAL SALINE 1000 ML 1,000 ML IV PRN ×2 (03:37→18:28)
[2020-07-27] MEDS: BENZONATATE 100 MG CAPSULE PO SCH ×3 (05:15→21:27)
[2020-07-27] MEDS: PANTOPRAZOLE SODIUM 40 MG TABLET.DR PO SCH (05:15)
[2020-07-27] MEDS: LEVOTHYROXINE SODIUM 0.075 MG TABLET PO SCH (05:15)
[2020-07-27] MEDS: LOSARTAN POTASSIUM 50 MG TABLET PO SCH (10:51)
[2020-07-27] MEDS: ASCORBIC ACID 500 MG TABLET PO SCH (10:51)
[2020-07-27] MEDS: ZINC SULFATE 220 MG CAPSULE PO SCH (10:51)
[2020-07-27] MEDS: CHOLECALCIFEROL (D3) 1,000 UNIT (25 MCG) TABLET PO SCH (10:51)
[2020-07-27] MEDS: HYDRALAZINE HCL 50 MG TABLET PO SCH ×2 (10:51→21:27)
[2020-07-27] MEDS: SENNOSIDES/DOCUSATE 8.6-50 MG 1 EACH TABLET PO SCH (10:51)
[2020-07-27] MEDS: VITAMIN B COMPLEX TABLET PO SCH (10:52)
[2020-07-27] MEDS: ENOXAPARIN SODIUM INJ 40 MG/0.4 ML DISP.SYRIN SUBCUT SCH (10:52)
[2020-07-27] MEDS: VERAPAMIL HCL 240 MG TABLET.SA PO SCH ×2 (10:52→21:27)
--- NOTE | 2020-07-27 17:20 | PDOC PROGRESS REPORT ---
Subjective Date:: 07/27/20 Subjective:: Patient denied any chest pain or difficulty with breathing. No nausea, vomiting, or abdominal pain. No reported fever or chills. She refused basic assistance with self care so far today. Family expressed wish to take patient home with BAR ATTENDANT service and hospital bed to assist with her breathing due to patient's COPD. Reason For Visit: SYMPTOMATIC HYPONATREMIA;UTI WITH FAILURE OF Physical Exam Vital Signs: Temp Pulse Resp BP Pulse Ox 97.9 F 74 19 138/59 H 93 07/27/20 12:07 07/27/20 13:58 07/27/20 12:07 07/27/20 12:07 07/27/20 12:07 Intake & Output 07/26/20 07/27/20 07/28/20 06:59 06:59 06:59 Intake Total 2790 1560 Output Total 2450 1865 Balance 340 -305 Weight 58.4 kg 58.4 kg Physical Exam: General appearance: PRESENT: no acute distress Head exam: PRESENT: atraumatic, normocephalic Eyes: PRESENT: Conjunctiva pink, ABSENT: pallor, sclera icterus Mouth exam: PRESENT: moist Respiratory exam: PRESENT: clear to auscultation kalyan Cardiovascular exam: PRESENT: RRR, +S1, +S2 Murmur grade: 3 GI/Abdominal exam: PRESENT: normal bowel sounds, soft. ABSENT: tenderness Extremities exam: ABSENT: pedal edema Neurological exam: PRESENT: alert, awake, oriented to person, oriented to place Skin exam: PRESENT: dry, warm Murmur grade: 3 Results Laboratory Results: 07/21/20 04:28 07/23/20 09:22 Assessment & Plan - Diagnosis (1) Increased urinary frequency Is this a current diagnosis for this admission?: Yes (2) Abnormal urinalysis Is this a current diagnosis for this admission?: Yes (3) Hyponatremia Is this a current diagnosis for this admission?: Yes (4) Hypothyroidism Qualifiers: Hypothyroidism type: unspecified Qualified Code(s): E03.9 - Hypothyroidism, unspecified Is this a current diagnosis for this admission?: Yes (5) HTN (hypertension) Qualifiers: Hypertension type: essential hypertension Qualified Code(s): I10 - Essential (primary) hypertension Is this a current diagnosis for this admission?: Yes (6) COPD (chronic obstructive pulmonary disease) Qualifiers: COPD type: COPD with acute exacerbation Qualified Code(s): J44.1 - Chronic obstructive pulmonary disease with (acute) exacerbation Is this a current diagnosis for this admission?: Yes Plan: Continue current medication management. She requires the head of the bed to be elevated more than 30 degrees most of the time due to COPD. Pillows or wedges were considered and ruled out to attain this postural support to aid her COPD management. She will be discharge home with hospital bed. (7) GERD (gastroesophageal reflux disease) Qualifiers: Esophagitis presence: esophagitis presence not specified Qualified Code(s): K21.9 - Gastro-esophageal reflux disease without esophagitis Is this a current diagnosis for this admission?: Yes (8) Depression Qualifiers: Depression Type: unspecified Qualified Code(s): F32.9 - Major depressive disorder, single episode, unspecified Is this a current diagnosis for this admission?: Yes (9) Osteoarthritis involving multiple joints on both sides of body Is this a current diagnosis for this admission?: Yes - Time Time Spent with patient: 25-34 minutes Level of Care: IMCU Medications reviewed and adjusted accordingly: Yes Anticipated discharge: Home with Homehealth Anticipated DC Timeframe: within 48 hours - Inpatient Certification Based on my medical assessment, after consideration of the patient's comorbidities, presenting symptoms, or acuity I expect that the services needed warrant INPATIENT care.: Yes I certify that my determination is in accordance with my understanding of Medicare's requirements for reasonable and necessary INPATIENT services [42 CFR 412.3e].: Yes Medical Necessity: Significant Comorbidiites Make Outpatient Treatment Too Risky, Need Close Monitoring Due to Risk of Patient Decompensation, Need For IV Fluids, Need For Continuous Telemetry Monitoring, Risk of Complication if Not Cared For in Hospital, Risk of Diagnosis Which Will Require Inpatient Eval/Care/Monitoring Post Hospital Care: D/C Dental Biller Documentation - Plan Summary Plan Summary: Continue current medication management. She will be discharged home with hospital bed for postural management of her COPD and BAR ATTENDANT services for rehabilitation and skill nursing needs.
[2020-07-27] MEDS: MONTELUKAST SODIUM 10 MG TABLET PO SCH (21:27)
[2020-07-27] MEDS: LATANOPROST 0.005% OPH SOLN 2.5 ML OU SCH (21:28)
[2020-07-28] MEDS: ALBUTEROL SULFATE HFA (90 MCG/PUFF) 8 GM MDI IH SCH ×5 (01:24→17:11)
[2020-07-28] MEDS: PANTOPRAZOLE SODIUM 40 MG TABLET.DR PO SCH (05:41)
[2020-07-28] MEDS: LEVOTHYROXINE SODIUM 0.075 MG TABLET PO SCH (05:42)
[2020-07-28] MEDS: BENZONATATE 100 MG CAPSULE PO SCH ×2 (05:42→13:10)
[2020-07-28] MEDS: NORMAL SALINE 1000 ML 1,000 ML IV PRN (08:39)
[2020-07-28] MEDS: ASCORBIC ACID 500 MG TABLET PO SCH (09:39)
[2020-07-28] MEDS: HYDRALAZINE HCL 50 MG TABLET PO SCH (09:39)
[2020-07-28] MEDS: ZINC SULFATE 220 MG CAPSULE PO SCH (09:39)
[2020-07-28] MEDS: CHOLECALCIFEROL (D3) 1,000 UNIT (25 MCG) TABLET PO SCH (09:39)
[2020-07-28] MEDS: SENNOSIDES/DOCUSATE 8.6-50 MG 1 EACH TABLET PO SCH (09:39)
[2020-07-28] MEDS: LOSARTAN POTASSIUM 50 MG TABLET PO SCH (09:39)
[2020-07-28] MEDS: ENOXAPARIN SODIUM INJ 40 MG/0.4 ML DISP.SYRIN SUBCUT SCH (09:40)
[2020-07-28] MEDS: VITAMIN B COMPLEX TABLET PO SCH (09:41)
[2020-07-28] MEDS: VERAPAMIL HCL 240 MG TABLET.SA PO SCH (09:41)
[2020-07-28 18:01] VITALS: BP 149/58
--- NOTE | 2020-07-28 19:08 | PDOC DISCHARGE SUMMARY ---
Impression - Admit/DC Date/PCP Admission Date/Primary Care Provider: 07/19/20 20:53 LISA LUTZ Discharge Date: 07/28/20 - Discharge Diagnosis (1) Increased urinary frequency Is this a current diagnosis for this admission?: Yes (2) Abnormal urinalysis Is this a current diagnosis for this admission?: Yes (3) Hyponatremia Is this a current diagnosis for this admission?: Yes (4) Hypothyroidism Is this a current diagnosis for this admission?: Yes (5) HTN (hypertension) Is this a current diagnosis for this admission?: Yes (6) COPD (chronic obstructive pulmonary disease) Is this a current diagnosis for this admission?: Yes (7) GERD (gastroesophageal reflux disease) Is this a current diagnosis for this admission?: Yes (8) Depression Is this a current diagnosis for this admission?: Yes (9) Osteoarthritis involving multiple joints on both sides of body Is this a current diagnosis for this admission?: Yes - Assessment Summary: She was admitted for abnormal urinalysis with hyponatremia. Her urine culture was unrevealing for any significant pathogen. Her urinary frequency did improved. Her hyponatremia was managed with IV normal saline infusion and liberal salt intake with some improvement. Patient family initially requested SNF placement upon discharge that prompted her testing for COVID-19 infection. She tested positive for COVID-19 infection and treated appropriately. Family later rescinded SNF placement and want patient discharged home. She has remain symptom free and without supplemental oxygen usage. She will follow up in the office as instructed upon discharge. - Additional Information Resuscitation Status: Full Code Discharge Diet: Regular Discharge Activity: Activity As Tolerated Referrals: LISA LUTZ MD [Primary Care Provider] - 08/09/20 10:00 am Prescriptions: Vitamin B Complex [Vitamin B Complex Tablet] 1 tab PO DAILY #30 tablet Ascorbic Acid [Vitamin C 500 mg Tablet] 1,000 mg PO DAILY #30 tablet Cholecalciferol (Vitamin D3) [Vitamin D3 1000 Unit Tablet] 1,000 unit PO DAILY #30 tablet Zinc Sulfate [Zinc-220 Capsule] 220 mg PO DAILY #30 capsule Home Medications: Benzonatate [Tessalon Perles 100 mg Capsule] 100 mg PO Q8 06/26/19 Furosemide [Lasix 40 mg Tablet] 40 mg PO DAILY 06/26/19 Hydralazine HCl 100 mg PO Q12 06/26/19 Latanoprost [Xalatan 0.005% Oph Soln 2.5 ml] 1 drop OU QHS 06/26/19 Levothyroxine Sodium [Synthroid 0.075 mg Tablet] 0.075 mg PO Q6AM 06/26/19 Montelukast Sodium [Singulair 10 mg Tablet] 10 mg PO QHS 06/26/19 Verapamil HCl [Verapamil ER] 240 mg PO Q12 06/26/19 Albuterol Sulfate [Albuterol Sulfate Hfa] 2 puff IH Q4 07/19/20 Alprazolam [Xanax 0.25 mg Tablet] 0.25 mg PO HSP PRN 07/19/20 Sennosides [Senna] 17.2 mg PO DAILY 07/19/20 Telmisartan 80 mg PO DAILY 07/19/20 Ascorbic Acid [Vitamin C 500 mg Tablet] 1,000 mg PO DAILY #30 tablet 07/28/20 Cholecalciferol (Vitamin D3) [Vitamin D3 1000 Unit Tablet] 1,000 unit PO DAILY #30 tablet 07/28/20 Vitamin B Complex [Vitamin B Complex Tablet] 1 tab PO DAILY #30 tablet 07/28/20 Zinc Sulfate [Zinc-220 Capsule] 220 mg PO DAILY #30 capsule 07/28/20 History of Present Illiness History of Present Illness: HUNG STOCKTON is a 84 year old female patient known to my practice who presented to the ED with daughter due to reported worsening urinary frequency, poor oral intake, and failed outpatient attempt at treating her for urinary tract infection. Patient's daughter reported associated worsening mental status. Her morbidities include vascular dementia and daughter reported that she noticed worsening self care ability since patient moved to live with her and her disabled son-in-law over the last four weeks. Patient denied any associated nausea, vomiting, abdominal pain, flank pain, hematuria, or malodor to her urine. Her initial evaluation in the ED was significant for severe hyponatremia and abnormal urinalysis. She was advised hospitalization for further evaluation and management. Her morbidities are as listed below. Hospital Course Hospital Course: She was admitted for abnormal urinalysis with hyponatremia. Her urine culture was unrevealing for any significant pathogen. Her urinary frequency did improved. Her hyponatremia was managed with IV normal saline infusion and liberal salt intake with some improvement. Patient family initially requested SNF placement upon discharge that prompted her testing for COVID-19 infection. She tested positive for COVID-19 infection and treated appropriately. Family later rescinded SNF placement and want patient discharged home. She has remain symptom free and without supplemental oxygen usage. She will follow up in the office as instructed upon discharge. Physical Exam Vital Signs: Temp Pulse Resp BP Pulse Ox 98.3 F 94 16 153/66 H 97 07/28/20 15:42 07/28/20 15:42 07/28/20 15:42 07/28/20 15:42 07/28/20 15:42 Intake & Output 07/27/20 07/28/20 07/29/20 06:59 06:59 06:59 Intake Total 1560 1770 1000 Output Total 1865 500 200 Balance -305 1270 800 Weight 58.4 kg 62.1 kg General appearance: PRESENT: no acute distress Head exam: PRESENT: atraumatic, normocephalic Eyes: PRESENT: Conjunctiva pink, ABSENT: pallor, sclera icterus Mouth exam: PRESENT: moist Respiratory exam: PRESENT: clear to auscultation kalyan Cardiovascular exam: PRESENT: RRR, +S1, +S2 Murmur grade: 3 GI/Abdominal exam: PRESENT: normal bowel sounds, soft. ABSENT: tenderness Extremities exam: ABSENT: pedal edema Neurological exam: PRESENT: alert, awake, oriented to person, oriented to place Skin exam: PRESENT: dry, warm Results Laboratory Results: WBC 3.9 10^3/uL (4.0-10.5) L 07/21/20 04:28 RBC 3.92 10^6/uL (3.72-5.28) 07/21/20 04:28 Hgb 10.9 g/dL (12.0-15.5) L 07/21/20 04:28 Hct 31.2 % (36.0-47.0) L 07/21/20 04:28 MCV 80 fl (80-97) 07/21/20 04:28 MCH 27.8 pg (27.0-33.4) 07/21/20 04:28 MCHC 34.9 g/dL (32.0-36.0) 07/21/20 04:28 RDW 13.7 % (11.5-14.0) 07/21/20 04:28 Plt Count 217 10^3/uL (150-450) 07/21/20 04:28 Lymph % (Auto) 22.1 % (13-45) 07/21/20 04:28 [place] % (Auto) 15.8 % (3-13) H 07/21/20 04:28 Eos % (Auto) 2.0 % (0-6) 07/21/20 04:28 Baso % (Auto) 2.0 % (0-2) 07/21/20 04:28 Absolute Neuts (auto) 2.3 10^3/uL (1.7-8.2) 07/21/20 04:28 Absolute Lymphs (auto) 0.9 10^3/uL (0.5-4.7) 07/21/20 04:28 Absolute Monos (auto) 0.6 10^3/uL (0.1-1.4) 07/21/20 04:28 Absolute Eos (auto) 0.1 10^3/uL (0.0-0.6) 07/21/20 04:28 Absolute Basos (auto) 0.1 10^3/uL (0.0-0.2) 07/21/20 04:28 Seg Neutrophils % 58.1 % (42-78) 07/21/20 04:28 Sodium 129.0 mmol/L (137-145) L 07/23/20 09:22 Potassium 3.6 mmol/L (3.6-5.0) 07/23/20 09:22 Chloride 98 mmol/L (98-107) 07/23/20 09:22 Carbon Dioxide 22 mmol/L (22-30) 07/23/20 09:22 Anion Gap 9 (5-19) 07/23/20 09:22 BUN 3 mg/dL (7-20) L 07/23/20 09:22 Creatinine 0.63 mg/dL (0.52-1.25) 07/23/20 09:22 Est GFR ( Amer) > 60 (>60) 07/23/20 09:22 Est GFR (MDRD) Non-Af > 60 (>60) 07/23/20 09:22 Glucose 114 mg/dL (75-110) H 07/23/20 09:22 Serum Osmolality 257 mOsm/kg (275-301) L 07/19/20 14:40 Calcium 9.1 mg/dL (8.4-10.2) 07/23/20 09:22 Total Bilirubin 0.6 mg/dL (0.2-1.3) 07/21/20 04:28 Direct Bilirubin 0.1 mg/dL (0.0-0.4) 07/21/20 04:28 Neonat Total Bilirubin Not Reportable 07/21/20 04:28 Neonat Direct Bilirubin Not Reportable 07/21/20 04:28 Neonat Indirect Bili Not Reportable 07/21/20 04:28 AST 18 U/L (14-36) 07/21/20 04:28 ALT 8 U/L (<35) 07/21/20 04:28 Alkaline Phosphatase 67 U/L (38-126) 07/21/20 04:28 Total Protein 5.6 g/dL (6.3-8.2) L 07/21/20 04:28 Albumin 3.3 g/dL (3.5-5.0) L 07/21/20 04:28 TSH 1.12 uIU/mL (0.47-4.68) 07/19/20 14:40 Free T4 1.91 ng/dL (0.78-2.19) 07/19/20 14:40 Urine Color YELLOW 07/19/20 17:30 Urine Appearance CLEAR 07/19/20 17:30 Urine pH 6.0 (5.0-9.0) 07/19/20 17:30 Ur Specific G[place] 1.012 07/19/20 17:30 Urine Protein NEGATIVE mg/dL (NEGATIVE) 07/19/20 17:30 Urine Glucose (UA) NEGATIVE mg/dL (NEGATIVE) 07/19/20 17:30 Urine Ketones TRACE mg/dL (NEGATIVE) H 07/19/20 17:30 Urine Blood NEGATIVE (NEGATIVE) 07/19/20 17:30 Urine Nitrite NEGATIVE (NEGATIVE) 07/19/20 17:30 Urine Bilirubin NEGATIVE (NEGATIVE) 07/19/20 17:30 Urine Urobilinogen NEGATIVE mg/dL (<2.0) 07/19/20 17:30 Ur Leukocyte Esterase MODERATE (NEGATIVE) H 07/19/20 17:30 Urine WBC (Auto) 7 /HPF 07/19/20 17:30 Urine RBC (Auto) 1 /HPF 07/19/20 17:30 Squamous Epi Cells Auto 4 /HPF 07/19/20 17:30 Urine Mucus (Auto) RARE /LPF 07/19/20 17:30 Urine Osmolality 294 mOsm/kg (300-900) L 07/19/20 17:30 Urine Sodium 35 mmol/L (30-90) 07/19/20 17:30 Urine Ascorbic Acid NEGATIVE (NEGATIVE) 07/19/20 17:30 COVID-19 Source See comment 07/22/20 05:50 COVID-19 (LINDA) DETECTED (Not Detect) A 07/22/20 05:50 Plan Health Concerns: High risk for readmission due to her dementia and care need. Plan of Treatment: Discharge with community support and close follow up. Goals: Reduce readmission risk. Time Spent: Greater than 30 Minutes - I had extensive discussion with technical planner, nursing staff, patient and daughter at bedside regarding post discharge care. Stroke Is this a Stroke Patient?: No Acute Heart Failure Is this a Heart Failure Patient?: No
== END 2020-07-28 18:37 | disposition home or self-care (01) | DRG 643 ==
LOC: ER 13:50 → EH 20:53 → 4N 22:34 → 3W 07-23 18:12
PROVIDERS: ADMIT Internal Medicine Geriatric Medicine; ATTEND Internal Medicine Geriatric Medicine
DX: E22.2 Syndrome of inappropriate secretion of antidiuretic hormone (principal); U07.1 COVID-19; J44.1 Chronic obstructive pulmonary disease with (acute) exacerbation; E03.9 Hypothyroidism, unspecified; I10 Essential (primary) hypertension; K21.9 Gastro-esophageal reflux disease without esophagitis; F32.9 Major depressive disorder, single episode, unspecified; M89.49 Other hypertrophic osteoarthropathy, multiple sites; R35.0 Frequency of micturition; I25.10 Atherosclerotic heart disease of native coronary artery without angina pectoris; D64.9 Anemia, unspecified; G30.8 Other Alzheimer's disease; F02.80 Dementia in other diseases classified elsewhere, unspecified severity, without behavioral disturbance, psychotic disturbance, mood disturbance, and anxiety; Z79.899 Other long term (current) drug therapy; Z79.890 Hormone replacement therapy; Z88.6 Allergy status to analgesic agent; Z91.041 Radiographic dye allergy status; Z88.8 Allergy status to other drugs, medicaments and biological substances; Z91.048 Other nonmedicinal substance allergy status
CPT/HCPCS: 36415; 80048; 80053; 81001; 83930; 83935; 84300; 84439; 84443; 85025; 87086; 87635; 96365; 99285; C9803; J0696; J1650; J3490; J7030